=== PATIENT | female | born 1955 | race Caucasian/White ===

== ENCOUNTER 2018-09-24 10:43 | Emergency (ER) | payer BC, SELFPAY ==
--- NOTE | 2018-09-24 10:48 | NUR.NOTE ---
Nursing Note: pt has been having lower abdominal cramps for the past 7 days that have progressively gotten worse. pt states that they feel like uterine cramps however is confidant they are not based on her age pt states that pain comes in waves 10 and is currently 10/10 however PT displays no obvious signs of physical discomfort at this moment
[2018-09-24 10:50] VITALS: BP 161/91; PULSE 70; RESP 18; TEMP 36.8; O2SAT 95
--- NOTE | 2018-09-24 11:12 | DI.CT_ITS ---
SYMPTOMS/DIAGNOSIS: ABDOMINAL PAIN CT OF THE ABDOMEN AND PELVIS: There are no prior comparison exams. Images were performed from the lung bases through the ischial tuberosities after IV and oral contrast. The exam is somewhat limited by lack of intraabdominal fat. There is the question of some focal thickening of the gastric antrum versus contraction. There is also a question of wall thickening versus contraction of a portion of the descending colon. The sigmoid colon and rectum are not opacified with oral contrast. There are a few scattered diverticula but no evidence of diverticulitis. There is no abnormal bowel distention. The appendix appears normal. The lung bases are clear. The liver shows a few tiny cysts. The gallbladder, spleen, pancreas and adrenals are unremarkable. There are a few small bilateral renal cysts. There is no hydronephrosis. The uterus and bladder are unremarkable. There is no free air or free fluid. There is an area of sclerosis in the S1 vertebral body consistent with a bone island. There is mild calcification of the aorta, but no evidence of an aneurysm. There are no significant degenerative changes of the spine. IMPRESSION: Area of questionable wall thickening of the descending colon, which could represent colitis versus non-distention. No diverticula are seen in this area. There is also a question of thickening versus contraction of the antrum of the stomach.
[2018-09-24] MEDS: Breeza Beverage 473 ML BTL PO ×2 (11:28→11:29)
[2018-09-24] MEDS: Omnipaque 350 MG/ML 50 ML BTL PO (11:29)
--- NOTE | 2018-09-24 11:33 | ED.GENADUL_ITS ---
Discharge Plan Disposition Patient Disposition: HOME Condition: Stable Discharge Details Chief Complaint: Abd Prob Clinical Impression: Colitis, acute Primary Care Provider: None,None ED Provider: Jaciel Pyle Home Meds and New Rx's Prescriptions: No Action No Known Home Meds RF: 0 Discharge Instructions Instructions: Colitis (ED) Additional Instructions: Return to the emergency department for any new or significant worsening of symptoms or change in your symptoms. Otherwise we will assist in establishing a primary care provider with you and a follow-up appointment preferably in the next 1 to 2 weeks. You may take 600 mg of ibuprofen along with 650-100mg of Tylenol every 6 hours as needed for discomfort and stay well-hydrated. Referrals: Victor Manuel Espino MD [ [facility] STAFF PHYSICIAN] - (Call the office in the next couple days for arrangement of follow-up appointment) Discharge Data Discharge Date/Time-TO BE ENTERED AT DEPARTURE: 09/24/18 16:11 Medical Decision Making Patient presenting the emergency department chief complaint of lower abdominal pain. X1 week. Patient states crampy abdominal pain that feels somewhat similar to previous menstrual cycles but otherwise is unremarkable. Physical exam shows right lower quadrant tenderness but no suprapubic tenderness. No risk factors for STI as patient is not sexually active. Plan to do labs and CT imaging for lower quadrant tenderness. Pending results patient given Toradol and IV fluids Review of labs show a nonspecific leukocytosis, slightly decreased sodium chloride along with increased anion gap, and some mild urine ketones. I feel that these abnormalities may represent some dehydration so additional liter of IV fluids was given. Review of CT imaging shows a nonspecific colitis otherwise no other acute findings noted by radiologist. Discussed bowel pattern with patient and she states that she is having normal bowel movements but has had more frequency over the past couple days but denies any fever chills, diarrhea. Given nonspecific finding and otherwise non-worrisome lab work-up I feel the patient is able to be safely discharged but close return precautions were discussed with patient. After discussion of diagnosis and plan of care patient has no further needs, questions, or concerns and states clear understanding to return to the emergency department for any worsening symptoms. HPI General Mode of arrival: ambulatory . Date/Time Provider Initiated Documentation: 09/24/18 10:49 . Limitations to Documentation: no limitations . Information obtained by: patient and RN notes reviewed . History of Present Illness 63 year old F presents to the emergency department with the chief complaint of Abdominal pain, described as severe, with intensity rated at 10. Quality is described as sharp (Cramp), and is localized to the abdomen (Lower abdomen). Patient started experiencing this day(s) (7) and it has been constant and colicky. No relieving factors improve symptom(s), No exacerbating factors reported . Patient notes no other symptoms.. Patient did receive the following treatments prior to arrival, NSAID Related Data Home Medications Medication Instructions Recorded Confirmed Unknown [No Known Home Meds] 09/24/18 09/24/18 Allergies Allergy/AdvReac Type Severity Reaction Status Date / Time No Known Allergies Allergy Unverified 09/24/18 10:52 General Stated Complaint: Abd Prob KAREN: 4 Review of Systems Constitutional Denies chills, Denies fever(s) and Denies poor appetite Cardiovascular Denies chest pain and Denies dyspnea Respiratory Denies cough and Denies dyspnea Gastrointestinal Reports as per HPI, Reports abdominal pain, Denies melena, Denies change in bowel habits, Denies constipation, Denies diarrhea, Denies nausea and Denies vomiting Genitourinary Denies abnormal vaginal bleeding, Denies hematuria, Denies dysuria, Denies flank pain, Denies urinary incontinence, Reports vaginal discharge (Single episode 2 weeks ago that resolved after 1 day) and Denies vaginal odor Integumentary/Breasts Denies rash [facility] Social History Smoking/Tobacco Use Status: Former Tobacco Use Tobacco: How many years used: 30 Alcohol Intake: current Alcohol Intake frequency: 0-2 drinks per day Alcohol type: wine Drug use: Rarely Substance use type: does not use Do you feel safe at home: Yes Do you feel safe in your relationship?: Yes Exam Const General: cooperative Orientation: alert, awake and oriented x3 Resp Effort & Inspection: normal respiratory effort and able to speak in complete sentences Auscultation: clear to auscultation bilaterally Cardio Rate: regular rate Rhythm: regular rhythm Heart Sounds: S1 normal and S2 normal GI Palpation: soft, no hepatosplenomegaly, not firm, guarding in the RLQ, no masses, no pulsatile masses, not rigid, no splenomegaly and tender in the RLQ and at McBurney's point; Johnson's sign negative and psoas sign negative Auscultation: normal bowel sounds Back/Spine/Pelvis Back: no CVA tenderness Neuro General: alert, awake, oriented x3, gait normal and moves all extremities Course Vital Signs Temperature 36.8 C 09/24/18 10:50 Pulse 70 09/24/18 10:50 Respiratory Rate 18 09/24/18 10:50 Blood Pressure 161/91 H 09/24/18 10:50 Pulse Oximetry 95 09/24/18 10:50 Temperature 36.8 C 09/24/18 10:50 Temperature Source Skin 09/24/18 10:50 Pulse 70 09/24/18 10:50 Respiratory Rate 18 09/24/18 10:50 Respiratory Effort 09/24/18 10:52 Blood Pressure 161/91 H 09/24/18 10:50 Blood Pressure Position Sitting 09/24/18 10:50 Pulse Oximetry 95 09/24/18 10:50 Oxygen Delivery Method Room Air 09/24/18 10:50 Oxygen Flow Rate 0 09/24/18 10:50 Pain Level 10 09/24/18 10:50
[2018-09-24] MEDS: Ketorolac 15 MG/ML VIAL IVP (11:37)
[2018-09-24 11:43] LABS: Abs Immature Grans 0.02 k/cumm (0.0-0.09); Absolute Basophil Count 0.01 k/cumm (0.0-0.2); Absolute Eosinophil Count 0.02 k/cumm (0.0-0.7); Absolute Lymphocyte Count 0.76 k/cumm (1.2-3.4); Absolute Monocyte Count 0.88 k/cumm (0.11-0.7); Absolute Neutrophil Count 9.61 k/cumm (1.2-6.7); Basophils % 0.1; Eosinophils % 0.2; HCT 44.7 % (36.0-46.0); HGB 15.4 g/dL (12.0-15.5); Immature Grans % 0.2; Lymphocytes % 6.7; Mean Corp. HGB Concentration 34.5 g/dL (32.0-36.0); Mean Corpuscular Hemoglobin 32.1 pg (27.0-33.0); Mean Corpuscular Volume 93.1 fL (80-95); Mean Platelet Volume 9.5 fL (8.0-11.0); Monocytes % 7.8; Platelet Count 213 x1000/uL (130-400); RBC Distribution Width 12.6 % (11.7-14.6)
[2018-09-24 12:09] LABS: ALT 17 U/L (12-78); AST 19 U/L (15-37); Albumin 4.1 g/dL (3.4-5.0); Alkaline Phosphatase 66 U/L (46-116); Anion Gap 12.4 mmol/L (3-11); BUN 7 mg/dL (7-18); Bilirubin, Total 0.7 mg/dL (0.2-1.0); CO2 24.6 mmol/L (21.0-32.0); CREATININE 0.68 mg/dL (0.55-1.02); Chloride 93 mmol/L (98-107); Glucose 82 mg/dL (70-100); Lipase 82 U/L (73-393); Potassium 4.1 mmol/L (3.5-5.1); Sodium 130 mmol/L (136-145); Total Protein 7.5 g/dL (6.4-8.2)
[2018-09-24] MEDS: Normal Saline 1,000 ML 1000 ML IV ×2 (12:24→14:23)
[2018-09-24 13:03] LABS: Bilirubin Negative (Negative); Blood Negative (Negative); Clarity Clear (Clear); Glucose Negative (Negative); Ketones 15 mg/dL (Negative); Leukocyte Esterase Negative (Negative); Nitrite Negative (Negative); Specific Gravity 1.015 (1.005-1.025); Urobilinogen 0.2 EU/dL (Up TO 0.2); pH 6.5 (5-8)
[2018-09-24 16:08] VITALS: BP 119/69; PULSE 69; RESP 18; TEMP 36.3; O2SAT 98
[2018-09-24 16:09] VITALS: BP 119/69; PULSE 69; RESP 18; TEMP 36.3; O2SAT 98
== END 2018-09-24 16:11 | disposition home or self-care (01) ==
PROVIDERS: Emergency Provider Nurse Practitioner Family
DX: K52.9 Noninfective gastroenteritis and colitis, unspecified (principal)
CPT/HCPCS: 36415; 80053; 83690; 96361; 96374; 99285; 74177; 81003; 83735; 85025; 99284; J1885; Q9967

== ENCOUNTER 2019-03-11 14:14 | Outpatient (CLI) | payer BC, SELFPAY ==
[2019-03-11 16:10] LABS: TSH (W/Ref FT4) 0.68 uIU/mL (0.36-3.74)
== END 2019-03-11 14:34 ==
PROVIDERS: Visit Provider Nurse Practitioner Family
DX: N95.0 Postmenopausal bleeding (principal)
CPT/HCPCS: 36415; 84443

== ENCOUNTER 2019-03-11 14:41 | Outpatient (REF) | payer BC, SELFPAY ==
--- NOTE | 2019-03-11 13:30 | PAPFT_PTH ---
PATIENT: Leticia Cortez LOC: [facility] U#:[id number] AGE/SX: 63/F ROOM: RE03/11/[address]: YUE Miller : 1955 BED: DIS: 03/11/2019 SPEC #: [id number] RECD: 03/11/19 17:45 STATUS: KARLEE REQ #: [id number] UVALDO: 03/11/19 13:[address]: Moriah Velasquez DEPT: [facility] Cytology RECD BY: Shae Rondon ENTERED: 03/11/19 17:45 SP TYPE: PAPFT OT DR: None Tissues: 1 - CX/ENDOCX FOR PAP SMEARS Procedures: PAP THIN PREP/UVM Screening HPV DNA PROBE Comments: [id number]
== END 2019-03-11 15:01 ==
LOC: LBN 14:41
PROVIDERS: Visit Provider Nurse Practitioner Family
DX: Z12.4 Encounter for screening for malignant neoplasm of cervix (principal); Z11.51 Encounter for screening for human papillomavirus (HPV)
CPT/HCPCS: 88142; 87624

== ENCOUNTER 2019-03-19 01:16 | Outpatient (CLI) | payer BC, SELFPAY ==
--- NOTE | 2019-03-19 12:56 | DI.US_ITS ---
EXAM: US PELVIS AND TRANSVAGINAL CLINICAL HISTORY: POST MENOPAUSAL BLEEDING N95.0 TECHNIQUE: Ultrasound performed using standard protocol. Transabdominal and transvaginal exams wer e performed. COMPARISON: CT ABDOMEN PELVIS W from 09/24/2018 FINDINGS: The uterus measures 5.2 x 2.7 x 4.1 cm. The endometrium is abnormally thickened for a postmenopausal patient at 8 millimeters. No focal endometrial abnormality is visible. No fibroids are seen. The righ t ovary is unremarkable. The left ovary was not well seen due to adjacent bowel. There is a cyst at t he upper pole of the right kidney. There is a small amount of fluid in the cul-de-sac. IMPRESSION: Abnormally thickened endometrium at 8 millimeters. No focal endometrial abnormality is seen.
--- NOTE | 2019-03-19 14:20 | DI.MAMMO_ITS ---
EXAM: MG MAMMO SCREENING CLINICAL HISTORY: SCREENING, Z12.39. TECHNIQUE: Full field digital CC and MLO mammographic images were obtained with 3D tomosynthesis and utilizing computer aided detection (CAD). COMPARISON: The patient has previous exams performed at [facility] in [place], [place] which are not available for comparison at this time. FINDINGS: Breast Density - Category D - Extremely dense Masses/Architectural Distortion: None seen. Microcalcifications: No suspicious pleomorphic-type calcifications are seen. Skin Thickening/Nipple Retraction: None. Axilla: Unremarkable. IMPRESSION: 1. BI-RADS category 1, negative. No significant interval change with no specific features of maligna ncy noted. 2. Unless there is more urgent need, screening mammography is recommended, as per [employer] guidelines. A negative radiographic report should not delay biopsy if a dominant or clinically suspicious mass is present. Up to ten percent of cancers are not identified on mammography. A negative report may reinforce clinical impression. Adenosis and dense breasts may obscure an underlying neoplasm. False positive reports average 6 to 10%. Patient will receive a letter notifying them of these results.
== END 2019-03-19 01:36 ==
PROVIDERS: Visit Provider Nurse Practitioner Family
DX: Z12.31 Encounter for screening mammogram for malignant neoplasm of breast (principal); N95.0 Postmenopausal bleeding; N28.1 Cyst of kidney, acquired; R93.89 Abnormal findings on diagnostic imaging of other specified body structures
CPT/HCPCS: 77063; 77067; 76830; 76856

== ENCOUNTER 2019-03-24 15:01 | Outpatient (REF) | payer BC, SELFPAY ==
--- NOTE | 2019-03-24 14:20 | ENDOMET_PTH ---
PATIENT: Leticia Cortez LOC: [facility] U#:[id number] AGE/SX: 63/F ROOM: RE03/24/[address]: Roopa Chairez : 1955 BED: DIS: 03/24/2019 SPEC #: [id number] RECD: 03/24/19 16:58 STATUS: KARLEE REQ #: [id number] UVALDO: 03/24/19 14:[address]: Roopa Chairez DEPT: Surgical Specimen RECD BY: Shae Rondon ENTERED: 03/24/19 16:59 SP TYPE: Endomet OTHR DR: None Tissues: 1 - ENDOMETRIUM BX/CURRETTE Procedures: GROSS AND MICRO LEVEL 4 Comments: [id number]
== END 2019-03-24 15:21 ==
LOC: LBN 15:01
PROVIDERS: Visit Provider Obstetrics & Gynecology Gynecology
DX: N84.0 Polyp of corpus uteri (principal); N83.8 Other noninflammatory disorders of ovary, fallopian tube and broad ligament; N95.0 Postmenopausal bleeding
CPT/HCPCS: 88305

== ENCOUNTER 2020-07-20 01:52 | Outpatient (CLI) | payer BC, SELFPAY ==
--- NOTE | 2020-07-20 12:27 | DI.MAMMO_ITS ---
Exam(s) MAMMO SCREENING EXAM: MAMMO SCREENING CLINICAL HISTORY: screening TECHNIQUE: Mammograms were interpreted according to the usual protocol including computer analysis w [employer] CAD system, tomosynthesis and C-view imaging. COMPARISON: FINDINGS: The breasts are very dense. No dominant mass or clumped microcalcification is identified in either b reast. The current examination is compared with previous examinations including February 2019 and the re has been no gross interval change in appearance comparison with previous studies. IMPRESSION: No specific evidence of malignancy at this time. Routine screening examinations are suggested yearly intervals in this age group according to the ACS ACR guidelines. BI-RADS Category 1 - Negative Breast Density - Category D - Extremely dense
== END 2020-07-20 02:12 ==
PROVIDERS: Visit Provider Nurse Practitioner Family
DX: Z12.31 Encounter for screening mammogram for malignant neoplasm of breast (principal)
CPT/HCPCS: 77063; 77067

== ENCOUNTER 2020-09-23 11:03 | Outpatient (CLI) | payer BC, SELFPAY ==
--- NOTE | 2020-09-23 10:45 | DI.RAD_ITS ---
Exam(s) XR HIP RT COMPLETE AP PELVIS EXAM: XR HIP RT COMPLETE AP PELVIS CLINICAL HISTORY: eval R thigh and hip yue. TECHNIQUE: 2D digital imaging was performed. COMPARISON: CT CT ABDOMEN PELVIS W from 09/24/[address] ABDOMEN PELVIS W from 09/24/2018 FINDINGS: No evidence of pelvic nor hip fracture. However, there is an aggressive appearing lytic process in t he right femoral neck. There is loss of the cortex on the lower medial aspect and lucency in the rig ht femoral neck noted. No fracture seen at this time. Hip joint space is not narrowed. The opposit e-left hip appears unremarkable and there are no other osseous lesions in the bones of the pelvis see n. IMPRESSION: Aggressive appearing lytic right hip femoral neck lesion. No fracture seen at this time. This hip appeared unremarkable on CT scan of the abdomen performed September 2018. Findings discussed with orthopedic surgeon following completion of the study 09/23/2020. DATA REPOSITORY: RADIATION DOSE DELIVERED:
== END 2020-09-23 11:04 | disposition home or self-care (01) ==
PROVIDERS: Visit Provider Student in an Organized Health Care Education/Training Program
DX: M79.651 Pain in right thigh (principal); M89.9 Disorder of bone, unspecified
CPT/HCPCS: 73502

== ENCOUNTER 2020-09-24 04:47 | Outpatient (CLI) | payer BC, SELFPAY ==
--- NOTE | 2020-09-24 08:00 | DI.CT_ITS ---
Exam(s) CT CHEST/ABD/PEL W EXAM: CT CHEST/ABD/PEL W CLINICAL HISTORY: new lytic lesion of hip, M89.8X5 TECHNIQUE: CT examination of the chest, abdomen, and pelvis was performed utilizing intravenous inf usion of 100 cc of Omnipaque 350 with biphasic hepatic imaging. Oral contrast was also administered. COMPARISON: CT CT ABDOMEN PELVIS W from 09/24/2018 FINDINGS: There is 7 cm in diameter heterogeneous enhancing mass of the right lower pulmonary lobe extending in to the middle lobe and extending into the hilum on the right. There is subcarinal adenopathy noted m easuring up to about 3 cm in diameter on coronal imaging. No other pulmonary mass or nodularity. Th ere is severe central lobular pulmonary emphysematous change. There is no evidence of pulmonary embo lic disease. Thoracic aorta and major branches appear intact. There is no evidence of axillary or supraclavicular adenopathy. The liver appears normal with no focal hepatic lesion identified. Spleen is unremarkable in appearance. Pancreas appears intact. Adrenals appear normal. Kidneys are unremarkable in appearance with no renal mass, hydronephrosis, or nephrolithiasis. Abdominal aorta and major visceral branches appear intact. No focal bowel pathology. No specific evidence of appendicitis or diverticulitis. No abdominal or pelvic adenopathy. No significant abdominal wall hernia. A right femoral bony lesion is noted as identified on MRI involving the lesser trochanter. Given the appearance CT and large pulmonary mass, findings are most consistent metastatic. No additional foca l bony metastatic lesion identified by CT criteria on scanning of the chest, abdomen, and pelvis. Ad ditional evaluation with bone scan may be obtained if desired to assess for additional bony metastati c lesions. IMPRESSION: Large right lower lobe lung mass with extension into the hilum and central mediastinal adenopathy as described above. Findings are highly suggestive of lung carcinoma. Presumed metastatic lesion lesser trochanter right femur. RADIATION DOSE DELIVERED: 833.23mGy.cm Total DLP 833.23mGy.cm Total DLP CTDIvol RADIATION OPTIMIZATION: All CT scans at this facility use at least one of these dose optimization te chniques: automated exposure control; mA and/or kV adjustment per patient size (includes targeted exa ms where dose is matched to clinical indication); or iterative reconstruction.
--- NOTE | 2020-09-24 08:00 | DI.MRI_ITS ---
Exam(s) MR LOWER EXTREMITY RT WO MR LOWER JOINT RT WO EXAM: MR LOWER JOINT RT WO MR CLINICAL HISTORY: Lytic bone lesion of the hip, M89.8X5. TECHNIQUE: Multiplanar multisequence MRI was performed. COMPARISON: MR MR LOWER EXTREMITY RT WO from 09/24/2020 FINDINGS: MR examination of the pelvis right hip and right was performed without contrast administration. No g ross intrapelvic soft tissue mass identified. Urinary bladder grossly unremarkable. Mild degenerati ve changes noted involving both hips with slight subchondral cyst formation. No significant bony sig nal abnormality involving the bony pelvis. Left proximal femur shows essentially normal signal with probable small femoral head cyst. Muscular attachments on the left appear intact. On the right there is mass which appears to arise from the lesser trochanter of the femur measuring r oughly 6 x 3 cm in diameter on coronal imaging. This shows intermediate signal on T1 weighted imagin g and increased signal on T2 weighted imaging. This has a very irregular border with destruction of the cortex of the lesser trochanter particularly on its inferior aspect. There is mild surrounding m arrow edema or invasion. The iliopsoas attachments on the lesser trochanter appear intact with no evidence of avulsion. There is mildly abnormal cysts signal in adjacent quadriceps musculature without evidence of direct invasi on of the adjacent musculature. I would note that invasion could not be entirely excluded at this si te. The remainder of the thigh shows normal femoral bony marrow signal and normal appearance of the cortex. No distal or mid thigh muscular or tendinous signal abnormality identified. IMPRESSION: Findings highly suggestive of malignant neoplasm arising in the lesser trochanter of the femur on the right as described above. This could represent primary or metastatic neoplasm. Other etiologies in cluding infectious process not excluded. Abnormal signal noted in overlying quadriceps musculature, direct invasion not entirely excluded on t he basis of this examination. No other evidence of neoplastic disease involving the bones of the pelvis. No lymphadenopathy seen. DATA REPOSITORY:
[2020-09-24 13:26] LABS: Abs Immature Grans 0.02 10^3/uL (0.0-0.06); Absolute Basophil Count 0.02 10^3/uL (0.0-0.2); Absolute Eosinophil Count 0.03 10^3/uL (0.0-0.7); Absolute Lymphocyte Count 0.61 10^3/uL (1.2-3.4); Absolute Monocyte Count 0.52 10^3/uL (0.1-0.8); Absolute Neutrophil Count 4.81 10^3/uL (1.2-6.7); Basophils % 0.3; Eosinophils % 0.5; HCT 38.2 % (36.0-46.0); HGB 13.3 g/dL (11.2-15.7); Immature Grans % 0.3; Lymphocytes % 10.1; MCH 32.4 pg (27.0-33.0); MCHC 34.8 % (32.0-36.0); MCV 92.9 fL (80-95); MPV 8.5 fL (8.0-11.0); Monocytes % 8.7; Neutrophils % 80.1; Nucleated RBC 0 %; Platelet Count 287 10^3/uL (130-400); RBC 4.11 10^6/uL (3.93-5.22); RDW 12.1 % (11.7-14.6); RDW-SD 41.3 fL; WBC 6.01 10^3/uL (4.4-10.8)
[2020-09-24 13:29] LABS: ESR 21 mm/hr (0-30)
[2020-09-24 13:38] LABS: ALT 18 U/L (14-59); AST 17 U/L (15-37); Albumin 3.9 g/dL (3.4-5.0); Alkaline Phosphatase 80 U/L (46-116); Anion Gap 8.2 mmol/L (3-11); BUN 7 mg/dL (7-18); Bilirubin, Total 0.5 mg/dL (0.2-1.0); C-Reactive Protein 0.26 mg/dL (0.0-0.3); CO2 28.8 mmol/L (21.0-32.0); CREATININE 0.6 mg/dL (0.55-1.02); Calcium 9.1 mg/dL (8.5-10.1); Chloride 93 mmol/L (98-107); Glucose 96 mg/dL (74-106); Potassium 3.8 mmol/L (3.5-5.1); Sodium 130 mmol/L (136-145); Total Protein 7.6 g/dL (6.4-8.2)
[2020-09-24] MEDS: Omnipaque 350 MG/ML 100 ML BTL IJ (14:51)
[2020-09-24] MEDS: Normal Saline Flush 10 ML SYR IVP (14:52)
[2020-09-24] MEDS: Normal Saline - Diluent 50 ML VIAL IV (14:52)
[2020-09-24] MEDS: Omnipaque 350 MG/ML 50 ML BTL PO (15:07)
[2020-09-24] MEDS: Breeza Beverage 473 ML BTL PO (15:07)
== END 2020-09-24 05:07 ==
PROVIDERS: PCP Family Medicine; Visit Provider Student in an Organized Health Care Education/Training Program
DX: M89.8X8 Other specified disorders of bone, other site (principal); M79.651 Pain in right thigh; R91.8 Other nonspecific abnormal finding of lung field; R59.0 Localized enlarged lymph nodes
CPT/HCPCS: 73721; 74177; 80053; 85652; 71260; 73718; 85025; 86140; J3490; Q9967

== ENCOUNTER 2020-10-20 06:35 | Emergency (ER) | payer BC, SELFPAY ==
[2020-10-20] VITALS (56 sets, daily range): BP systolic 122–177; BP diastolic 68–115; PULSE 71–104; RESP 13–23; TEMP 36.1–36.5; O2SAT 91–96
--- NOTE | 2020-10-20 06:55 | W.ED.GENAD ---
Discharge Plan Disposition Patient Disposition: STILL A PATIENT Condition: Stable Discharge Details Clinical Impression: Right thigh pain, Lytic bone lesion of hip, Fall Primary Care Provider: Ok Garcia ED Provider: Mitchell Arana Home Meds and New Rx's Prescriptions: No Action multivitamin [Daily Multi-Vitamin] Tablet 1 tab PO DAILY RF: 0 cholecalciferol (vitamin D3) 2,000 unit/drop drops 2,000 unit PO DAILY RF: 0 loratadine [Claritin] 10 mg tablet 10 mg PO DAILY RF: 0 cyclobenzaprine 5 mg tablet 5 mg PO TID PRN (Reason: muscle spasm) Qty: 20 RF: 0 magnesium 200 mg tablet 400 mg PO DAILY Qty: 60 RF: 1 Discharge Data Discharge Date/Time-TO BE ENTERED AT DEPARTURE: 10/20/20 17:37 Medical Decision Making <Jacob Oliveros MD - Last Filed: 10/20/20 07:01> 65 yo female with hx of recently diagnosed right hip lesion likely metastatic from a lung mass also recently found and is in the process of having this worked up per patient and is scheduled for biopsies. She has been using crutches at request of Dr. Wooten for concern her right hip was at risk of having a fracture with minimal trauma and she has had pain for a month in the right hip/thigh. Last night around 8pm she was using her crutches when she thinks she misplaced the crutches on the ground, went off balance and fell. Denies loss of consciousness. Denies headache, neck pain, chest pain, abdomen pain, back pain. She localizes the pain to lateral right hip and right proximal thigh. No pain in the knee, tibia, ankle or foot with intact sensation and pulses. Given her history concern for possible pathological fracture, will obtain labs in case she does have a fracture and obtain xrays patient signed out to oncoming provider pending xrays and reasessment, if unable to bear any weight and xrays negative may need to have ct of the hip/femur Differential Diagnosis Differential Diagnosis: pathological fracture, muscle spasm Medical Records Medical records reviewed: Yes I reviewed the patient's medical records. <Noe Simmons MD - Last Filed: 10/20/20 10:26> Patient signout from Dr. Oliveros. Please see his note regarding details of the initial presentation, exam and plan of care. Patient's laboratories reveal some hyponatremia of 126. Normal renal function negative for pulmonary. X-ray reveals right femoral neck/subcapital hip fracture. Patient's pain improved with hydromorphone. Case discussed with Dr. Romo. Patient will require transfer to [facility] for proximal femur replacement, and has been previously referred to the orthopedics department at [facility], Dr. Kelley with plans for biopsy, as well as to oncology with appointment pending. Patient reports being fully immunized against COVID-19. A screening COVID-19 test for anticipated procedure was obtained. Case discussed with Dr Guerin, [facility] [place] and pt accepted in transfer. Lab Data Lab results reviewed: Yes I reviewed the patient's lab results. Lab results narrative: Laboratory Results - last 24 hr 10/20/20 10/20/20 10/20/20 07:28 07:28 07:28 WBC 8.96 RBC 4.29 Hgb 13.7 Hct 39.5 MCV 92.1 MCH 31.9 MCHC 34.7 RDW 12.2 Plt Count 281 MPV 8.4 Immature Gran % 0.4 Neutrophils % 87.1 Lymphocytes % 3.3 Monocytes % 9.0 Eosinophils % 0.0 Basophils % 0.2 Nucleated RBC % 0 Absolute Neutrophils 7.79 H Absolute Lymphocytes 0.30 L Absolute Monocytes 0.81 H Absolute Eosinophils 0.00 Absolute Basophils 0.02 Sodium 126 L Potassium 3.6 Chloride 90 L Carbon Dioxide 27.0 Anion Gap 9.0 BUN 7 Creatinine 0.5 L Estimated GFR/1.73 m2 >= 60.00 Glucose 115 H Calcium 8.9 Magnesium 1.9 Total Bilirubin 0.9 AST 23 ALT 25 Alkaline Phosphatase 95 Troponin I < 0.05 Total Protein 8.0 Albumin 4.0 COVID-19 Source SARS-CoV-2 (PCR) Patient ABO/Rh Antibody Screen 10/20/20 10/20/20 07:28 09:07 WBC RBC Hgb Hct MCV MCH MCHC RDW Plt Count MPV Immature Gran % Neutrophils % Lymphocytes % Monocytes % Eosinophils % Basophils % Nucleated RBC % Absolute Neutrophils Absolute Lymphocytes Absolute Monocytes Absolute Eosinophils Absolute Basophils Sodium Potassium Chloride Carbon Dioxide Anion Gap BUN Creatinine Estimated GFR/1.73 m2 Glucose Calcium Magnesium Total Bilirubin AST ALT Alkaline Phosphatase Troponin I Total Protein Albumin COVID-19 Source Nasal/Nares SARS-CoV-2 (PCR) Negative Patient ABO/Rh O Positive Antibody Screen NEGATIVE Labs: Laboratory Results - last 24 hr 10/20/20 10/20/20 10/20/20 07:28 07:28 07:28 WBC 8.96 RBC 4.29 Hgb 13.7 Hct 39.5 MCV 92.1 MCH 31.9 MCHC 34.7 RDW 12.2 Plt Count 281 MPV 8.4 Immature Gran % 0.4 Neutrophils % 87.1 Lymphocytes % 3.3 Monocytes % 9.0 Eosinophils % 0.0 Basophils % 0.2 Nucleated RBC % 0 Absolute Neutrophils 7.79 H Absolute Lymphocytes 0.30 L Absolute Monocytes 0.81 H Absolute Eosinophils 0.00 Absolute Basophils 0.02 Sodium 126 L Potassium 3.6 Chloride 90 L Carbon Dioxide 27.0 Anion Gap 9.0 BUN 7 Creatinine 0.5 L Estimated GFR/1.73 m2 >= 60.00 Glucose 115 H Calcium 8.9 Magnesium 1.9 Total Bilirubin 0.9 AST 23 ALT 25 Alkaline Phosphatase 95 Troponin I < 0.05 Total Protein 8.0 Albumin 4.0 Patient ABO/Rh Antibody Screen 10/20/20 07:28 WBC RBC Hgb Hct MCV MCH MCHC RDW Plt Count MPV Immature Gran % Neutrophils % Lymphocytes % Monocytes % Eosinophils % Basophils % Nucleated RBC % Absolute Neutrophils Absolute Lymphocytes Absolute Monocytes Absolute Eosinophils Absolute Basophils Sodium Potassium Chloride Carbon Dioxide Anion Gap BUN Creatinine Estimated GFR/1.73 m2 Glucose Calcium Magnesium Total Bilirubin AST ALT Alkaline Phosphatase Troponin I Total Protein Albumin Patient ABO/Rh O Positive Antibody Screen NEGATIVE HPI <Jacob Oliveros MD - Last Filed: 10/20/20 07:01> General Mode of arrival: EMS. Date/Time Provider Initiated Documentation: 10/20/20 06:44. Limitations to Documentation: no limitations. Information obtained by: patient. History of Present Illness 65 year old F presents to the emergency department with the chief complaint of right hip/thigh pain, described as severe, with intensity rated at 9. Quality is described as aching, Patient reports no radiation. Patient started experiencing this month(s) (1) and it has been constant. Rest improves symptom(s), Movement worsens symptoms . Patient notes no other symptoms.. Patient did receive the following treatments prior to arrival, NSAID Related Data Home Medications Medication Instructions Recorded Confirmed cholecalciferol (vitamin D3) 2,000 unit PO DAILY 03/11/19 10/20/20 multivitamin 1 tab PO DAILY 03/11/19 10/20/20 cyclobenzaprine 5 mg tablet 5 mg PO TID PRN #20 tab 09/02/20 10/20/20 magnesium 200 mg tablet 400 mg PO DAILY #60 tab 09/02/20 10/20/20 loratadine 10 mg tablet 10 mg PO DAILY 10/07/20 10/20/20 Previous Rx's Medication Instructions Recorded cyclobenzaprine 5 mg tablet 5 mg PO TID PRN #20 tab 09/02/20 magnesium 200 mg tablet 400 mg PO DAILY #60 tab 09/02/20 Allergies Allergy/AdvReac Type Severity Reaction Status Date / Time No Known Allergies Allergy Verified 10/20/20 07:37 General Stated Complaint: Orthopedic KAREN: 2 Review of Systems <Jacob Oliveros MD - Last Filed: 10/20/20 07:01> All systems reviewed & are unremarkable except as noted in HPI and below Constitutional Constitutional: Denies chills, Denies fever(s) and Denies weakness Cardiovascular Cardiovascular: Denies chest pain and Denies dyspnea Respiratory Respiratory: Denies cough and Denies dyspnea Gastrointestinal Gastrointestinal: Denies abdominal pain, Denies nausea and Denies vomiting Musculoskeletal Musculoskeletal: Denies joint swelling Neurologic Neurologic: Denies weakness PFS <Jacob Oliveros MD - Last Filed: 10/20/20 07:01> Medical History (Updated 10/20/20 @ 07:01 by Jacob Oliveros MD) Lung cancer, lower lobe Family History Mother Hypertension Maternal Grandmother Stroke Social History Smoking/Tobacco Use Status: Former Tobacco Use Tobacco: How many years used: 30 Smoking risk assessment performed?: Yes Alcohol Intake: current Alcohol Intake frequency: 0-2 drinks per day Alcohol type: wine Drug use: Rarely Substance use type: does not use Adopted: No Caregiver/Support person: No Household members: children and other Details: Moved from [place] 2019 helps daughter on her farm Number of Children: 3 number of grandchildren: 9 Communication Needs: None Education Level: master's degree Do you need help understanding health information?: Rarely 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 Pets and animals: Yes (1) Pets and animals: dog(s) Sexually active: No Do you think of yourself as: straight/heterosexual Current gender identity: female What is your relationship status?: How often do you talk on the phone with friends or family?: once per week Do you belong to any clubs or organized social groups?: no Panel score (0-1 are the most socially isolated patients): 0 What type of physical activity do you participate in: regular exercise Duration: 45-60 minutes/day Frequency: 5-6 times per week Lana/Faith: Druze Special lana needs: No Seatbelt use: always Helmet use: Yes Helmet use: always Drive intox or ride w/intox helper/driver: No Do you feel safe at home: Yes Do you feel safe in your relationship?: Yes Female Reproductive History Menstrual Menopause type: natural History History 3 Para 3 Hx # Term Pregnancies Multiple births Hx # Pregnancies Ectopic pregnancies AB induced Hx Number of Living Children AB spontaneous Exam <Jacob Oliveros MD - Last Filed: 10/20/20 07:01> Const General: no acute distress Orientation: alert HENMS Head: normal to inspection Ears: external ears normal General nose exam: external nose normal Mouth: moist mucous membranes Eyes General: appearance normal, both eyes and all related structures Neck Neck: normal visual inspection Resp Effort & Inspection: normal respiratory effort and able to speak in complete sentences Cardio Rate: regular rate Skin General skin exam: no rashes or lesions noted Neuro General: patient alert and patient oriented x3 Extrem General: capillary refill normal Psych Mental Status: mental status grossly normal Course <Jacob Oliveros MD - Last Filed: 10/20/20 07:01> Vital Signs Vital signs: Vital Signs Temperature 36.5 C 10/20/20 06:37 Pulse 101 H 10/20/20 06:37 Respiratory Rate 10/20/20 06:37 Blood Pressure 172/106 H 10/20/20 06:37 Pulse Oximetry 95 10/20/20 06:37 Temperature 36.5 C 10/20/20 06:37 Temperature Source Temporal Artery Scan 10/20/20 06:37 Pulse 101 H 10/20/20 06:37 Respiratory Rate 10/20/20 06:37 Respiratory Effort Non-Labored 10/20/20 06:45 Blood Pressure 172/106 H 10/20/20 06:37 Blood Pressure Position Sitting 10/20/20 06:37 Pulse Oximetry 95 10/20/20 06:37 Oxygen Delivery Method Room Air 10/20/20 06:37 Oxygen Flow Rate 0 10/20/20 06:37 Pain Level 9 10/20/20 06:37 Sign Out <Jacob Oliveros MD - Last Filed: 10/20/20 07:01> Sign Out Data: Sign Out Comment: former smoker recently found to have lung mass and lytic lesion in right hip which is likely mets, scheduled for biopsies, fell last night using her crutches and has increased right hip/thigh pain. Pending xrays and reassessment. If unable to bear weight may need ct Last updated by Jacob Oliveros MD at 10/20/20 07:03 Sign Out Comment: [place] [facility] [place] Last updated by Noe Simmons MD at 10/20/20 16:04
--- NOTE | 2020-10-20 07:15 | RT.EKG_ITS ---
APPROVED REPORT Exam: Resting ECG Reason for Exam: chest pain Patient Location: E HR:95 bpm ECG Measurements Heart Rate 95 AXIS MN 127 P 78 QRSd 77 QRS -34 QT 347 T [id number] QTc 435 Conclusion Sinus rhythm...normal P axis, V-rate 60- 99 Anterior Q waves Q >40mS, abnormal ST-T, V2-V5, no ST elev
[2020-10-20] MEDS: Normal Saline Flush 10 ML SYR IVP ×2 (07:36→08:52)
[2020-10-20] MEDS: HYDROmorphone 2 MG/ML VIAL 0.5 MG IVP ×3 (07:36→16:47)
[2020-10-20 07:39] LABS: Abs Immature Grans 0.04 10^3/uL (0.0-0.06); Absolute Basophil Count 0.02 10^3/uL (0.0-0.2); Absolute Monocyte Count 0.81 10^3/uL (0.1-0.8); Absolute Neutrophil Count 7.79 10^3/uL (1.2-6.7); Basophils % 0.2; HCT 39.5 % (36.0-46.0); HGB 13.7 g/dL (11.2-15.7); Immature Grans % 0.4; Lymphocytes % 3.3; MCH 31.9 pg (27.0-33.0); MCHC 34.7 % (32.0-36.0); MCV 92.1 fL (80-95); MPV 8.4 fL (8.0-11.0); Neutrophils % 87.1; Nucleated RBC 0 %; Platelet Count 281 10^3/uL (130-400); RBC 4.29 10^6/uL (3.93-5.22); RDW 12.2 % (11.7-14.6); RDW-SD 40.8 fL; WBC 8.96 10^3/uL (4.4-10.8)
[2020-10-20 07:58] LABS: Magnesium 1.9 mg/dL (1.8-2.4)
[2020-10-20 08:05] LABS: ALT 25 U/L (14-59); AST 23 U/L (15-37); Alkaline Phosphatase 95 U/L (46-116); BUN 7 mg/dL (7-18); Bilirubin, Total 0.9 mg/dL (0.2-1.0); CREATININE 0.5 mg/dL (0.55-1.02); Calcium 8.9 mg/dL (8.5-10.1); Chloride 90 mmol/L (98-107); Glucose 115 mg/dL (74-106); Potassium 3.6 mmol/L (3.5-5.1); Sodium 126 mmol/L (136-145)
--- NOTE | 2020-10-20 08:08 | DI.RAD_ITS ---
Exam(s) XR PELVIS AP XR FEMUR RT EXAM: XR PELVIS AP and XR femur RT CLINICAL HISTORY: pain s/p fall. TECHNIQUE: 2D digital imaging was performed. COMPARISON: CR XR HIP RT COMPLETE AP PELVIS from 09/23/2020 FINDINGS: BONES: There is an acute pathologic fracture through the right femoral neck. There is mild comminuti on. The distal fracture is displaced proximally. The femoral head is seated within the acetabulum. No other fracture is seen. JOINTS: No dislocation present. No joint space narrowing is present. SOFT TISSUE: Normal. IMPRESSION: Acute mildly comminuted and displaced pathologic fracture through the right femoral neck. DATA REPOSITORY: RADIATION DOSE DELIVERED:
--- NOTE | 2020-10-20 08:08 | DI.RAD_ITS ---
Exam(s) XR CHEST 1V IN DI DEPT EXAM: XR CHEST 1V IN DI DEPT CLINICAL HISTORY: fall TECHNIQUE: 2D digital imaging was performed. COMPARISON: No exams were available for comparison FINDINGS: MEDIASTINUM: Normal. HEART: Normal. PULMONARY VASCULATURE: Normal. LUNGS: There is a 6 x 6 cm mass in the right lung base suspicious for carcinoma. No focal consolidat ing infiltrates. PLEURAL SPACE: No pleural effusion or pneumothorax. BONE:Within normal limits for the patient's age. OTHER FINDINGS:Normal. IMPRESSION: 6 x 6 cm mass in the right lung suspicious for carcinoma. CT scan of the chest may be obtained for f urther evaluation. DATA REPOSITORY: RADIATION DOSE DELIVERED:
[2020-10-20 08:09] LABS: Troponin I < 0.05 ng/mL (<0.06)
[2020-10-20] MEDS: Normal Saline 1,000 ML 125 ML IV ×2 (08:52→16:48)
[2020-10-20 09:13] LABS: Source Nasal/Nares
[2020-10-20 10:16] LABS: COVID-19 PCR Negative (Negative)
== END 2020-10-20 17:37 | disposition still patient (30) ==
PROVIDERS: Emergency Medicine; Emergency Provider Student in an Organized Health Care Education/Training Program; PCP Family Medicine
DX: S72.001A Fracture of unspecified part of neck of right femur, initial encounter for closed fracture (principal); M89.8X5 Other specified disorders of bone, thigh; E87.1 Hypo-osmolality and hyponatremia; R91.8 Other nonspecific abnormal finding of lung field; Z20.822 Contact with and (suspected) exposure to COVID-19; Z03.818 Encounter for observation for suspected exposure to other biological agents ruled out
CPT/HCPCS: 36415; 51702; 73552; 80053; 86850; 86900; 86901; 87635; 93005; 96361; 96374; 96376; 99285; 71045; 72170; 83735; 84484; 85025; 93010

== ENCOUNTER 2020-11-15 02:48 | Outpatient (RCR) | payer BC, SELFPAY ==
[2020-11-15 09:00] LABS: ALT 18 U/L (14-59); AST 14 U/L (15-37); Albumin 3.6 g/dL (3.4-5.0); Alkaline Phosphatase 84 U/L (46-116); Anion Gap 9.2 mmol/L (3-11); BUN 8 mg/dL (7-18); Bilirubin, Total 0.4 mg/dL (0.2-1.0); CO2 26.8 mmol/L (21.0-32.0); CREATININE 0.7 mg/dL (0.55-1.02); Calcium 9.1 mg/dL (8.5-10.1); Chloride 95 mmol/L (98-107); Glucose 103 mg/dL (74-106); Sodium 131 mmol/L (136-145); Total Protein 7.3 g/dL (6.4-8.2)
[2020-11-15] MEDS: Normal Saline Flush 10 ML SYR IVP (09:00)
== END 2020-11-18 23:59 | disposition home or self-care (01) ==
LOC: INF 02:48
PROVIDERS: PCP Family Medicine; Visit Provider Internal Medicine Medical Oncology
DX: C34.31 Malignant neoplasm of lower lobe, right bronchus or lung (principal)
CPT/HCPCS: 36415; 80053

== ENCOUNTER 2020-11-29 09:33 | Outpatient (CLI) | payer BC, SELFPAY ==
[2020-11-29 09:31] LABS: Abs Immature Grans 0.01 10^3/uL (0.0-0.06); Absolute Basophil Count 0.01 10^3/uL (0.0-0.2); Absolute Eosinophil Count 0.01 10^3/uL (0.0-0.7); Absolute Lymphocyte Count 0.33 10^3/uL (1.2-3.4); Absolute Monocyte Count 0.41 10^3/uL (0.1-0.8); Absolute Neutrophil Count 1.29 10^3/uL (1.2-6.7); Basophils % 0.5; Eosinophils % 0.5; HCT 34.9 % (36.0-46.0); HGB 11.1 g/dL (11.2-15.7); Immature Grans % 0.5; MCHC 31.8 % (32.0-36.0); MCV 97.5 fL (80-95); MPV 8.1 fL (8.0-11.0); Monocytes % 19.9; Neutrophils % 62.6; Nucleated RBC 0 %; Platelet Count 180 10^3/uL (130-400); RBC 3.58 10^6/uL (3.93-5.22); RDW 13.5 % (11.7-14.6); RDW-SD 48.3 fL; WBC 2.06 10^3/uL (4.4-10.8)
[2020-11-29 10:03] LABS: ALT 32 U/L (14-59); AST 26 U/L (15-37); Albumin 3.5 g/dL (3.4-5.0); Alkaline Phosphatase 77 U/L (46-116); Anion Gap 6.3 mmol/L (3-11); BUN 7 mg/dL (7-18); Bilirubin, Total 0.3 mg/dL (0.2-1.0); CO2 28.7 mmol/L (21.0-32.0); CREATININE 0.6 mg/dL (0.55-1.02); Calcium 8.1 mg/dL (8.5-10.1); Chloride 97 mmol/L (98-107); FREE T4 1.06 ng/dL (0.76-1.46); Glucose 99 mg/dL (74-106); Magnesium 2.2 mg/dL (1.8-2.4); Potassium 3.9 mmol/L (3.5-5.1); Sodium 132 mmol/L (136-145); TSH 0.53 uIU/mL (0.36-3.74); Total Protein 6.9 g/dL (6.4-8.2)
== END 2020-11-29 09:34 | disposition home or self-care (01) ==
LOC: LBO 09:40
PROVIDERS: PCP Family Medicine; Visit Provider Internal Medicine Medical Oncology
DX: C34.31 Malignant neoplasm of lower lobe, right bronchus or lung (principal); Z79.899 Other long term (current) drug therapy
CPT/HCPCS: 36415; 80053; 83735; 84439; 84443; 85025

== ENCOUNTER 2020-12-06 02:28 | Outpatient (RCR) | payer BC, SELFPAY ==
[2020-12-06] MEDS: Normal Saline Flush 10 ML SYR IVP (08:26)
[2020-12-06 08:36] LABS: Abs Immature Grans 0.02 10^3/uL (0.0-0.06); Absolute Basophil Count 0.03 10^3/uL (0.0-0.2); Absolute Eosinophil Count 0.06 10^3/uL (0.0-0.7); Absolute Lymphocyte Count 0.91 10^3/uL (1.2-3.4); Absolute Monocyte Count 0.92 10^3/uL (0.1-0.8); Absolute Neutrophil Count 2.75 10^3/uL (1.2-6.7); Basophils % 0.6; Eosinophils % 1.3; HCT 34.7 % (36.0-46.0); Immature Grans % 0.4; Lymphocytes % 19.4; MCH 30.2 pg (27.0-33.0); MCHC 31.7 % (32.0-36.0); MCV 95.3 fL (80-95); MPV 8.4 fL (8.0-11.0); Monocytes % 19.6; Neutrophils % 58.7; Nucleated RBC 0 %; Platelet Count 363 10^3/uL (130-400); RBC 3.64 10^6/uL (3.93-5.22); RDW 13.6 % (11.7-14.6); RDW-SD 47.8 fL; WBC 4.69 10^3/uL (4.4-10.8)
[2020-12-06 09:27] LABS: ALT 25 U/L (14-59); AST 25 U/L (15-37); Albumin 3.3 g/dL (3.4-5.0); Alkaline Phosphatase 81 U/L (46-116); Anion Gap 8.2 mmol/L (3-11); BUN 4 mg/dL (7-18); Bilirubin, Total 0.2 mg/dL (0.2-1.0); CO2 26.8 mmol/L (21.0-32.0); CREATININE 0.6 mg/dL (0.55-1.02); Calcium 8.3 mg/dL (8.5-10.1); Chloride 99 mmol/L (98-107); FREE T4 1.26 ng/dL (0.76-1.46); Glucose 104 mg/dL (74-106); Magnesium 2.2 mg/dL (1.8-2.4); Potassium 3.7 mmol/L (3.5-5.1); Sodium 134 mmol/L (136-145); TSH 0.58 uIU/mL (0.36-3.74); Total Protein 6.9 g/dL (6.4-8.2)
== END 2020-12-19 23:59 | disposition home or self-care (01) ==
LOC: INF 02:28
PROVIDERS: PCP Family Medicine; Visit Provider Internal Medicine Medical Oncology
DX: C34.31 Malignant neoplasm of lower lobe, right bronchus or lung (principal); Z79.899 Other long term (current) drug therapy
CPT/HCPCS: 36415; 80053; 83735; 84439; 84443; 85025

== ENCOUNTER 2021-01-18 02:14 | Outpatient (RCR) | payer BC, SELFPAY ==
[2020-12-27 08:58] LABS: Abs Immature Grans 0.01 10^3/uL (0.0-0.06); Absolute Basophil Count 0.02 10^3/uL (0.0-0.2); Absolute Eosinophil Count 0.08 10^3/uL (0.0-0.7); Absolute Lymphocyte Count 0.69 10^3/uL (1.2-3.4); Absolute Monocyte Count 0.74 10^3/uL (0.1-0.8); Absolute Neutrophil Count 3.19 10^3/uL (1.2-6.7); Basophils % 0.4; Eosinophils % 1.7; Immature Grans % 0.2; Lymphocytes % 14.6; MCH 30.5 pg (27.0-33.0); MCHC 32.4 % (32.0-36.0); MCV 94.1 fL (80-95); MPV 8.7 fL (8.0-11.0); Monocytes % 15.6; Neutrophils % 67.5; Nucleated RBC 0 %; Platelet Count 301 10^3/uL (130-400); RBC 3.93 10^6/uL (3.93-5.22); RDW 15.2 % (11.7-14.6); RDW-SD 53.8 fL; WBC 4.73 10^3/uL (4.4-10.8)
[2020-12-27 09:28] LABS: ALT 21 U/L (14-59); AST 17 U/L (15-37); Albumin 3.4 g/dL (3.4-5.0); Alkaline Phosphatase 79 U/L (46-116); Anion Gap 9.3 mmol/L (3-11); BUN 6 mg/dL (7-18); Bilirubin, Total 0.4 mg/dL (0.2-1.0); CO2 26.7 mmol/L (21.0-32.0); CREATININE 0.6 mg/dL (0.55-1.02); Calcium 8.6 mg/dL (8.5-10.1); Chloride 92 mmol/L (98-107); FREE T4 1.03 ng/dL (0.76-1.46); Glucose 98 mg/dL (74-106); Potassium 3.7 mmol/L (3.5-5.1); Sodium 128 mmol/L (136-145); TSH 0.45 uIU/mL (0.36-3.74); Total Protein 7.3 g/dL (6.4-8.2)
[2021-01-17 08:40] LABS: Absolute Basophil Count 0.03 10^3/uL (0.0-0.2); Absolute Eosinophil Count 0.16 10^3/uL (0.0-0.7); Absolute Lymphocyte Count 0.81 10^3/uL (1.2-3.4); Basophils % 0.9; Eosinophils % 4.8; HGB 12.5 g/dL (11.2-15.7); Lymphocytes % 24.5; MCH 31.6 pg (27.0-33.0); MCHC 32.9 % (32.0-36.0); Monocytes % 21.2; Neutrophils % 48.6; Nucleated RBC 0 %; Platelet Count 235 10^3/uL (130-400); RBC 3.96 10^6/uL (3.93-5.22); RDW 16.9 % (11.7-14.6); RDW-SD 60.1 fL
[2021-01-17 09:05] LABS: ALT 92 U/L (14-59); AST 72 U/L (15-37); Albumin 3.7 g/dL (3.4-5.0); Alkaline Phosphatase 165 U/L (46-116); Anion Gap 6.7 mmol/L (3-11); BUN 8 mg/dL (7-18); Bilirubin, Total 0.3 mg/dL (0.2-1.0); CO2 29.3 mmol/L (21.0-32.0); CREATININE 0.7 mg/dL (0.55-1.02); Calcium 8.9 mg/dL (8.5-10.1); Chloride 96 mmol/L (98-107); FREE T4 1.04 ng/dL (0.76-1.46); Glucose 115 mg/dL (74-106); Magnesium 1.7 mg/dL (1.8-2.4); Potassium 3.7 mmol/L (3.5-5.1); Sodium 132 mmol/L (136-145); Total Protein 7.5 g/dL (6.4-8.2)
== END 2021-01-18 23:59 | disposition home or self-care (01) ==
LOC: INF 02:14
PROVIDERS: PCP Family Medicine; Visit Provider Internal Medicine Medical Oncology
DX: C34.31 Malignant neoplasm of lower lobe, right bronchus or lung (principal); Z79.899 Other long term (current) drug therapy
CPT/HCPCS: 36415; 80053; 83735; 84439; 84443; 85025

== ENCOUNTER 2021-02-07 01:21 | Outpatient (RCR) | payer BC, SELFPAY ==
[2021-01-26 11:14] LABS: Hepatitis B Surface Ag Negative (Negative)
[2021-01-26 11:23] LABS: HBs Antibody, Quant <3.1 mIU/mL (See Note); Hepatitis B Surface Ab Negative (See Note)
[2021-01-26 11:43] LABS: Hepatitis C Ab w Rflx HCV PCR Negative (Negative)
[2021-02-07 09:01] LABS: Abs Immature Grans 0.02 10^3/uL (0.0-0.06); Absolute Basophil Count 0.02 10^3/uL (0.0-0.2); Absolute Lymphocyte Count 0.72 10^3/uL (1.2-3.4); Absolute Monocyte Count 0.63 10^3/uL (0.1-0.8); Absolute Neutrophil Count 1.64 10^3/uL (1.2-6.7); Basophils % 0.6; Eosinophils % 3.2; HCT 36.8 % (36.0-46.0); HGB 12.2 g/dL (11.2-15.7); Immature Grans % 0.6; MCH 32.1 pg (27.0-33.0); MCHC 33.2 % (32.0-36.0); MCV 96.8 fL (80-95); MPV 8.7 fL (8.0-11.0); Monocytes % 20.1; Neutrophils % 52.5; Nucleated RBC 0 %; Platelet Count 276 10^3/uL (130-400); RDW 18.4 % (11.7-14.6); RDW-SD 65.1 fL; WBC 3.13 10^3/uL (4.4-10.8)
[2021-02-07 09:31] LABS: ALT 21 U/L (14-59); AST 26 U/L (15-37); Albumin 3.7 g/dL (3.4-5.0); Alkaline Phosphatase 71 U/L (46-116); Anion Gap 6.1 mmol/L (3-11); BUN 6 mg/dL (7-18); Bilirubin, Total 0.4 mg/dL (0.2-1.0); CO2 28.9 mmol/L (21.0-32.0); CREATININE 0.6 mg/dL (0.55-1.02); Calcium 8.7 mg/dL (8.5-10.1); Chloride 96 mmol/L (98-107); FREE T4 0.96 ng/dL (0.76-1.46); Glucose 97 mg/dL (74-106); Magnesium 1.9 mg/dL (1.8-2.4); Potassium 3.5 mmol/L (3.5-5.1); Sodium 131 mmol/L (136-145); TSH 0.84 uIU/mL (0.36-3.74); Total Protein 7.6 g/dL (6.4-8.2)
== END 2021-02-18 23:59 | disposition home or self-care (01) ==
LOC: INF 01:21
PROVIDERS: PCP Family Medicine; Visit Provider Internal Medicine Medical Oncology
DX: C34.31 Malignant neoplasm of lower lobe, right bronchus or lung (principal); Z79.899 Other long term (current) drug therapy; C79.51 Secondary malignant neoplasm of bone
CPT/HCPCS: 36415; 80053; 86706; 86803; 87340; 83735; 84439; 84443; 85025

== ENCOUNTER 2021-03-21 01:15 | Outpatient (RCR) | payer BC, SELFPAY ==
[2021-02-28 13:03] LABS: Abs Immature Grans 0.01 10^3/uL (0.0-0.06); Absolute Basophil Count 0.03 10^3/uL (0.0-0.2); Absolute Eosinophil Count 0.13 10^3/uL (0.0-0.7); Absolute Lymphocyte Count 0.73 10^3/uL (1.2-3.4); Absolute Monocyte Count 0.87 10^3/uL (0.1-0.8); Basophils % 0.6; Eosinophils % 2.7; HCT 36.9 % (36.0-46.0); Immature Grans % 0.2; Lymphocytes % 15.3; MCH 33.8 pg (27.0-33.0); MCHC 32.5 % (32.0-36.0); MCV 103.9 fL (80-95); MPV 8.9 fL (8.0-11.0); Monocytes % 18.2; Nucleated RBC 0 %; Platelet Count 331 10^3/uL (130-400); RBC 3.55 10^6/uL (3.93-5.22); RDW 17.1 % (11.7-14.6); RDW-SD 66.4 fL; WBC 4.77 10^3/uL (4.4-10.8)
[2021-02-28 13:25] LABS: ALT 19 U/L (14-59); AST 24 U/L (15-37); Albumin 3.6 g/dL (3.4-5.0); Alkaline Phosphatase 53 U/L (46-116); Anion Gap 6.7 mmol/L (3-11); BUN 9 mg/dL (7-18); Bilirubin, Total 0.5 mg/dL (0.2-1.0); CO2 30.3 mmol/L (21.0-32.0); CREATININE 0.7 mg/dL (0.55-1.02); Calcium 8.8 mg/dL (8.5-10.1); Chloride 96 mmol/L (98-107); Glucose 96 mg/dL (74-106); Potassium 3.8 mmol/L (3.5-5.1); Sodium 133 mmol/L (136-145); TSH 0.56 uIU/mL (0.36-3.74); Total Protein 7.2 g/dL (6.4-8.2)
[2021-02-28 13:41] LABS: FREE T4 1.03 ng/dL (0.76-1.46)
[2021-03-21 08:40] LABS: Abs Immature Grans 0.02 10^3/uL (0.0-0.06); Absolute Basophil Count 0.02 10^3/uL (0.0-0.2); Absolute Eosinophil Count 0.16 10^3/uL (0.0-0.7); Absolute Lymphocyte Count 0.83 10^3/uL (1.2-3.4); Absolute Monocyte Count 0.61 10^3/uL (0.1-0.8); Absolute Neutrophil Count 2.72 10^3/uL (1.2-6.7); Basophils % 0.5; Eosinophils % 3.7; HCT 38.3 % (36.0-46.0); HGB 12.3 g/dL (11.2-15.7); Immature Grans % 0.5; MCH 34.5 pg (27.0-33.0); MCHC 32.1 % (32.0-36.0); MCV 107.3 fL (80-95); MPV 9.2 fL (8.0-11.0); Neutrophils % 62.3; Nucleated RBC 0 %; Platelet Count 438 10^3/uL (130-400); RBC 3.57 10^6/uL (3.93-5.22); RDW 14.4 % (11.7-14.6); RDW-SD 57.1 fL; WBC 4.36 10^3/uL (4.4-10.8)
[2021-03-21 09:23] LABS: Macrocytosis 1+; Polychromasia Present
[2021-03-21 09:24] LABS: Poikilocytes 1+
[2021-03-21 09:27] LABS: ALT 19 U/L (14-59); AST 24 U/L (15-37); Albumin 3.4 g/dL (3.4-5.0); Alkaline Phosphatase 57 U/L (46-116); Anion Gap 8.1 mmol/L (3-11); BUN 6 mg/dL (7-18); Bilirubin, Total 0.4 mg/dL (0.2-1.0); CO2 28.9 mmol/L (21.0-32.0); CREATININE 0.8 mg/dL (0.55-1.02); Calcium 8.9 mg/dL (8.5-10.1); Chloride 99 mmol/L (98-107); FREE T4 1.03 ng/dL (0.76-1.46); Glucose 107 mg/dL (74-106); Magnesium 2.1 mg/dL (1.8-2.4); Potassium 3.7 mmol/L (3.5-5.1); Sodium 136 mmol/L (136-145); TSH 2.12 uIU/mL (0.36-3.74); Total Protein 7.5 g/dL (6.4-8.2)
== END 2021-03-21 23:59 | disposition home or self-care (01) ==
LOC: INF 01:15
PROVIDERS: PCP Family Medicine; Visit Provider Internal Medicine Medical Oncology
DX: C34.31 Malignant neoplasm of lower lobe, right bronchus or lung (principal); Z79.899 Other long term (current) drug therapy
CPT/HCPCS: 36415; 80053; 83735; 84439; 84443; 85025

== ENCOUNTER 2021-03-31 02:16 | Outpatient (CLI) | payer BC, SELFPAY ==
[2021-03-31] MEDS: Omnipaque 350 MG/ML 50 ML BTL IJ (12:49)
[2021-03-31] MEDS: Breeza Beverage 473 ML BTL 946 ML PO (12:50)
--- NOTE | 2021-03-31 14:15 | DI.CT_ITS ---
Exam(s) CT CHEST/ABD/PEL W EXAM: CT CHEST/ABD/PEL W CLINICAL HISTORY: LUNG CANCER C34.31 BONE CANCER C79.51 RESTAGING. TECHNIQUE: Imaging Protocol: Axial computed tomography images with coronal and sagittal reformatted images were created and reviewed CONTRAST MATERIAL: Intravenous: Omnipaque 350 Contrast volume:100 ml Oral: None COMPARISON: CR XR CHEST 1V IN DI DEPT from 10/20/[address] CHEST/ABD/PEL W from 12/28/2020 FINDINGS: CHEST: LUNGS: The size of the right lower lobe infrahilar mass has very minimally decreased when compared to 12/28/2020. No associated pleural effusion. No new additional right lung findings seen at this lyn e. No new significant left lung findings nor left pleural effusion. No new findings in the trachea and mainstem bronchi. MEDIASTINUM: Right hilum appears stable. No subcarinal adenopathy. Left hilum unremarkable. No paratr acheal adenopathy nor adenopathy in the anterior mediastinal fat. CARDIAC: Heart size upper normal. No pericardial effusion. Caliber thoracic aorta within normal limit s. Scratch OSSEOUS: No lesions evident in the thoracic vertebral bodies nor in the rib cages.. ABDOMEN: There is no ascites. LIVER: There is a benign appearing subcapsular hypodensity in the anterior which is unchanged from pr ior study and measures 6 x 5 millimeters and is probably benign cyst. Another smaller hypodensity pos teriorly in the left hepatic lobe is probably another small cyst and there is a benign appearing subc apsular hypodensity in the lower aspect of the right hepatic lobe which is also unchanged and is eith er small cyst or hemangioma. These are unlikely to represent metastatic lesions. There is no dilatati on of intrahepatic ducts. GALLBLADDER/BILIARY: No obvious gallbladder pathology. CBD is not dilated. PANCREAS: No evidence of pancreatic mass nor dilatation of the pancreatic duct. SPLEEN: Spleen is not enlarged. There are no intrasplenic lesions. Splenic and portal veins are bowles nt. ADRENALS: There are no significant adrenal masses. KIDNEYS: No calculi nor hydronephrosis. No solid renal masses. No cysts evident. ABDOMINAL AORTA: Abdominal aorta is not enlarged. LYMPH NODES: There is no retroperitoneal nor paraaortic adenopathy. ABDOMINAL WALL: No evidence of significant anterior abdominal wall nor inguinal hernia. GI: There is no evidence of bowel obstruction. PELVIS: LYMPH NODES: There is no intrapelvic nor inguinal adenopathy. GI: No evidence of appendicitis.No evidence of sigmoid diverticulitis. URINARY BLADDER: Bladder is partially obscured by beam hardening artifact from right hip prosthesis. REPRODUCTIVE: No obvious abnormalities. No free fluid in the pelvis. OSSEOUS: Appearance of the sclerotic inferior half of the L3 vertebral body and Schmorl's node invagi nation of the inferior endplate or lesion basically unchanged. There is no height loss of the L3 vert ebral body. The previously described sclerotic densities in the S1 aspect of the sacrum, center and slightly righ t of center are unchanged. No additional sclerotic bone lesions evident in pelvis. IMPRESSION: 1. Relatively stable exam when compared to the prior CT scan of 12/28/2020. 2. The size of the right lower lobe lung mass has minimally decreased. No new additional lung masses, nodules, or pleural effusions. There is also no increasing intrathoracic lymphadenopathy at this lyn e. 3. Benign-appearing small cysts in the liver again noted. No obvious new metastatic lesions in the li daniel. No ascites. There is a paucity of intraperitoneal fat making evaluation somewhat difficult but t here is no evidence of obvious mesenteric masses, ascites, bowel obstruction, free air, nor abscess. 4. Stable appearance of the previously described sclerotic findings in L3 and S1. Also stable appeara nce of very small sclerotic density in the anterior aspect of T10 vertebral body. No new bone lesions evident. RADIATION DOSE DELIVERED: 546.6mGy.cm Total DLP DATA REPOSITORY: All CT scans at this facility are submitted to the National Radiology Data Registry (NRDR) Dose Index Registry (DIR) with the [employer] (ACR). RADIATION OPTIMIZATION: All CT scans at this facility use at least one of these dose optimization te chniques: automated exposure control; mA and/or kV adjustment per patient size (includes targeted exa ms where dose is matched to clinical indication); or iterative reconstruction.
[2021-03-31] MEDS: Omnipaque 350 MG/ML 100 ML BTL IJ (14:26)
== END 2021-03-31 02:36 ==
PROVIDERS: PCP Family Medicine; Visit Provider Internal Medicine Medical Oncology
DX: C34.31 Malignant neoplasm of lower lobe, right bronchus or lung (principal); C79.51 Secondary malignant neoplasm of bone; K76.89 Other specified diseases of liver
CPT/HCPCS: 74177; 71260; J3490; Q9967

== ENCOUNTER 2021-04-13 00:56 | Outpatient (RCR) | payer BC, SELFPAY ==
[2021-04-13 08:32] LABS: Abs Immature Grans 0.01 10^3/uL (0.0-0.06); Absolute Basophil Count 0.03 10^3/uL (0.0-0.2); Absolute Eosinophil Count 0.14 10^3/uL (0.0-0.7); Absolute Lymphocyte Count 0.65 10^3/uL (1.2-3.4); Absolute Neutrophil Count 2.37 10^3/uL (1.2-6.7); Basophils % 0.8; Eosinophils % 3.7; HCT 40.4 % (36.0-46.0); HGB 12.8 g/dL (11.2-15.7); Immature Grans % 0.3; Lymphocytes % 17.1; MCH 34.3 pg (27.0-33.0); MCHC 31.7 % (32.0-36.0); MCV 108.3 fL (80-95); MPV 9.3 fL (8.0-11.0); Monocytes % 15.8; Neutrophils % 62.3; Nucleated RBC 0 %; Platelet Count 307 10^3/uL (130-400); RBC 3.73 10^6/uL (3.93-5.22); RDW 13.9 % (11.7-14.6); RDW-SD 56.5 fL
[2021-04-13 09:10] LABS: ALT 23 U/L (14-59); AST 32 U/L (15-37); Albumin 3.6 g/dL (3.4-5.0); Alkaline Phosphatase 55 U/L (46-116); Anion Gap 7.3 mmol/L (3-11); BUN 9 mg/dL (7-18); Bilirubin, Total 0.6 mg/dL (0.2-1.0); CO2 30.7 mmol/L (21.0-32.0); CREATININE 0.8 mg/dL (0.55-1.02); Calcium 9.2 mg/dL (8.5-10.1); Chloride 100 mmol/L (98-107); FREE T4 1.08 ng/dL (0.76-1.46); Glucose 94 mg/dL (74-106); Magnesium 1.9 mg/dL (1.8-2.4); Potassium 3.8 mmol/L (3.5-5.1); Sodium 138 mmol/L (136-145); TSH 1.22 uIU/mL (0.36-3.74); Total Protein 7.8 g/dL (6.4-8.2)
== END 2021-04-18 23:59 | disposition home or self-care (01) ==
LOC: INF 00:56
PROVIDERS: PCP Family Medicine; Visit Provider Internal Medicine Medical Oncology
DX: Z45.2 Encounter for adjustment and management of vascular access device (principal); C34.31 Malignant neoplasm of lower lobe, right bronchus or lung; Z79.899 Other long term (current) drug therapy
CPT/HCPCS: 36415; 80053; 83735; 84439; 84443; 85025

== ENCOUNTER 2021-04-20 01:04 | Outpatient (CLI) | payer BC, SELFPAY ==
--- NOTE | 2021-04-20 13:42 | DI.RAD_ITS ---
Exam(s) XR FEMUR RT XR HIP RT COMPLETE AP PELVIS EXAM: XR HIP RT COMPLETE AP PELVIS CLINICAL HISTORY: INCREASING RT HIP PAIN S/P THR, Z96.641; CLOSED FX OF RT HIP, S72.001A TECHNIQUE: COMPARISON: CR XR FEMUR RT from 10/20/2020 CR XR PELVIS AP from 10/20/2020 CR XR FEMUR RT from 04/20/2021 FINDINGS: Two views of the hip and pelvis and four views of femur were obtained. There is a femoral head and n efren prosthesisIn position with long femoral component and cerclage wires. This was placed due to luis a arent pathological fracture of the proximal femur, patient reportedly has a history of lung carcinoma . The components appear well seated, there is generalized patchy demineralization of the distal aspect of the femur without evidence of a focal lesion. . IMPRESSION: RADIATION DOSE DELIVERED: Total DLP
== END 2021-04-20 01:24 ==
PROVIDERS: PCP Family Medicine; Visit Provider Orthopaedic Surgery
DX: S72.001A Fracture of unspecified part of neck of right femur, initial encounter for closed fracture (principal); Z96.641 Presence of right artificial hip joint
CPT/HCPCS: 73552; 73502

== ENCOUNTER 2021-05-16 02:25 | Outpatient (RCR) | payer BC, SELFPAY ==
[2021-05-16 09:37] LABS: Abs Immature Grans 0.01 10^3/uL (0.0-0.06); Absolute Basophil Count 0.05 10^3/uL (0.0-0.2); Absolute Eosinophil Count 0.09 10^3/uL (0.0-0.7); Absolute Lymphocyte Count 0.58 10^3/uL (1.2-3.4); Absolute Monocyte Count 0.91 10^3/uL (0.1-0.8); Absolute Neutrophil Count 2.82 10^3/uL (1.2-6.7); Basophils % 1.1; HCT 39.8 % (36.0-46.0); HGB 12.9 g/dL (11.2-15.7); Immature Grans % 0.2; MCH 33.4 pg (27.0-33.0); MCHC 32.4 % (32.0-36.0); MCV 103.1 fL (80-95); MPV 9.7 fL (8.0-11.0); Monocytes % 20.4; Neutrophils % 63.3; Nucleated RBC 0 %; Platelet Count 228 10^3/uL (130-400); RBC 3.86 10^6/uL (3.93-5.22); RDW 13.3 % (11.7-14.6); RDW-SD 50.8 fL; WBC 4.46 10^3/uL (4.4-10.8)
[2021-05-16 10:01] LABS: ALT 15 U/L (14-59); AST 21 U/L (15-37); Albumin 3.4 g/dL (3.4-5.0); Alkaline Phosphatase 58 U/L (46-116); Anion Gap 6.2 mmol/L (3-11); BUN 7 mg/dL (7-18); Bilirubin, Total 0.4 mg/dL (0.2-1.0); CO2 30.8 mmol/L (21.0-32.0); CREATININE 0.7 mg/dL (0.55-1.02); Calcium 9.1 mg/dL (8.5-10.1); Chloride 100 mmol/L (98-107); FREE T4 1.11 ng/dL (0.76-1.46); Glucose 111 mg/dL (74-106); Magnesium 1.7 mg/dL (1.8-2.4); Potassium 3.9 mmol/L (3.5-5.1); Sodium 137 mmol/L (136-145); TSH 0.82 uIU/mL (0.36-3.74); Total Protein 7.6 g/dL (6.4-8.2)
== END 2021-05-19 23:59 | disposition home or self-care (01) ==
LOC: INF 02:25
PROVIDERS: PCP Family Medicine; Visit Provider Internal Medicine Medical Oncology
DX: C34.31 Malignant neoplasm of lower lobe, right bronchus or lung (principal); Z79.899 Other long term (current) drug therapy
CPT/HCPCS: 36415; 80053; 83735; 84439; 84443; 85025

== ENCOUNTER 2021-06-06 02:25 | Outpatient (RCR) | payer BC, SELFPAY ==
[2021-06-06 14:05] LABS: Abs Immature Grans 0.01 10^3/uL (0.0-0.06); Absolute Basophil Count 0.03 10^3/uL (0.0-0.2); Absolute Eosinophil Count 0.03 10^3/uL (0.0-0.7); Absolute Lymphocyte Count 0.67 10^3/uL (1.2-3.4); Absolute Monocyte Count 0.82 10^3/uL (0.1-0.8); Absolute Neutrophil Count 4.65 10^3/uL (1.2-6.7); Basophils % 0.5; Eosinophils % 0.5; HCT 39.5 % (36.0-46.0); HGB 12.7 g/dL (11.2-15.7); Immature Grans % 0.2; Lymphocytes % 10.8; MCH 33.2 pg (27.0-33.0); MCHC 32.2 % (32.0-36.0); MCV 103.4 fL (80-95); MPV 9.1 fL (8.0-11.0); Monocytes % 13.2; Neutrophils % 74.8; RBC 3.82 10^6/uL (3.93-5.22); RDW 13.7 % (11.7-14.6); RDW-SD 52.6 fL; WBC 6.21 10^3/uL (4.4-10.8)
[2021-06-06 14:07] LABS: Platelet Count 440 10^3/uL (130-400)
[2021-06-06 14:30] LABS: ALT 26 U/L (14-59); AST 27 U/L (15-37); Albumin 3.6 g/dL (3.4-5.0); Alkaline Phosphatase 54 U/L (46-116); Anion Gap 5.9 mmol/L (3-11); BUN 14 mg/dL (7-18); Bilirubin, Total 0.4 mg/dL (0.2-1.0); CO2 30.1 mmol/L (21.0-32.0); CREATININE 0.9 mg/dL (0.55-1.02); Calcium 9.4 mg/dL (8.5-10.1); Chloride 98 mmol/L (98-107); FREE T4 1.13 ng/dL (0.76-1.46); Glucose 101 mg/dL (74-106); Magnesium 1.8 mg/dL (1.8-2.4); Sodium 134 mmol/L (136-145); TSH 1.26 uIU/mL (0.36-3.74); Total Protein 7.7 g/dL (6.4-8.2)
== END 2021-06-18 23:59 | disposition home or self-care (01) ==
LOC: INF 02:25
PROVIDERS: PCP Family Medicine; Visit Provider Internal Medicine Medical Oncology
DX: C34.31 Malignant neoplasm of lower lobe, right bronchus or lung (principal); Z79.899 Other long term (current) drug therapy
CPT/HCPCS: 36415; 80053; 83735; 84439; 84443; 85025

== ENCOUNTER 2021-06-27 00:59 | Outpatient (RCR) | payer MEDICARE, SELFPAY ==
[2021-06-27 09:10] LABS: Abs Immature Grans 0.02 10^3/uL (0.0-0.06); Absolute Basophil Count 0.05 10^3/uL (0.0-0.2); Absolute Eosinophil Count 0.14 10^3/uL (0.0-0.7); Absolute Lymphocyte Count 0.78 10^3/uL (1.2-3.4); Absolute Monocyte Count 0.73 10^3/uL (0.1-0.8); Absolute Neutrophil Count 3.96 10^3/uL (1.2-6.7); Basophils % 0.9; Eosinophils % 2.5; HCT 39.5 % (36.0-46.0); HGB 12.4 g/dL (11.2-15.7); Immature Grans % 0.4; Lymphocytes % 13.7; MCH 33.4 pg (27.0-33.0); MCHC 31.4 % (32.0-36.0); MCV 107 fL (80-95); Monocytes % 12.9; Neutrophils % 69.6; Platelet Count 344 10^3/uL (130-400); RBC 3.71 10^6/uL (3.93-5.22); RDW 14.5 % (11.7-14.6); RDW-SD 56.5 fL; WBC 5.68 10^3/uL (4.4-10.8)
[2021-06-27 09:34] LABS: ALT 32 U/L (14-59); AST 29 U/L (15-37); Albumin 3.3 g/dL (3.4-5.0); Alkaline Phosphatase 58 U/L (46-116); Anion Gap 4.4 mmol/L (3-11); BUN 16 mg/dL (7-18); Bilirubin, Total 0.4 mg/dL (0.2-1.0); CO2 32.6 mmol/L (21.0-32.0); CREATININE 0.9 mg/dL (0.55-1.02); Calcium 9.3 mg/dL (8.5-10.1); Chloride 103 mmol/L (98-107); Glucose 106 mg/dL (74-106); Magnesium 1.7 mg/dL (1.8-2.4); Potassium 4.2 mmol/L (3.5-5.1); Sodium 140 mmol/L (136-145); TSH 1.14 uIU/mL (0.36-3.74); Total Protein 7.4 g/dL (6.4-8.2)
== END 2021-07-19 23:59 | disposition home or self-care (01) ==
LOC: INF 00:59
PROVIDERS: PCP Family Medicine; Visit Provider Internal Medicine Medical Oncology
DX: C34.31 Malignant neoplasm of lower lobe, right bronchus or lung (principal); Z79.899 Other long term (current) drug therapy
CPT/HCPCS: 36415; 80053; 83735; 84439; 84443; 85025

== ENCOUNTER 2021-08-01 13:14 | Outpatient (CLI) | payer MEDICARE, SELFPAY ==
[2021-08-01 10:41] LABS: Abs Immature Grans 0.01 10^3/uL (0.0-0.06); Absolute Basophil Count 0.04 10^3/uL (0.0-0.2); Absolute Eosinophil Count 0.09 10^3/uL (0.0-0.7); Absolute Lymphocyte Count 0.75 10^3/uL (1.2-3.4); Absolute Monocyte Count 0.68 10^3/uL (0.1-0.8); Absolute Neutrophil Count 3.77 10^3/uL (1.2-6.7); Basophils % 0.7; Eosinophils % 1.7; HCT 41.2 % (36.0-46.0); HGB 13.3 g/dL (11.2-15.7); Immature Grans % 0.2; MCH 33.6 pg (27.0-33.0); MCHC 32.3 % (32.0-36.0); MCV 104 fL (80-95); MPV 9.5 fL (8.0-11.0); Monocytes % 12.7; Neutrophils % 70.7; Platelet Count 192 10^3/uL (130-400); RBC 3.96 10^6/uL (3.93-5.22); RDW 13.8 % (11.7-14.6); RDW-SD 52.9 fL; WBC 5.34 10^3/uL (4.4-10.8)
[2021-08-01 11:15] LABS: ALT 20 U/L (14-59); AST 23 U/L (15-37); Albumin 3.6 g/dL (3.4-5.0); Alkaline Phosphatase 53 U/L (46-116); Anion Gap 7.9 mmol/L (3-11); BUN 13 mg/dL (7-18); Bilirubin, Total 0.5 mg/dL (0.2-1.0); CO2 29.1 mmol/L (21.0-32.0); CREATININE 0.9 mg/dL (0.55-1.02); Calcium 8.8 mg/dL (8.5-10.1); Chloride 101 mmol/L (98-107); FREE T4 1.05 ng/dL (0.76-1.46); Glucose 101 mg/dL (74-106); Magnesium 1.9 mg/dL (1.8-2.4); Potassium 3.7 mmol/L (3.5-5.1); Sodium 138 mmol/L (136-145); TSH 1.01 uIU/mL (0.36-3.74); Total Protein 7.7 g/dL (6.4-8.2)
== END 2021-08-01 13:15 | disposition home or self-care (01) ==
LOC: LBO 13:15
PROVIDERS: PCP Family Medicine; Visit Provider Internal Medicine Medical Oncology
DX: C34.31 Malignant neoplasm of lower lobe, right bronchus or lung (principal); Z79.899 Other long term (current) drug therapy
CPT/HCPCS: 36415; 80053; 83735; 84439; 84443; 85025

== ENCOUNTER 2021-08-10 01:30 | Outpatient (CLI) | payer MEDICARE, BC, SELFPAY ==
[2021-08-10] MEDS: Normal Saline Flush 10 ML SYR IVP (13:08)
--- NOTE | 2021-08-10 14:31 | DI.MRI_ITS ---
Exam(s) MR BRAIN WO/W EXAM: MR BRAIN WO/W CLINICAL HISTORY: Memory problems, lung Ca,? mets,r41.3 TECHNIQUE: Multiplanar multisequence MRI of the brain was performed. CONTRAST MATERIAL: IV Contrast: 9 mL of Dotarem contrast administered. COMPARISON: No exams were available for comparison FINDINGS: VENTRICLES AND EXTRA AXIAL SPACES: Normal in size and morphology for the patient's age. HEMORRHAGE: None. CEREBRAL PARENCHYMA: No focus of restricted diffusion to suggest acute infarct. There is a 1.6 AP by 1.6 transverse by 2.0 craniocaudad heterogeneously enhancing mass in the left frontal lobe. The mass has both cystic and solid components. There is a large amount of surrounding edema effacing the adj acent sulci and the left lateral ventricle. There is 5.6 mm of rightward shift of the midline which results. No other enhancing lesions are identified. There are few scattered areas of hyperintense s ignal in the white matter on the T2 and FLAIR images likely reflecting small vessel ischemic disease. MIDLINE SHIFT: None. BRAINSTEM/CEREBELLUM: Normal. CALVARIUM: Normal. ENHANCEMENT: No suspicious enhancement identified. VISUALIZED PARANASAL SINUSES/MASTOIDS: Clear. MAKAH OF PRABHAKAR: Normal flow void. PITUITARY GLAND: Unremarkable. OTHER FINDINGS: IMPRESSION: 1.6 x 1.6 x 2 cm heterogeneously enhancing mass in the left frontal lobe consistent with metastatic d isease. Primary intracranial neoplasm cannot be excluded. There is a large amount of surrounding ed salty which causes effacement of the adjacent sulci and the left lateral ventricle. There is 5.6 mm of rightward shift of the midline which results. DATA REPOSITORY:
== END 2021-08-10 01:50 ==
PROVIDERS: PCP Family Medicine; Visit Provider Family Medicine
DX: G93.6 Cerebral edema (principal); G93.89 Other specified disorders of brain
CPT/HCPCS: 70553; 71250

== ENCOUNTER → 2021-08-10 01:30 | Outpatient (CLI) | payer MEDICARE, SELFPAY ==
--- NOTE | 2021-08-10 13:52 | DI.CT_ITS ---
Exam(s) CT CHEST WO EXAM: CT CHEST WO CLINICAL HISTORY: LUNG CA, C34.31,SECONDARY BONE NEOPLASM,C79.51,RESTAGING,ON IMMUNOTHERAPY. TECHNIQUE: Imaging protocol: Axial computed tomography images were obtained and coronal and sagittal reformatted images were created and reviewed. COMPARISON: CT CT CHEST/ABD/PEL W from 09/24/[address] CHEST/ABD/PEL W from 03/31/2021 FINDINGS: The examination is limited due to patient motion artifact. Tracheobronchial tree: Patent where visualized. Pulmonary parenchyma: There has been no significant change in size of the mass in the right lower lob e. Using similar measuring techniques, the mass measures 1.4 x 2.8 x 3.3 cm. No new infiltrates are seen. Marked emphysematous changes are present in the lungs. Mediastinum and Yeni: There has been no change in the appearance of the mediastinum. The esophagus i s unremarkable. Thyroid gland: Unremarkable. Pleura: No effusion or pneumothorax. Heart: The heart is not dilated. No coronary artery calcifications are seen. No pericardial effusion. Aorta: Thoracic aorta non-dilated. Atherosclerosis. Upper abdomen: Unremarkable. Lymph nodes: Within normal limits. Soft tissues: Unremarkable. Bones:Within normal limits for the patient's age. There has been no change in the sclerotic focus in the L3 vertebral body. IMPRESSION: No significant change in size of the right lower lobe pulmonary mass since 03/31/2021. RADIATION DOSE DELIVERED: 321.24mGy.cm Total DLP 321.24mGy.cm Total DLP DATA REPOSITORY: All CT scans at this facility are submitted to the National Radiology Data Registry (NRDR) Dose Index Registry (DIR) with the [employer] (ACR). RADIATION OPTIMIZATION: All CT scans at this facility use at least one of these dose optimization te chniques: automated exposure control; mA and/or kV adjustment per patient size (includes targeted exa ms where dose is matched to clinical indication); or iterative reconstruction.
== END ==
PROVIDERS: PCP Family Medicine; Visit Provider Internal Medicine Medical Oncology
DX: R91.8 Other nonspecific abnormal finding of lung field (principal); C34.91 Malignant neoplasm of unspecified part of right bronchus or lung; C79.51 Secondary malignant neoplasm of bone
CPT/HCPCS: 71250

== ENCOUNTER 2021-09-11 16:02 | Emergency (ER) | payer MEDICARE, BC, SELFPAY ==
--- NOTE | 2021-09-11 16:00 | RT.EKG_ITS ---
APPROVED REPORT Exam: Resting ECG Reason for Exam: chest pain Patient Location: E HR:97 bpm ECG Measurements Heart Rate 97 AXIS AL 106 P 79 QRSd 77 QRS -5 QT 318 T 39 QTc 404 Conclusion Sinus rhythm...normal P axis, V-rate 60- 99 Low voltage, extremity leads...all extremity leads <0.5mV Anteroseptal infarct, old...Q >40mS, V1-V2 sinus rhythm, normal intervals, flattened T waves III aVF
[2021-09-11 16:10] VITALS: BP 167/95; PULSE 103; RESP 20; TEMP 36.9; O2SAT 94
[2021-09-11 16:30] VITALS: RESP 20
--- NOTE | 2021-09-11 16:45 | ED.GENADUL_ITS ---
Discharge Plan Disposition Patient Disposition: HOME Condition: Improving Discharge Details Chief Complaint: GenMedical Clinical Impression: Palpitations Primary Care Provider: Ok Garcia ED Provider: Kris Donaldson Home Meds and New Rx's Prescriptions: No Action multivitamin [Daily Multi-Vitamin] Tablet 1 tab PO DAILY omeprazole 20 mg capsule,delayed release(DR/EC) 20 mg PO DAILY ondansetron 4 mg tablet,disintegrating 4 mg PO Q8H PRN (Reason: nausea and vomiting) Qty: 30 3RF folic acid 1 mg tablet 1 mg PO DAILY cholecalciferol (vitamin D3) 50 mcg/drop (2, 000 unit/drop) drops 50 mcg PO DAILY prochlorperazine maleate 10 mg tablet 10 mg PO Q6H PRN polyethylene glycol 3350 [Miralax] 17 gram/dose powder 17 g PO DAILY cetirizine [All Day Allergy (cetirizine)] 10 mg tablet 10 mg PO DAILY PRN sertraline [Zoloft] 25 mg tablet 25 mg PO DAILY Qty: 30 3RF oxycodone 5 mg tablet 5 - 10 mg PO QID MDD 40 mg PRN (Reason: pain) Qty: 60 0RF Rx Instructions: For cancer related pain lorazepam 0.5 mg tablet 0.5 - 1 mg PO TID PRN (Reason: anxiety) Qty: 20 0RF gabapentin 100 mg capsule 200 - 300 mg PO TID Qty: 300 3RF Rx Instructions: for cancer related pain dexamethasone 2 mg tablet 2 mg PO BID Qty: 60 0RF Rx Instructions: Per oncology calcium carbonate [Calcium 600] 600 mg calcium (1,500 mg) tablet 600 mg PO DAILY naloxone [Narcan] 4 mg/actuation spray,non-aerosol 1 spray intranasal Q2-3M PRN Rx Instructions: spray 1 dose into ONE nostril; alternate nostrils w each dose until help arrives dexamethasone 4 mg tablet See Rx Instructions PO .COMPLEX Rx Instructions: 2 tabs 2 times daily for 5 days, then 2 tabs daily for 5 days, then 1 tab daily for 10 days orally; celecoxib [Celebrex] 200 mg Capsule 200 mg PO BID Discharge Instructions Instructions: Heart Palpitations (ED) Additional Instructions: Please follow-up with your primary care physician. Please return to the emergency department he develop worsening symptoms such as chest pain shortness of breath nausea fevers weakness numbness or any other abnormal symptoms. Medical Decision Making 66-year-old female history of metastatic lung cancer to the brain, recent craniotomy with tumor removal presents with irregular heartbeat noted by home health nurse, patient is asymptomatic denies chest pain denies sensation of irregular heartbeat no shortness of breath cough fevers chills nausea vomiting or headache, patient is alert and oriented neurologically intact. Well-healing craniotomy scar. Hemodynamically stable sinus rhythm on monitor and EKG. Consider asymptomatic PACs or PVCs. Low suspicion for A. fib or a flutter given EKG. Low suspicion for ACS or PE. Peripheral edema likely related to recent hospitalization and postop state. Low suspicion for DVT. Given complex medical history and recent hospitalization will obtain basic labs to assess electrolytes blood levels kidney function liver function. Will obtain a troponin despite not having any chest pain. Likely discharge home with close follow-up pending normal results. 17: 12 patient asking to go home. She feels completely asymptomatic and does not want to be in the hospital. She has no chest pain shortness of breath fevers chills neurologic symptoms or abnormal vital signs. Patient will follow up with her primary care physician and return to the emergency department if she has any symptomatology that develops in the interim. HPI General Date/Time Provider Initiated Documentation: 09/11/21 16:33 . HPI Narrative: 66-year-old female history of metastatic lung cancer to the brain, recent craniotomy with tumor removal on Sunday presents referred in by home health aide who noted that she had an irregular heartbeat on examination today. Patient denies chest pain shortness of breath nausea vomiting headache fevers chills or other abnormal symptoms. Feels asymptomatic at this time. Related Data Home Medications Medication Instructions Recorded Confirmed multivitamin (Daily Multi-Vitamin 1 tab PO DAILY 03/11/19 09/11/21 tablet) calcium carbonate 600 mg calcium 600 mg PO DAILY 11/15/20 09/11/21 (1,500 mg) tablet (Calcium) cholecalciferol (vitamin D3) 50 50 mcg PO DAILY 01/20/21 09/11/21 mcg/drop (2,000 unit/drop) oral drops folic acid 1 mg tablet 1 mg PO DAILY 01/20/21 09/11/21 omeprazole 20 mg capsule,delayed 20 mg PO DAILY 01/20/21 09/11/21 release ondansetron 4 mg disintegrating 4 mg PO Q8H PRN nausea and 01/20/21 09/11/21 tablet vomiting #30 tabs prochlorperazine maleate 10 mg 10 mg PO Q6H PRN 01/20/21 09/11/21 tablet cetirizine 10 mg tablet (All Day 10 mg PO DAILY PRN 03/11/21 09/11/21 Allergy (cetirizine)) polyethylene glycol 3350 17 17 g PO DAILY 03/11/21 09/11/21 gram/dose oral powder (Miralax) naloxone 4 mg/actuation nasal 1 spray intranasal Q2-3M PRN 06/08/21 09/11/21 spray (Narcan) dexamethasone 4 mg tablet See Rx Instructions PO .COMPLEX 08/17/21 09/11/21 dexamethasone 2 mg tablet 2 mg PO BID #60 tabs 08/26/21 09/11/21 gabapentin 100 mg capsule 200 - 300 mg PO TID #300 caps 08/26/21 09/11/21 lorazepam 0.5 mg tablet 0.5 - 1 mg PO TID PRN anxiety #20 08/26/21 09/11/21 tabs oxycodone 5 mg tablet 5 - 10 mg PO QID PRN pain #60 tabs 08/26/21 09/11/21 sertraline 25 mg tablet (Zoloft) 25 mg PO DAILY #30 tabs 08/26/21 09/11/21 celecoxib 200 mg capsule (Celebrex) 200 mg PO BID 09/11/21 09/11/21 Previous Rx's Medication Instructions Recorded ondansetron 4 mg disintegrating 4 mg PO Q8H PRN nausea and 01/20/21 tablet vomiting #30 tabs dexamethasone 2 mg tablet 2 mg PO BID #60 tabs 08/26/21 gabapentin 100 mg capsule 200 - 300 mg PO TID #300 caps 08/26/21 lorazepam 0.5 mg tablet 0.5 - 1 mg PO TID PRN anxiety #20 08/26/21 tabs oxycodone 5 mg tablet 5 - 10 mg PO QID PRN pain #60 tabs 08/26/21 sertraline 25 mg tablet (Zoloft) 25 mg PO DAILY #30 tabs 08/26/21 Allergies Allergy/AdvReac Type Severity Reaction Status Date / Time No Known Allergies Allergy Verified 09/11/21 16:16 General Stated Complaint: GenMedical KAREN: 3 Review of Systems Narrative: Review of Systems Constitutional: negative Eyes: negative ENT: negative Cardiovascular: Irregular heart beat Respiratory: negative Gastrointestinal: negative : negative Musculoskeletal: negative Skin: negative Neurologic: negative Psych: negative PFSH All Active Problems (Updated 09/11/21 @ 17:14 by Kris Donaldson MD) Palpitations (Acute) Brain metastases (Acute 08/17/21) Bilateral lower extremity edema (Acute) Palliative care patient (Acute) Hyponatremia (Acute) Memory loss due to medical condition (Acute) Secondary malignant neoplasm of bone (Acute) Fall (Acute 10/20/20) Lung cancer, lower lobe (Acute) non-small cell,Stage IV Lytic bone lesion of hip (Acute) Right thigh pain (Acute) Surgical History S/[place]miarthroplasty (10/21/20[place] [facility] [place] Family History Mother Hypertension Heart disease Maternal Grandmother Stroke Father Myeloma Paternal Grandmother Cancer ovarian Social History Smoking/Tobacco Use Status: Current every day Tobacco Type: cigarettes and e- cigarettes Tobacco: How many years used: 30 Smoking risk assessment performed?: Yes Alcohol Intake: current Alcohol Intake frequency: 0-2 drinks per day Alcohol type: wine Drug use: Rarely Substance use type: does not use Adopted: No Caregiver/Support person: No Household members: children and other Details: Moved from [place] 2019 helps daughter on her farm Number of Children: 3 number of grandchildren: 9 Communication Needs: None Education Level: master's degree Do you need help understanding health information?: Rarely 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 Pets and animals: Yes (1) Pets and animals: dog(s) Sexually active: No Do you think of yourself as: straight/heterosexual Current gender identity: female What is your relationship status?: How often do you talk on the phone with friends or family?: once per week Do you belong to any clubs or organized social groups?: no Panel score (0-1 are the most socially isolated patients): 0 What type of physical activity do you participate in: regular exercise Duration: 45-60 minutes/day Frequency: 5-6 times per week Lana/Yarsani: Orthodox Special lana needs: No Seatbelt use: always Helmet use: Yes Helmet use: always Drive intox or ride w/intox driver education instructor: No Do you feel safe at home: Yes Do you feel safe in your relationship?: Yes Female Reproductive History Menstrual Menopause type: natural History History 3 Para 3 Hx # Term Pregnancies Multiple births Hx # Pregnancies Ectopic pregnancies AB induced Hx Number of Living Children AB spontaneous Exam Narrative Exam Narrative: Physical Examination General: alert, awake, cooperative, resting comfortably, no acute distress HEENT: normocephalic, well-healing left craniotomy scarclean dry intact no evidence of dehiscence no evidence of infection; PERRL, EOM intact, conjunctiva normal; no nasal discharge; moist mucous membranes, oral and pharyngeal mucosa normal, tolerating secretions Neck: supple, trachea midline; full ROM Chest: normal to inspection Respiratory: normal respiratory effort, speaking in full sentences, clear to auscultation, no wheezing, rales or rhonchi Cardiac: regular rate, regular rhythm, S1S2 intact, no murmurs rubs or gallops GI: abdomen soft, non-tender, non-distended; no palpable mass or hepatosplenomegaly Skin: no lesions, rashes or trauma appreciated Neuro: AAOx3, normal speech, moving all extremities cranial nerves intact;, occasionally forgetful however no aphasia or dysarthria Extremities: Bilateral edema to level of ankles Psych: Appropriate mood and affect Course Vital Signs Vital signs: Vital Signs Temperature 36.9 C 09/11/21 16:10 Pulse 103 H 09/11/21 16:10 Respiratory Rate 20 09/11/21 16:10 Blood Pressure 167/95 H 09/11/21 16:10 Pulse Oximetry 94 09/11/21 16:10 Temperature 36.9 C 09/11/21 16:10 Temperature Source Temporal Artery Scan 09/11/21 16:10 Pulse 103 H 09/11/21 16:10 Respiratory Rate 20 09/11/21 16:30 Respiratory Effort Non-Labored 09/11/21 16:30 Respiratory Depth Normal 09/11/21 16:30 Respiratory Pattern Normal 09/11/21 16:30 Blood Pressure 167/95 H 09/11/21 16:10 Blood Pressure Position Sitting 09/11/21 16:10 Pulse Oximetry 94 09/11/21 16:10 Oxygen Delivery Method Room Air 09/11/21 16:10 Oxygen Flow Rate 0 09/11/21 16:10 Pain Level 0 09/11/21 16:10
== END 2021-09-11 17:15 | disposition home or self-care (01) ==
PROVIDERS: Emergency Provider Emergency Medicine; PCP Family Medicine
DX: R00.2 Palpitations (principal); R60.0 Localized edema; F17.210 Nicotine dependence, cigarettes, uncomplicated; F17.290 Nicotine dependence, other tobacco product, uncomplicated; Z98.890 Other specified postprocedural states
CPT/HCPCS: 80053; 93005; 99283; 84484; 85025; 93010; 99282

== ENCOUNTER 2021-11-04 00:50 | Outpatient (CLI) | payer MEDICARE, SELFPAY ==
[2021-11-04] MEDS: Omnipaque 350 MG/ML 100 ML BTL IJ (14:29)
--- NOTE | 2021-11-04 14:30 | DI.CT_ITS ---
Exam(s) CT CHEST W EXAM: CT CHEST W CLINICAL HISTORY: NON-SMALL CELL LUNG CA, STAGE IV, METASTATIC, ASSESS TX. TECHNIQUE: Multi planar reconstructions were performed. CONTRAST MATERIAL: Omnipaque 350; 75 cc COMPARISON: CT CT CHEST/ABD/PEL W from 03/31/[address] CHEST WO from 08/10/2021 FINDINGS: CHEST: LUNGS: There is continued relative stability in the size of the right lower lobe mass-infiltrate. In the immediate right infrahilar region the finding is sigmoid lightly larger, exhibiting slightly inc reased convex outer border. (Series 2/image is 43-44).. No new additional right lung findings nor p leural effusion. Stable small infiltrate noted in lingular segment of the left lung and benign mild increased markings in the lateral basal segment of the left lower lobe. No pleural effusions on eith er side. No significant focal findings in the trachea and mainstem bronchi. MEDIASTINUM: There is no new prominent hilar nor mediastinal adenopathy. Visualized thyroid unremarka ble. CARDIAC: Heart size is normal. There is no pericardial effusion.Caliber of the thoracic aorta is wit hin normal limits. VISUALIZED UPPER ABDOMEN:There are no significant adrenal masses. Benign unchanged cyst in the parti ally visualized right kidney again noted OSSEOUS: Previously described L3 vertebral body finding unchanged. Tiny sclerotic density anterior a spect T10 again noted, unchanged. No new additional osseous findings. IMPRESSION: 1. Compared to prior CT scan of 03/31/2021 and 08/10/2021 there is very subtle mild increased size of the right lower lobe mass. No additional masses. No pleural effusions. 2. L3 findings remain unchanged as as small sclerotic density in the anterior aspect of T10. RADIATION DOSE DELIVERED: 328.09mGy.cm Total DLP DATA REPOSITORY: All CT scans at this facility are submitted to the National Radiology Data Registry (NRDR) Dose Index Registry (DIR) with the [employer] (A[employer]). RADIATION OPTIMIZATION: All CT scans at this facility use at least one of these dose optimization te chniques: automated exposure control; mA and/or kV adjustment per patient size (includes targeted exa ms where dose is matched to clinical indication); or iterative reconstruction.
== END 2021-11-04 01:10 ==
LOC: DI 00:50
PROVIDERS: PCP Family Medicine; Visit Provider Internal Medicine Medical Oncology
DX: C34.31 Malignant neoplasm of lower lobe, right bronchus or lung (principal)
CPT/HCPCS: 36415; 80053; 71260; 83735; 84439; 84443; 85025; J3490

== ENCOUNTER 2021-11-04 12:36 | Outpatient (CLI) | payer MEDICARE, SELFPAY ==
[2021-11-04 13:18] LABS: Abs Immature Grans 0.02 10^3/uL (0.0-0.06); Absolute Basophil Count 0.03 10^3/uL (0.0-0.2); Absolute Eosinophil Count 0.08 10^3/uL (0.0-0.7); Absolute Lymphocyte Count 0.95 10^3/uL (1.2-3.4); Absolute Monocyte Count 0.83 10^3/uL (0.1-0.8); Absolute Neutrophil Count 3.92 10^3/uL (1.2-6.7); Basophils % 0.5; Eosinophils % 1.4; HCT 41.3 % (36.0-46.0); HGB 13.5 g/dL (11.2-15.7); Immature Grans % 0.3; Lymphocytes % 16.3; MCH 32.1 pg (27.0-33.0); MCHC 32.7 % (32.0-36.0); MCV 98 fL (80-95); MPV 9.3 fL (8.0-11.0); Monocytes % 14.2; Neutrophils % 67.3; Platelet Count 256 10^3/uL (130-400); RDW 14.5 % (11.7-14.6); RDW-SD 52.2 fL; WBC 5.83 10^3/uL (4.4-10.8)
[2021-11-04 13:44] LABS: ALT 13 U/L (14-59); AST 18 U/L (15-37); Albumin 3.3 g/dL (3.4-5.0); Alkaline Phosphatase 79 U/L (46-116); Anion Gap 7.2 mmol/L (3-11); BUN 5 mg/dL (7-18); Bilirubin, Total 0.6 mg/dL (0.2-1.0); CO2 30.8 mmol/L (21.0-32.0); CREATININE 0.7 mg/dL (0.55-1.02); Calcium 9.1 mg/dL (8.5-10.1); Chloride 97 mmol/L (98-107); Estimated GFR 95.92 (mL/min/1.73m2); FREE T4 1.04 ng/dL (0.76-1.46); Glucose 97 mg/dL (74-106); Magnesium 1.8 mg/dL (1.8-2.4); Sodium 135 mmol/L (136-145); Total Protein 7.4 g/dL (6.4-8.2)
== END 2021-11-04 12:37 | disposition home or self-care (01) ==
LOC: LBO 12:39
PROVIDERS: PCP Family Medicine; Visit Provider Internal Medicine Medical Oncology
DX: Z79.899 Other long term (current) drug therapy (principal); C34.31 Malignant neoplasm of lower lobe, right bronchus or lung
CPT/HCPCS: 36415; 80053; 83735; 84439; 84443; 85025

== ENCOUNTER 2021-12-05 02:32 | Outpatient (RCR) | payer MEDICARE, SELFPAY ==
[2021-12-05 12:44] LABS: Abs Immature Grans 0.03 10^3/uL (0.0-0.06); Absolute Basophil Count 0.05 10^3/uL (0.0-0.2); Absolute Eosinophil Count 0.15 10^3/uL (0.0-0.7); Absolute Lymphocyte Count 1.29 10^3/uL (1.2-3.4); Absolute Monocyte Count 1.09 10^3/uL (0.1-0.8); Absolute Neutrophil Count 4.68 10^3/uL (1.2-6.7); Basophils % 0.7; Eosinophils % 2.1; HCT 43.3 % (36.0-46.0); HGB 13.9 g/dL (11.2-15.7); Immature Grans % 0.4; Lymphocytes % 17.7; MCH 32.2 pg (27.0-33.0); MCHC 32.1 % (32.0-36.0); MCV 100 fL (80-95); MPV 9.2 fL (8.0-11.0); Neutrophils % 64.1; Platelet Count 299 10^3/uL (130-400); RBC 4.32 10^6/uL (3.93-5.22); RDW 15.6 % (11.7-14.6); RDW-SD 58.4 fL; WBC 7.29 10^3/uL (4.4-10.8)
[2021-12-05 13:14] LABS: ALT 13 U/L (14-59); AST 24 U/L (15-37); Albumin 3.4 g/dL (3.4-5.0); Alkaline Phosphatase 70 U/L (46-116); Anion Gap 5.4 mmol/L (3-11); BUN 12 mg/dL (7-18); Bilirubin, Total 0.4 mg/dL (0.2-1.0); CO2 32.6 mmol/L (21.0-32.0); Calcium 9.2 mg/dL (8.5-10.1); Chloride 98 mmol/L (98-107); Estimated GFR 62.52 (mL/min/1.73m2); FREE T4 0.94 ng/dL (0.76-1.46); Glucose 97 mg/dL (74-106); Potassium 3.6 mmol/L (3.5-5.1); Sodium 136 mmol/L (136-145); TSH 0.89 uIU/mL (0.36-3.74); Total Protein 7.3 g/dL (6.4-8.2)
== END 2021-12-19 23:59 | disposition home or self-care (01) ==
LOC: INF 02:32
PROVIDERS: PCP Family Medicine; Visit Provider Internal Medicine Medical Oncology
DX: C34.91 Malignant neoplasm of unspecified part of right bronchus or lung (principal); Z79.899 Other long term (current) drug therapy
CPT/HCPCS: 36415; 80053; 83735; 84439; 84443; 85025

== ENCOUNTER 2021-12-26 02:34 | Outpatient (CLI) | payer MEDICARE, SELFPAY ==
[2021-12-26 12:50] LABS: Abs Immature Grans 0.03 10^3/uL (0.0-0.06); Absolute Basophil Count 0.04 10^3/uL (0.0-0.2); Absolute Eosinophil Count 0.13 10^3/uL (0.0-0.7); Absolute Lymphocyte Count 0.78 10^3/uL (1.2-3.4); Absolute Monocyte Count 1.07 10^3/uL (0.1-0.8); Absolute Neutrophil Count 7.17 10^3/uL (1.2-6.7); Basophils % 0.4; Eosinophils % 1.4; HCT 43.9 % (36.0-46.0); HGB 14.1 g/dL (11.2-15.7); Immature Grans % 0.3; Lymphocytes % 8.5; MCH 32.2 pg (27.0-33.0); MCHC 32.1 % (32.0-36.0); MCV 100 fL (80-95); MPV 8.8 fL (8.0-11.0); Monocytes % 11.6; Neutrophils % 77.8; Platelet Count 329 10^3/uL (130-400); RBC 4.38 10^6/uL (3.93-5.22); RDW 14.3 % (11.7-14.6); RDW-SD 52.8 fL; WBC 9.22 10^3/uL (4.4-10.8)
[2021-12-26 13:13] LABS: ALT 8 U/L (14-59); AST 17 U/L (15-37); Albumin 3.2 g/dL (3.4-5.0); Alkaline Phosphatase 72 U/L (46-116); Anion Gap 5.2 mmol/L (3-11); BUN 9 mg/dL (7-18); Bilirubin, Total 0.4 mg/dL (0.2-1.0); CO2 32.8 mmol/L (21.0-32.0); CREATININE 0.9 mg/dL (0.55-1.02); Chloride 99 mmol/L (98-107); Estimated GFR 70.95 (mL/min/1.73m2); Glucose 107 mg/dL (74-106); Magnesium 1.7 mg/dL (1.8-2.4); Potassium 4.4 mmol/L (3.5-5.1); Sodium 137 mmol/L (136-145); TSH 0.62 uIU/mL (0.36-3.74); Total Protein 7.2 g/dL (6.4-8.2)
== END 2021-12-26 02:35 | disposition home or self-care (01) ==
LOC: LBO 02:34
PROVIDERS: PCP Family Medicine; Visit Provider Internal Medicine Medical Oncology
DX: C34.31 Malignant neoplasm of lower lobe, right bronchus or lung (principal); Z79.899 Other long term (current) drug therapy
CPT/HCPCS: 36415; 80053; 83735; 84439; 84443; 85025

== ENCOUNTER 2022-01-16 02:57 | Outpatient (CLI) | payer MEDICARE, SELFPAY ==
[2022-01-16 12:30] LABS: Abs Immature Grans 0.03 10^3/uL (0.0-0.06); Absolute Basophil Count 0.03 10^3/uL (0.0-0.2); Absolute Eosinophil Count 0.03 10^3/uL (0.0-0.7); Absolute Lymphocyte Count 0.57 10^3/uL (1.2-3.4); Absolute Monocyte Count 0.81 10^3/uL (0.1-0.8); Absolute Neutrophil Count 7.71 10^3/uL (1.2-6.7); Basophils % 0.3; Eosinophils % 0.3; HCT 43.2 % (36.0-46.0); HGB 13.9 g/dL (11.2-15.7); Immature Grans % 0.3; Lymphocytes % 6.2; MCH 32.3 pg (27.0-33.0); MCHC 32.2 % (32.0-36.0); MCV 100 fL (80-95); MPV 8.7 fL (8.0-11.0); Monocytes % 8.8; Neutrophils % 84.1; Platelet Count 480 10^3/uL (130-400); RBC 4.31 10^6/uL (3.93-5.22); RDW 13.4 % (11.7-14.6); RDW-SD 49.8 fL; WBC 9.18 10^3/uL (4.4-10.8)
[2022-01-16 12:54] LABS: ALT 13 U/L (14-59); AST 24 U/L (15-37); Alkaline Phosphatase 79 U/L (46-116); Anion Gap 6.8 mmol/L (3-11); BUN 8 mg/dL (7-18); Bilirubin, Total 0.3 mg/dL (0.2-1.0); CO2 30.2 mmol/L (21.0-32.0); Calcium 9.1 mg/dL (8.5-10.1); Chloride 96 mmol/L (98-107); Estimated GFR 62.52 (mL/min/1.73m2); Glucose 106 mg/dL (74-106); Magnesium 2.1 mg/dL (1.8-2.4); Sodium 133 mmol/L (136-145); TSH 1.01 uIU/mL (0.36-3.74); Total Protein 8.2 g/dL (6.4-8.2)
== END 2022-01-16 02:58 | disposition home or self-care (01) ==
LOC: LBO 02:57
PROVIDERS: PCP Family Medicine; Visit Provider Internal Medicine Medical Oncology
DX: C34.31 Malignant neoplasm of lower lobe, right bronchus or lung (principal); Z79.899 Other long term (current) drug therapy
CPT/HCPCS: 36415; 80053; 83735; 84439; 84443; 85025

== ENCOUNTER 2022-07-03 02:52 | Outpatient (CLI) | payer MEDICARE, SELFPAY ==
[2022-07-03 12:23] LABS: Abs Immature Grans 0.01 10^3/uL (0.0-0.06); Absolute Basophil Count 0.03 10^3/uL (0.0-0.2); Absolute Eosinophil Count 0.06 10^3/uL (0.0-0.7); Absolute Lymphocyte Count 0.49 10^3/uL (1.2-3.4); Absolute Monocyte Count 0.47 10^3/uL (0.1-0.8); Absolute Neutrophil Count 7.56 10^3/uL (1.2-6.7); Basophils % 0.3; Eosinophils % 0.7; HCT 39.2 % (36.0-46.0); HGB 12.4 g/dL (11.2-15.7); Immature Grans % 0.1; Lymphocytes % 5.7; MCH 31.9 pg (27.0-33.0); MCHC 31.6 % (32.0-36.0); MCV 101 fL (80-95); MPV 9.8 fL (8.0-11.0); Monocytes % 5.5; Neutrophils % 87.7; Platelet Count 241 10^3/uL (130-400); RBC 3.89 10^6/uL (3.93-5.22); RDW 14.7 % (11.7-14.6); RDW-SD 54.4 fL; WBC 8.62 10^3/uL (4.4-10.8)
[2022-07-03 12:59] LABS: ALT 15 U/L (14-59); AST 9 U/L (15-37); Alkaline Phosphatase 54 U/L (46-116); BUN 10 mg/dL (7-18); Bilirubin, Total 0.2 mg/dL (0.2-1.0); CREATININE 0.8 mg/dL (0.55-1.02); Calcium 8.8 mg/dL (8.5-10.1); Chloride 105 mmol/L (98-107); Estimated GFR 81.21 (mL/min/1.73m2); FREE T4 0.84 ng/dL (0.76-1.46); Glucose 154 mg/dL (74-106); Magnesium 2.1 mg/dL (1.8-2.4); Potassium 3.8 mmol/L (3.5-5.1); Sodium 140 mmol/L (136-145); TSH 0.33 uIU/mL (0.36-3.74); Total Protein 6.8 g/dL (6.4-8.2)
== END 2022-07-03 02:53 | disposition home or self-care (01) ==
LOC: LBO 02:52
PROVIDERS: PCP Family Medicine; Visit Provider Internal Medicine Medical Oncology
DX: C34.31 Malignant neoplasm of lower lobe, right bronchus or lung (principal); Z79.899 Other long term (current) drug therapy
CPT/HCPCS: 36415; 80053; 83735; 84439; 84443; 85025

== ENCOUNTER 2022-07-19 02:37 | Outpatient (CLI) | payer MEDICARE, SELFPAY ==
--- NOTE | 2022-07-19 11:00 | DI.CT_ITS ---
Exam(s) CT CHEST W EXAM: CT CHEST W CLINICAL HISTORY: Non-small cell lung CA, RLL, C34.31, ? tx response TECHNIQUE: Imaging Protocol: Axial computed tomography images with coronal and sagittal reformatted images were created and reviewed CONTRAST MATERIAL: Intravenous: Omnipaque 350 Contrast volume:70 ml. COMPARISON: CT CT CHEST W from 11/04/2021 FINDINGS: Exam somewhat limited by motion. Pulmonary parenchyma: Increased size of mass seen in the right lower lobe, adjacent to the major fiss ure and inferior right hilum.. Approximate measurements now 4 by 2.5 by 3.5 cm. There is mild dista l atelectasis along the major fissure, similar to prior. Scattered areas of linear scarring. No new masses. Underlying emphysematous changes, more severe in the upper lobes. Tracheobronchial tree: No bronchiectasis or mucous plugging. Mediastinum and Yeni: No dominant adenopathy or fluid collection. Pleura: No effusion or pneumothorax. Heart: The heart is not dilated. No coronary artery calcifications are seen. Aorta: Thoracic aorta non-dilated. Upper abdomen: Mildly limited due to motion. Unremarkable. Bones: Minimaldegenerative changes. Previously noted sclerotic areas L3 is not included on the fiel d of view of today's exam. Soft tissues: Unremarkable. IMPRESSION: Further increase in size of right lower lobe mass. RADIATION DOSE DELIVERED: 254.98mGy.cm Total DLP DATA REPOSITORY: All CT scans at this facility are submitted to the National Radiology Data Registry (NRDR) Dose Index Registry (DIR) with the [employer] ([employer]). RADIATION OPTIMIZATION: All CT scans at this facility use at least one of these dose optimization te chniques: automated exposure control; mA and/or kV adjustment per patient size (includes targeted exa ms where dose is matched to clinical indication); or iterative reconstruction.
[2022-07-19] MEDS: Normal Saline - Diluent 50 ML VIAL IJ (11:26)
[2022-07-19] MEDS: Normal Saline Flush 10 ML SYR IVP (11:26)
== END 2022-07-19 02:57 ==
LOC: DI 02:37
PROVIDERS: PCP Family Medicine; Visit Provider Nurse Practitioner Family
DX: C34.31 Malignant neoplasm of lower lobe, right bronchus or lung (principal); R91.8 Other nonspecific abnormal finding of lung field
CPT/HCPCS: 71260

== ENCOUNTER 2022-07-26 04:21 | Outpatient (CLI) | payer MEDICARE, SELFPAY ==
[2022-07-26 12:49] LABS: Absolute Basophil Count 0.03 10^3/uL (0.0-0.2); Absolute Lymphocyte Count 0.47 10^3/uL (1.2-3.4); Basophils % 0.3; Eosinophils % 0.5; HCT 44.2 % (36.0-46.0); Immature Grans % 0.9; Lymphocytes % 4.3; MCHC 31.7 % (32.0-36.0); MCV 98 fL (80-95); MPV 9.2 fL (8.0-11.0); Monocytes % 5.9; Neutrophils % 88.1; Platelet Count 228 10^3/uL (130-400); RBC 4.51 10^6/uL (3.93-5.22); RDW 13.5 % (11.7-14.6); WBC 10.93 10^3/uL (4.4-10.8)
[2022-07-26 12:50] LABS: Absolute Eosinophil Count 0.05 10^3/uL (0.0-0.7); Absolute Monocyte Count 0.64 10^3/uL (0.1-0.8); Absolute Neutrophil Count 9.63 10^3/uL (1.2-6.7)
[2022-07-26 13:26] LABS: ALT 26 U/L (14-59); AST 15 U/L (15-37); Alkaline Phosphatase 59 U/L (46-116); BUN 16 mg/dL (7-18); Bilirubin, Total 0.2 mg/dL (0.2-1.0); CREATININE 1.2 mg/dL (0.55-1.02); Calcium 9.1 mg/dL (8.5-10.1); Chloride 102 mmol/L (98-107); Estimated GFR 49.92 (mL/min/1.73m2); FREE T4 0.87 ng/dL (0.76-1.46); Glucose 110 mg/dL (74-106); Potassium 4.5 mmol/L (3.5-5.1); Sodium 136 mmol/L (136-145); Total Protein 6.8 g/dL (6.4-8.2)
== END 2022-07-26 04:22 | disposition home or self-care (01) ==
LOC: LBO 04:21
PROVIDERS: PCP Family Medicine; Visit Provider Internal Medicine Medical Oncology
DX: C34.31 Malignant neoplasm of lower lobe, right bronchus or lung (principal); Z79.899 Other long term (current) drug therapy
CPT/HCPCS: 36415; 80053; 83735; 84439; 84443; 85025

== ENCOUNTER 2022-08-16 02:44 | Outpatient (CLI) | payer MEDICARE, SELFPAY ==
[2022-08-16 13:24] LABS: Abs Immature Grans 0.09 10^3/uL (0.0-0.06); Absolute Basophil Count 0.01 10^3/uL (0.0-0.2); Absolute Eosinophil Count 0.01 10^3/uL (0.0-0.7); Absolute Lymphocyte Count 0.38 10^3/uL (1.2-3.4); Absolute Monocyte Count 0.24 10^3/uL (0.1-0.8); Absolute Neutrophil Count 6.98 10^3/uL (1.2-6.7); Basophils % 0.1; Eosinophils % 0.1; HCT 46.9 % (36.0-46.0); HGB 15.4 g/dL (11.2-15.7); Immature Grans % 1.2; Lymphocytes % 4.9; MCH 31.2 pg (27.0-33.0); MCHC 32.8 % (32.0-36.0); MCV 95 fL (80-95); MPV 9.1 fL (8.0-11.0); Monocytes % 3.1; Neutrophils % 90.6; Platelet Count 210 10^3/uL (130-400); RBC 4.93 10^6/uL (3.93-5.22); RDW 13.3 % (11.7-14.6); RDW-SD 47.1 fL; WBC 7.71 10^3/uL (4.4-10.8)
[2022-08-16 13:46] LABS: ALT 27 U/L (14-59); AST 10 U/L (15-37); Albumin 3.2 g/dL (3.4-5.0); Alkaline Phosphatase 60 U/L (46-116); Anion Gap 10.3 mmol/L (3-11); BUN 23 mg/dL (7-18); Bilirubin, Total 0.3 mg/dL (0.2-1.0); CO2 26.7 mmol/L (21.0-32.0); CREATININE 0.9 mg/dL (0.55-1.02); Calcium 8.7 mg/dL (8.5-10.1); Chloride 99 mmol/L (98-107); Estimated GFR 70.51 (mL/min/1.73m2); FREE T4 0.99 ng/dL (0.76-1.46); Glucose 178 mg/dL (74-106); Magnesium 1.9 mg/dL (1.8-2.4); Potassium 4.1 mmol/L (3.5-5.1); Sodium 136 mmol/L (136-145); TSH 0.25 uIU/mL (0.36-3.74); Total Protein 7.2 g/dL (6.4-8.2)
== END 2022-08-16 02:45 | disposition home or self-care (01) ==
LOC: LBO 02:44
PROVIDERS: PCP Family Medicine; Visit Provider Internal Medicine Medical Oncology
DX: C34.31 Malignant neoplasm of lower lobe, right bronchus or lung (principal); Z79.899 Other long term (current) drug therapy
CPT/HCPCS: 36415; 80053; 83735; 84439; 84443; 85025

== ENCOUNTER 2022-09-04 12:04 | Observation (INO) | payer MEDICARE, SELFPAY ==
[2022-09-04] VITALS (85 sets, daily range): BP systolic 93–133; BP diastolic 60–85; PULSE 67–101; RESP 15–32; TEMP 36; O2SAT 93–96
--- NOTE | 2022-09-04 12:00 | DI.RAD_ITS ---
Exam(s) XR CHEST 2V PA LATERAL EXAM: XR CHEST 2V PA LATERAL CLINICAL HISTORY: confusion, fever TECHNIQUE: 2D digital imaging was performed. COMPARISON: CT CT CHEST W from 07/19/2022 FINDINGS: HEART: Normal size. Aorta: Not dilated. PULMONARY VASCULATURE: Normal. LUNGS: Rounded mass below the right hilum as seen on prior CT. No infiltrate PLEURAL SPACE: No pleural effusion or pneumothorax. BONE:Unremarkable for age. IMPRESSION: Right inferior hilar mass. No evidence of pneumonia. DATA REPOSITORY: RADIATION DOSE DELIVERED:
--- NOTE | 2022-09-04 12:15 | DI.CT_ITS ---
Exam(s) CT HEAD WO EXAM: CT HEAD WO CLINICAL HISTORY: increased confusion. TECHNIQUE: Imaging Protocol: Axial computed tomography images with coronal and sagittal reformatted images were created and reviewed COMPARISON: MR MR BRAIN WO/W from 08/10/2021 FINDINGS: Ventricles and Extra axial spaces: Normal in size and morphology for the patient's age. Hemorrhage: None. Cerebral parenchyma: Area of decreased attenuation in the left frontal lobe without mass effect or h emorrhage. Patient has a history of previous metastatic lesion in this location. The appearance is much improved from the prior exam. There is underlying atrophy. Midline shift: None. Brainstem/Cerebellum: Normal. Calvarium: Left frontal craniotomy defect. Visualized Paranasal sinuses/Mastoids: Clear. Soft Tissues: Unremarkable. IMPRESSION: Prior post treatment changes in the left frontal lobe. No acute abnormality. RADIATION DOSE DELIVERED: 664.55mGy.cm Total DLP DATA REPOSITORY: All CT scans at this facility are submitted to the National Radiology Data Registry (NRDR) Dose Index Registry (DIR) with the [employer] (ACR). RADIATION OPTIMIZATION: All CT scans at this facility use at least one of these dose optimization te chniques: automated exposure control; mA and/or kV adjustment per patient size (includes targeted exa ms where dose is matched to clinical indication); or iterative reconstruction.
--- NOTE | 2022-09-04 12:15 | RT.EKG_ITS ---
APPROVED REPORT Exam: Resting ECG Reason for Exam: confusion Patient Location: E HR:90 bpm ECG Measurements Heart Rate 90 AXIS FL 112 P 62 QRSd 78 QRS 7 QT 332 T 19 QTc 406 Conclusion Sinus rhythm...normal P axis, V-rate 60- 99 Atrial premature complex...SV complex w/ short R-R interval Low voltage, extremity leads...all extremity leads <0.5mV Physician: no stemi
[2022-09-04 12:36] LABS: BE (Venous) 4 mmol/L (-2-3); HCO3 (Venous) 28 mmol/L (23-28); O2 Sat (Venous) 55 %; TCO2 (Venous) 25 mmol/L (24-29); pCO2 (Venous) 43 mmHg (41-51); pH (Venous) 7.42 (7.31-7.41); pO2 (Venous) 29 mmHg
[2022-09-04] MEDS: VANCOMYCIN 1,000 MG in Normal Saline 250 ML 166.6666 MG IVPB (12:36)
[2022-09-04] MEDS: Normal Saline 1,000 ML 500 ML IV (12:37)
[2022-09-04 12:38] LABS: HCT 40.1 % (36.0-46.0); HGB 13.6 g/dL (11.2-15.7); MCH 30.9 pg (27.0-33.0); MCHC 33.9 % (32.0-36.0); MCV 91 fL (80-95); MPV 9.2 fL (8.0-11.0); Platelet Count 241 10^3/uL (130-400); RDW 14.7 % (11.7-14.6); RDW-SD 49.3 fL; WBC 15.41 10^3/uL (4.4-10.8)
[2022-09-04 12:40] LABS: ESR 94 mm/hr (0-30); Lactate 1.3 mmol/L (0.6-1.4)
[2022-09-04 12:50] LABS: PTT Activated 28.3 sec (21.5-31.9); Prothrombin Time 10.3 sec (9.3-11.0)
[2022-09-04 13:05] LABS: ALT 73 U/L (14-59); AST 35 U/L (15-37); Albumin 1.8 g/dL (3.4-5.0); Alkaline Phosphatase 103 U/L (46-116); Anion Gap 7.7 mmol/L (3-11); BUN 15 mg/dL (7-18); Bilirubin, Total 0.6 mg/dL (0.2-1.0); CO2 28.3 mmol/L (21.0-32.0); CREATININE 0.8 mg/dL (0.55-1.02); Calcium 8.6 mg/dL (8.5-10.1); Chloride 99 mmol/L (98-107); Estimated GFR 81.21 (mL/min/1.73m2); Glucose 93 mg/dL (74-106); Magnesium 1.7 mg/dL (1.8-2.4); Potassium 3.8 mmol/L (3.5-5.1); Sodium 135 mmol/L (136-145); Troponin I < 50 ng/L (<or=60)
[2022-09-04 13:12] LABS: Absolute Lymphocyte Count 0.15 10^3/uL (1.2-3.4); Absolute Monocyte Count 0.62 10^3/uL (0.1-0.8); Absolute Neutrophil Count 14.64 10^3/uL (1.2-6.7); Bands % 16; Diff Comment Manual Differential; RBC Morphology Normal
--- NOTE | 2022-09-04 13:21 | ED.GENADUL_ITS ---
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 Patient is accompanied by her daughter Jud who is primary student career development specialist. Patient is confused, daguther sta sandra seh has baseline dementia but that today is slightly worse. She states that her mother tried to walk to the bathroom this morning but started to urinate on the way and slipped in re urine causing her to fall onto her bottom. Did not strike her head. Denies LOC or HOROWITZ. No pain associated with fall. Reviewed note from [facility]. Patient is being treated with immunotherapy currently and is not receiving chemo or radiation. She has had surgical resection to the left frontal metastasis 1 year ago. They report that her cancer is currently stable. Patient has been followed by palliative care and is on gabapentin for chronic pain. Is chronically on dexamethasone and recently had prednisone added to her regimen as she was started does note a rash on her arms and abdomen COVID which they were concerned was associated with the immunotherapy. Her last dosing was 3 weeks ago. On exam, patient appears acute on chronically ill. She has rash to the circumferential thighs extending toward the buttock but excluding the gluteal folds. Spares the lower extremities. This rash is erythematous with some petechial component particular on the left. Quite tender to touch as well as hot. Well demarcated line inferiorly with the remaining lower extremity appearing nor mottled. Similar rash in the upper extremities as well with 2 areas on the right upper extremity and 1 area in the left upper extremity that are open wounds with some of the skin sloughed off. Daughter shows pictures that show a blister, these of all since popped. She also has a small dried circular lesion on the upper lip as well as in the right naris. Patient also has a lesion on the right side of her scalp. Lungs are clear, normal cardiac exam. Differential quite broad. Patient also evaluated by physician, we discussed case and will begin on Vanco. Concern for drug reaction, SSS, SJS, TEN, cellulitis vs other. Labs reviewed. Patient has a white count of 15.4. This may be associated with steroids. Patient is getting antibiotics, started on vancomycin. ESR is elevated at 94. CRP is over 25. CMP significant abnormality. Urine is pending, will obtain a straight cath. ALT is slightly elevated at 73. Once urine is back, will call her oncology team at [facility] [place]. FINDINGS: Ventricles and Extra axial spaces: Normal in size and morphology for the patient's age. Hemorrhage: None. Cerebral parenchyma: Area of decreased attenuation in the left frontal lobe without? mass effect or hemorrhage.? Patient has a history of previous metastatic lesion in this location.? The appearance is much improved from the prior exam.? There is underlying atrophy. Midline shift: None. Brainstem/Cerebellum: Normal. Calvarium: Left frontal craniotomy defect. Visualized Paranasal sinuses/Mastoids: Clear. Soft Tissues: Unremarkable. IMPRESSION: Prior post treatment changes in the left frontal lobe.? No acute abnormality. FINDINGS: HEART: Normal size.? Aorta: Not dilated. PULMONARY VASCULATURE: Normal. LUNGS: Rounded mass below the right hilum as seen on prior CT.? No infiltrate? PLEURAL SPACE: No pleural effusion or pneumothorax. BONE:Unremarkable for age.? IMPRESSION: Right inferior hilar mass.? No evidence of pneumonia. UA shows trace protein, trace blood. Will reach out oncology at [facility] [place]. Consulted with Dr. Estrada as she did with oncology. He advised consulting with dermatology and sending dermatology images of the areas. Advised that if they do not feel that this could be SJS or TE N, increasing her steroids to 2 mg/kg IV Images obtained with patient's consent to be sent to dermatology once we are able to get the contact information. At the end of my shift, care transition to Jaciel Pyle NP with consultation pending. Patient has received the IV Vanco, is resting comfortably. Has been receiving IV fluids and was eating and drinking. Wound on the dorsal aspect of the right hand did have some purulent discharge which was swabbed and sent for culture [id number]-signout received from Shania AMARO. Pending consult with [facility] [place] dermatology Spoke with assembler ping pong table that stated unless images were uploaded to the [facility] charting system they would not be able to review images. Just based on description and discussion they thought that this was potentially drug-related to the immunotherapy that she had started. They thought potential Ajept, paraneoplastic syndrome, Sweet syndrome... Along with other multiple differential diagnoses that needed a biopsy. They stated they can do this on an outpatient basis. I informed them that given patient's weakness increasing confusion and falls that I felt that she needed to be admitted. They recommended continuing steroids and otherwise having her follow-up on an outpatient basis once discharged or to consult for any worsening of condition. I did order 125 Solu-Medrol to see if this would help along with some mainte nance IV fluids given that patient does appear dry. Will contact hospitalist for discussion of admission and further monitoring of patient's weakness confusion and rash. Discussed case with hospitalist who agreed to admit patient for further monitoring of rash, consult with Derm again as needed, and to continue ongoing treatment of steroids and fluids. 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 Patient is accompanied by her daughter Jud who is primary student career development specialist. Patient is confused, daguther states seh has baseline dementia but that today is slightly worse. She states that her mother tried to walk to the bathroom this morning but started to urinate on the way and slipped in re urine causing her to fall onto her bottom. Did not strike her head. Denies LOC or HOROWITZ. No pain associated with fall. Reviewed note from [facility]. Patient is being treated with immunotherapy currently and is not receiving chemo or radiation. She has had surgical resection to the left frontal metastasis 1 year ago. They report that her cancer is currently stable. Patient has been followed by palliative care and is on gabapentin for chronic pain. Is chronically on dexamethasone and recently had prednisone added to her regimen as she was started does note a rash on her arms and abdomen COVID which they were concerned was associated with the immunotherapy. Her last dosing was 3 weeks ago. On exam, patient appears acute on chronically ill. She has rash to the circumferential thighs extending toward the buttock but excluding the gluteal folds. Spares the lower extremities. This rash is erythematous with some petechial component particular on the left. Quite tender to touch as well as hot. Well demarcated line inferiorly with the remaining lower extremity appearing nor mottled. Similar rash in the upper extremities as well with 2 are as on the right upper extremity and 1 area in the left upper extremity that are open wounds with some of the skin sloughed off. Daughter shows pictures that show a blister, these of all since popped. She also has a small dried circular lesion on the upper lip as well as in the right naris. Patient also has a lesion on the right side of her scalp. Lungs are clear, normal cardiac exam. Labs reviewed. Patient has a white count of 15.4. This may be associated with steroids. Patient is getting antibiotics, started on vancomycin. ESR is elevated at 94. CRP is over 25. CMP significant abnormality. Urine is pending, will obtain a straight cath. ALT is slightly elevated at 73. Once urine is back, will call her oncology team at [facility] [place]. FINDINGS: Ventricles and Extra axial spaces: Normal in size and morphology for the patient's age. Hemorrhage: None. Cerebral parenchyma: Area of decreased attenuation in the left frontal lobe without? mass effect or hemorrhage.? Patient has a history of previous metastatic lesion in this location.? The appearance is much improved from the prior exam.? There is underlying atrophy. Midline shift: None. Brainstem/Cerebellum: Normal. Calvarium: Left frontal craniotomy defect. Visualized Paranasal sinuses/Mastoids: Clear. Soft Tissues: Unremarkable. IMPRESSION: Prior post treatment changes in the left frontal lobe.? No acute abnormality. FINDINGS: HEART: Normal size.? Aorta: Not dilated. PULMONARY VASCULATURE: Normal. LUNGS: Rounded mass below the right hilum as seen on prior CT.? No infiltrate? PLEURAL SPACE: No pleural effusion or pneumothorax. BONE:Unremarkable for age.? IMPRESSION: Right inferior hilar mass.? No evidence of pneumonia. UA shows trace protein, trace blood. Will reach out oncology at [facility] [place]. Consulted with Dr. Estrada as she did with oncology. He advised consulting with dermatology and sending dermatology images of the areas. Advised that if they do not feel that this could be SJS or TE N, increasing her steroids to 2 mg/kg IV Images obtained with patient's consent to be sent to dermatology once we are able to get the contact information. At the end of my shift, care transition to Jaciel Pyle NP with consultation pending. Patient has received the IV Vanco, is resting comfortably. Has been receiving IV fluids and was eating and drinking. Wound on the dorsal aspect of the right hand did have some purulent discharge which was swabbed and sent for culture [id number]-signout received from Shania AMARO. Pending consult with [facility] [place] dermatology Spoke with assembler ping pong table that stated unless images were uploaded to the [facility] charting system they would not be able to review images. Just based on description and discussion they thought that this was potentially drug-related to the immunotherapy that she had started. They thought potential Ajept, paraneoplastic syndrome, Sweet syndrome... Along with other multiple differential diagnoses that needed a biopsy. They stated they can do this on an outpatient basis. I informed them that given patient's weakness increasing confusion and falls that I felt that she needed to be admitted. They recommended continuing steroids and otherwise having her follow-up on an outpatient basis once discharged or to consult for any worsening of condition. I did order 125 Solu-Medrol to see if this would help along with some maintenance IV fluids given that patient does appear dry. Will contact hospitalist for discussion of admission and further monitoring of patient's weakness confusion and rash. Discussed case with hospitalist who agreed to admit patient for further monitoring of rash, consult with Derm again as needed, and to continue ongoing treatment of steroids and fluids. HPI <PREM Soriano - Last Filed: 09/18/22 05:09> General Date/Time Provider Initiated Documentation: 09/04/22 12:44 . Limitations to Documentation: altered mental status (Alzheimers per daughter, patient slightly advanced from baseline) . Information obtained by: patient, family, EMS and RN notes reviewed . History of Present Illness 67 year old F presents to the emergency department with the chief complaint of Rash, weakness, worsening AMS, described as moderate, with intensity rated at 1 (patient denies pain currently but does have pain with movement). Quality is described as burning and aching, and is localized to the buttocks, left, right, upper extremity and lower extremity. Patient started experiencing this day(s) and it has been constant. Immobilization improves symptom(s), Movement worsens symptoms . Patient notes confusion, loss of appetite (sounds to be chronic), malaise, rash and weakness; denies chest pain, cough, diaphoresis, fever/chills, headaches, nausea/vomiting and shortness of breath. Patient did receive the following treatments prior to arrival, other (prednisone) Related Data Home Medications Medication Instructions Recorded Confirmed multivitamin (Daily Multi-Vitamin 1 tab PO DAILY 03/11/19 09/12/22 tablet) folic acid 1 mg tablet 1 mg PO DAILY 01/20/21 09/12/22 omeprazole 20 mg capsule,delayed 20 mg PO DAILY 01/20/21 09/12/22 release ondansetron 4 mg disintegrating 4 mg PO Q8H PRN nausea and 01/20/21 09/12/22 tablet vomiting #30 tabs prochlorperazine maleate 10 mg 10 mg PO Q6H PRN 01/20/21 09/12/22 tablet naloxone 4 mg/actuation nasal 1 spray intranasal Q2-3M PRN 06/08/21 09/12/22 spray (Narcan) gabapentin 100 mg capsule 200 - 300 mg PO TID #300 caps 08/26/21 09/12/22 sertraline 50 mg tablet 50 mg PO DAILY #30 tabs 10/28/21 09/12/22 benzonatate 100 mg capsule 100 - 200 mg PO TID PRN cough #30 09/01/22 09/12/22 caps triamcinolone acetonide 0.1 % 1 applic topical BID 09/04/22 09/12/22 topical cream cetirizine 10 mg tablet (All Day 10 mg PO DAILY #0 tabs 09/06/22 09/12/22 Allergy (cetirizine)) clotrimazole-betamethasone 1 1 applic topical BID #45 grams 09/06/22 09/12/22 %-0.05 % topical cream diphenhydramine-zinc acetate 2 1 applic topical Q4H PRN PRN 09/06/22 09/12/22 %-0.1 % topical cream (Banophen Itching #28 grams Anti-Itch) prednisone 10 mg tablet 30 mg PO DAILY #30 tabs 09/06/22 09/12/22 dronabinol 5 mg capsule (Marinol) 5 mg PO DAILY 09/12/22 09/12/22 Previous Rx's Medication Instructions Recorded ondansetron 4 mg disintegrating 4 mg PO Q8H PRN nausea and 01/20/21 tablet vomiting #30 tabs gabapentin 100 mg capsule 200 - 300 mg PO TID #300 caps 08/26/21 sertraline 50 mg tablet 50 mg PO DAILY #30 tabs 10/28/21 benzonatate 100 mg capsule 100 - 200 mg PO TID PRN cough #30 09/01/22 caps cetirizine 10 mg tablet (All Day 10 mg PO DAILY #0 tabs 09/06/22 Allergy (cetirizine)) clotrimazole-betamethasone 1 1 applic topical BID #45 grams 09/06/22 %-0.05 % topical cream diphenhydramine-zinc acetate 2 1 applic topical Q4H PRN PRN 09/06/22 %-0.1 % topical cream (Banophen Itching #28 grams Anti-Itch) prednisone 10 mg tablet 30 mg PO DAILY #30 tabs 09/06/22 Allergies Allergy/AdvReac Type Severity Reaction Status Date / Time No Known Allergies Allergy Verified 09/12/22 10:22 General Stated Complaint: [facility] KRAEN: 3 Review of Systems <PREM Soriano - Last Filed: 09/18/22 05:09> Narrative: Discussed with patient but d/t her confusion, unclear if this is accurate. She was not able to answer some questions at all. PFSH <PREM Soriano - Last Filed: 09/18/22 05:09> All Active Problems Right thigh pain (Acute) Lytic bone lesion of hip (Acute) Lung cancer, lower lobe (Acute) non-small cell,Stage IV Fall (Acute 10/20/20) Secondary malignant neoplasm of bone (Acute) Memory loss due to medical condition (Acute) Hyponatremia (Acute) Palliative care patient (Acute) Bilateral lower extremity edema (Acute) Brain metastases (Acute 08/17/21) Primary malignant neoplasm of right lower lobe of lung (Acute) Weakness (Acute) Rash and nonspecific skin eruption (Acute) Advance care planning (Acute) Cough (Chronic) Herpes labialis (Acute) History of immunotherapy (Acute) Drug-induced skin rash (Acute) Keytruda Cognitive change (Acute) Surgical History S/P hip hemiarthroplasty (10/21/20) [facility] [place] Right Family History Mother Hypertension Heart disease Maternal Grandmother Stroke Father Myeloma Paternal Grandmother Cancer ovarian Social History Smoking/Tobacco Use Status: Current every day Tobacco Type: cigarettes and e- cigarettes Tobacco: How many years used: 30 Smoking risk assessment performed?: Yes Alcohol Intake: current Alcohol Intake frequency: 0-2 drinks per day Alcohol type: wine Drug use: Rarely Substance use type: does not use Adopted: No Caregiver/Support person: No Household members: children and other Details: Moved from [place] 2019 helps daughter on her farm Housing: house Number of Children: 3 number of grandchildren: 9 Communication Needs: None Education Level: master's degree Do you need help understanding health information?: Rarely 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 Pets and animals: Yes (1) Pets and animals: dog(s) Sexually active: No Do you think of yourself as: straight/heterosexual Current gender identity: female What is your relationship status?: How often do you talk on the phone with friends or family?: once per week Do you belong to any clubs or organized social groups?: no Panel score (0-1 are the most socially isolated patients): 0 What type of physical activity do you participate in: regular exercise Duration: 45-60 minutes/day Frequency: 5-6 times per week Lana/Druze: Christianity Special lana needs: No Seatbelt use: always Helmet use: Yes Helmet use: always Drive intox or ride w/intox 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: No Do you feel safe at home: Yes Do you feel safe in your relationship?: Yes Female Reproductive History Menstrual Menopause type: natural History History 3 Para 3 Hx # Term Pregnancies Multiple births Hx # Pregnancies Ectopic pregnancies AB induced Hx Number of Living Children AB spontaneous Exam <PREM Soriano - Last Filed: 09/18/22 05:09> Const General: cooperative, comfortable, no acute distress, well developed, well groomed, frail appearing and ill appearing acutely and chronically Nutritional Appearance: average body habitus and well nourished Orientation: alert and awake [facility] Head: no palpable skull fracture, normocephalic and atraumatic Head images: 1. Dry area with excoriation and plaque Ears: external ears normal Mouth: oral mucosae normal, lip normal and tongue normal Throat: posterior oropharynx normal Eyes General: appearance normal, both eyes and all related structures Conjunctivae: conjunctivae normal Chest Chest: normal inspection of the chest and normal palpation of entire chest wall Resp Effort & Inspection: normal respiratory effort, able to speak in complete sentences and no respiratory distress Auscultation: no rales, no rhonchi and no wheezes Cardio Rate: regular rate Rhythm: regular rhythm Heart Sounds: S1 normal and S2 normal GI Inspection: normal to inspection and no abdominal wall ecchymosis Palpation: soft, not firm, no guarding, not rigid and nontender Back/Spine/Pelvis Back: other (linear areas of erythema along right flank with some tenderness, no fluctua) Cervical Spine: cervical ROM normal Thoracic/Lumbar Spine: thoracic and lumbar spine normal to inspection and thoraco-lumbar ROM normal Skin General skin exam: decreased turgor, atrophy, dry skin, no ecchymosis, erythema (near circumferential bilateral thighs with pain, warmth, no joint involved), no fluctuance, no induration and turgor decreased Lesions: lesion noted (open areas bilteral hands and elbows) and other (area of erythema on thighs spares the genitals but extends to buttock) Neuro General: patient alert, patient awake, tone normal and moves all extremities Cranial Nerves: CN's II-XI intact bilaterally Speech: speech normal Gait: normal gait Motor: muscle tone normal throughout and strength 5/5 throughout Sensory Exam: no sensory deficits noted (no saddle paresthesias) Course <PREM Soriano - Last Filed: 09/18/22 05:09> Vital Signs Vital signs: Vital Signs Respiratory Rate 25 H 09/04/22 12:02 Blood Pressure 116/66 09/04/22 12:02 Pulse Oximetry 96 09/04/22 12:02 Respiratory Rate 25 H 09/04/22 12:02 Respiratory Effort Normal 09/04/22 12:09 Blood Pressure 116/66 09/04/22 12:02 Pulse Oximetry 96 09/04/22 12:02 Lab/Test Results Lab/Test Results: 09/04/22 12:55 Blood Blood Culture - Pending 09/04/22 12:25 Blood Blood Culture - Pending Laboratory Tests Range/Units 09/04/22 09/04/22 09/04/22 12:25 12:25 12:25 WBC (4.4-10.8) 10^3/uL 15.41 H RBC (3.93-5.22) 10^6/uL 4.40 Hgb (11.2-15.7) g/dL 13.6 Hct (36.0-46.0) % 40.1 MCV (80-95) fL 91 MCH (27.0-33.0) pg 30.9 MCHC (32.0-36.0) % 33.9 RDW (11.7-14.6) % 14.7 H Plt Count (130-400) 10^3/uL 241 MPV (8.0-11.0) fL 9.2 Immature Gran % See Differential Neutrophils % 79.0 Band Neutrophils % 16 Lymphocytes % 1.0 Monocytes % 4.0 Eosinophils % 0.0 Basophils % 0.0 Nucleated RBC % (0.0-0.3) % 0.0 Absolute Neutrophils (1.2-6.7) 10^3/uL 14.64 H Absolute Lymphocytes (1.2-3.4) 10^3/uL 0.15 L Absolute Monocytes (0.1-0.8) 10^3/uL 0.62 Absolute Eosinophils (0.0-0.7) 10^3/uL 0.00 Absolute Basophils (0.0-0.2) 10^3/uL 0.00 RBC Morphology Normal ESR (0-30) mm/hr PT (9.3-11.0) sec INR (0.9-1.1) APTT (21.5-31.9) sec VBG pH (7.31-7.41) VBG pCO2 (41-51) mmHg VBG pO2 mmHg VBG HCO3 (23-28) mmol/L VBG Total CO2 (24-29) mmol/L VBG O2 Saturation % VBG Base Excess (-2-3) mmol/L VBG Lactate (0.6-1.4) mmol/L 1.3 Sodium (136-145) mmol/L 135 L Potassium (3.5-5.1) mmol/L 3.8 Chloride (98-107) mmol/L 99 Carbon Dioxide (21.0-32.0) mmol/L 28.3 Anion Gap (3-11) mmol/L 7.7 BUN (7-18) mg/dL 15 Creatinine (0.55-1.02) mg/dL 0.8 Est GFR (CKD-EPI 2020) (mL/min/1.73m2) 81.21 Glucose (74-106) mg/dL 93 Calcium (8.5-10.1) mg/dL 8.6 Magnesium (1.8-2.4) mg/dL 1.7 L Total Bilirubin (0.2-1.0) mg/dL 0.6 AST (15-37) U/L 35 ALT (14-59) U/L 73 H Alkaline Phosphatase (46-116) U/L 103 Troponin I (<or=60) ng/L < 50 Total Protein (6.4-8.2) g/dL 7.0 Albumin (3.4-5.0) g/dL 1.8 L Range/Units 09/04/22 09/04/22 09/04/22 12:25 12:25 12:25 WBC (4.4-10.8) 10^3/uL RBC (3.93-5.22) 10^6/uL Hgb (11.2-15.7) g/dL Hct (36.0-46.0) % MCV (80-95) fL MCH (27.0-33.0) pg MCHC (32.0-36.0) % RDW (11.7-14.6) % Plt Count (130-400) 10^3/uL MPV (8.0-11.0) fL Immature Gran % Neutrophils % Band Neutrophils % Lymphocytes % Monocytes % Eosinophils % Basophils % Nucleated RBC % (0.0-0.3) % Absolute Neutrophils (1.2-6.7) 10^3/uL Absolute Lymphocytes (1.2-3.4) 10^3/uL Absolute Monocytes (0.1-0.8) 10^3/uL Absolute Eosinophils (0.0-0.7) 10^3/uL Absolute Basophils (0.0-0.2) 10^3/uL RBC Morphology ESR (0-30) mm/hr 94 H PT (9.3-11.0) sec 10.3 INR (0.9-1.1) 1.0 APTT (21.5-31.9) sec 28.3 VBG pH (7.31-7.41) 7.42 H VBG pCO2 (41-51) mmHg 43 VBG pO2 mmHg 29 VBG HCO3 (23-28) mmol/L 28 VBG Total CO2 (24-29) mmol/L 25 VBG O2 Saturation % 55 VBG Base Excess (-2-3) mmol/L 4 H VBG Lactate (0.6-1.4) mmol/L Sodium (136-145) mmol/L Potassium (3.5-5.1) mmol/L Chloride (98-107) mmol/L Carbon Dioxide (21.0-32.0) mmol/L Anion Gap (3-11) mmol/L BUN (7-18) mg/dL Creatinine (0.55-1.02) mg/dL Est GFR (CKD-EPI 2020) (mL/min/1.73m2) Glucose (74-106) mg/dL Calcium (8.5-10.1) mg/dL Magnesium (1.8-2.4) mg/dL Total Bilirubin (0.2-1.0) mg/dL AST (15-37) U/L ALT (14-59) U/L Alkaline Phosphatase (46-116) U/L Troponin I (<or=60) ng/L Total Protein (6.4-8.2) g/dL Albumin (3.4-5.0) g/dL Sign Out <PREM Soriano - Last Filed: 09/18/22 05:09> Sign Out Data: Sign Out Comment: Care transition to Jaciel Pyle NP with consultation with dermatology pending. Patient here with erythematous rash to bilateral legs, arms with open blisters on both upper extremities. Consulted with oncology who continues to follow patient for her lung cancer, managed on immunomodulatory therapy, who recommended dermatology evaluation for possible SJS versus TEN. Last updated by Shania Grande PA at 09/04/22 16:25
[2022-09-04 13:28] LABS: Procalcitonin 0.2 ng/mL
--- NOTE | 2022-09-04 13:33 | NUR.NOTE ---
Daughter in room at this time. Daughter states the rash is from the cancer treatment. Cancer is all in body except lung, no treatment at this time.
[2022-09-04 13:34] LABS: C-Reactive Protein > 25.00 mg/dL (0.0-0.3)
[2022-09-04 14:35] LABS: Bilirubin Negative (Negative); Blood Trace-intact (Negative); Clarity Clear (Clear); Glucose Negative (Negative); Ketones Negative (Negative); Leukocyte Esterase Negative (Negative); Nitrite Negative (Negative); Specific Gravity 1.015 (1.005-1.025); Urobilinogen 0.2 mg/dL (Up to 0.2); pH 6.5 (5-8)
[2022-09-04 14:45] LABS: Bacteria Negative HPF (Negative); C & S Indicated? No; Casts Negative LPF (Negative); Crystals Negative HPF (Negative); Epithelial Cells Rare HPF (Negative); Mucus Negative (Negative); RBC 0-2 HPF (0-2); WBC 0-2 HPF (0-5)
[2022-09-04 15:49] LABS: Troponin I < 50 ng/L (<or=60)
[2022-09-04] MEDS: Normal Saline 1,000 ML 150 ML IV (18:16)
[2022-09-04] MEDS: Magnesium Oxide 400 MG TAB PO (18:16)
[2022-09-04] MEDS: methylPREDNISolone SUCC 125 MG VIAL IVP (18:16)
--- NOTE | 2022-09-04 23:51 | HPE_ITS ---
Date of service: 09/04/22 Time of Service: 23:51 Assessment and Plan Assessment and plan (1) Rash and nonspecific skin eruption: Status: Acute Assessment and plan: Rash appears to be vasculitic but it may be related to her chemotherapy drugs (pembrolizumab) or may be skin manifestation of her NSCC of her lung. Pembrolizumab has 24 to 30% incidence of rash. For now I will continue her current prednisone dose, use topical antipuritics and ask general surgery to consider skin biopsy. the day hospitalist may wish to discuss her care w/ her oncologist and send pictures to see if he/she has seen similar rashes w/ this drug. (2) Weakness: Status: Acute Assessment and plan: consult P.T. to evaluate/initiate exercises (3) Primary malignant neoplasm of right lower lobe of lung: Status: Acute (4) Brain metastases: Status: Acute History of Present Illness History of Present Illness Chief Complaint: rash, confusion Narrative: 67-year-old female with metastatic adenocarcinoma of the lung with osseous metastasis to the right hip status post right hip arthroplasty 10/21/2020 for severe pain and impending fracture was received first-line palliative systemic therapy with carboplatin/pemetrexed/pembrolizumab. She is status post surgical resection to her left frontal metastasis in August 2021. In December 2021 she was found to have 3 new subcentimeter lesions and was set up to do [place] [facility] [place] patient wintered over in [place] where they performed whole body radiation paul atment completed February 2021. Last note in her chart is from an oncology consultation July 03, 2022 indicated they were going to continue Pembro alone and restage her after that cycle. At which point they will decide whether to resume pemetrexed. Patient was brought in the emergency department by her daughter who stated that the patient went to the bathroom this morning and started urinate on the floor and slipped in the urine landing on her bottom not striking her head not associate with a loss of consciousness. She developed her current rash about 2 weeks ago and was being treated w/ increased dose of corticosterids and topicals. Family was concerned that the rash is getting worse and w/ the patient becoming more confused they were concerned that her cancer was worsening or she was having reaction to her immunologics. Work up in the ED included: Routine labs including CBC that demonstrated white count of 15,400 normal H&H 13.6 hematocrit 40.1 normal platelet count returned 41,000. Is a leftward shift in her white cell count. Blood lactate was normal at 1.3. VBG was normal. Chemistry panel was essentially normal except for low magnesium 1.7 minimally elevated ALT of 73 troponin I was negative x2 sets. However CRP was elevated at greater than 25 her albumin is low at 1.8 procalcitonin 0.2. ESR is elevated at 94. ED provider attempted to have a discussion with dermatology from [facility] but because pictures of her rash could not be uploaded to [facility]'s EMR the computer tape librarian could not or would not look at the pictures even though the ED provider offered to take a photo and send it via his phone. Because of her increased confusion CT scan of her head was performed to make sure she had no evidence of increased intracranial pressure from her cancer. This showed prior radiation treatment to her left frontal lobe but no acute abnormalities. Chest x-ray was done and showed right inferior hilar mass but no evidence for pneumonia or effusions. When the skin lesions had a blister that broke open and a wound culture was obtained showed rare white blood cells and few gram-positive cocci. Blood cultures were obtained. Although a dose of vancomycin was given in the emergency department it was decided not to admit her on antibiotics but wait to see what her blood cultures grow and see if she spikes any fever. Her leukocytosis could be explained by the recent increased dose of her prednisone of 30 mg daily. It suspected that she either has a vasculitic process or possibly a reaction to her chemotherapy drugs. Review of Systems Unobtainable due to mental condition (Patient is unable to give any details due to her dementia) PFSH All Active Problems Weakness (Acute) Rash and nonspecific skin eruption (Acute) Primary malignant neoplasm of right lower lobe of lung (Acute) Brain metastases (Acute 08/17/21) Bilateral lower extremity edema (Acute) Palliative care patient (Acute) Hyponatremia (Acute) Memory loss due to medical condition (Acute) Secondary malignant neoplasm of bone (Acute) Fall (Acute 10/20/20) Lung cancer, lower lobe (Acute) non-small cell,Stage IV Lytic bone lesion of hip (Acute) Right thigh pain (Acute) Surgical History S/P hip hemiarthroplasty (10/21/20[place] [facility] [place] Family History Mother Hypertension Heart disease Maternal Grandmother Stroke Father Myeloma Paternal Grandmother Cancer ovarian Social History Smoking/Tobacco Use Status: Current every day Tobacco Type: cigarettes and e- cigarettes Tobacco: How many years used: 30 Smoking risk assessment performed?: Yes Alcohol Intake: current Alcohol Intake frequency: 0-2 drinks per day Alcohol type: wine Drug use: Rarely Substance use type: does not use Adopted: No Caregiver/Support person: No Household members: children and other Details: Moved from [place] 2019 helps daughter on her farm Housing: house Number of Children: 3 number of grandchildren: 9 Communication Needs: None Education Level: master's degree Do you need help understanding health information?: Rarely 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 Pets and animals: Yes (1) Pets and animals: dog(s) Sexually active: No Do you think of yourself as: straight/heterosexual Current gender identity: female What is your relationship status?: How often do you talk on the phone with friends or family?: once per week Do you belong to any clubs or organized social groups?: no Panel score (0-1 are the most socially isolated patients): 0 What type of physical activity do you participate in: regular exercise Duration: 45-60 minutes/day Frequency: 5-6 times per week Lana/Roman Catholic: [employer] Special lana needs: No Seatbelt use: always Helmet use: Yes Helmet use: always Drive intox or ride w/intox straight truck driver: No Do you feel safe at home: Yes Do you feel safe in your relationship?: Yes Female Reproductive History Menstrual Menopause type: natural History History 3 Para 3 Hx # Term Pregnancies Multiple births Hx # Pregnancies Ectopic pregnancies AB induced Hx Number of Living Children AB spontaneous Meds Allergies and Home Medications Allergies Allergy/AdvReac Type Severity Reaction Status Date / Time No Known Allergies Allergy Verified 09/01/22 11:36 Home Medications Medication Instructions Recorded Confirmed Type multivitamin (Daily Multi-Vitamin 1 tab PO DAILY 03/11/19 09/04/22 History tablet) folic acid 1 mg tablet 1 mg PO DAILY 01/20/21 09/04/22 History omeprazole 20 mg capsule,delayed 20 mg PO DAILY 01/20/21 09/04/22 History release ondansetron 4 mg disintegrating 4 mg PO Q8H PRN nausea and 01/20/21 09/04/22 Rx tablet vomiting #30 tabs prochlorperazine maleate 10 mg 10 mg PO Q6H PRN 01/20/21 09/04/22 History tablet cetirizine 10 mg tablet (All Day 10 mg PO DAILY PRN 03/11/21 09/04/22 History Allergy (cetirizine)) naloxone 4 mg/actuation nasal 1 spray intranasal Q2-3M PRN 06/08/21 09/04/22 Hi story spray (Narcan) dexamethasone 4 mg tablet See Rx Instructions PO .COMPLEX 08/17/21 09/04/22 History gabapentin 100 mg capsule 200 - 300 mg PO TID #300 caps 08/26/21 09/04/22 Rx sertraline 50 mg tablet 50 mg PO DAILY #30 tabs 10/28/21 09/04/22 Rx benzonatate 100 mg capsule 100 - 200 mg PO TID PRN cough #30 09/01/22 09/04/22 Rx caps dronabinol 5 mg capsule (Marinol) 5 mg PO BID 09/01/22 09/04/22 History prednisone 10 mg tablet 30 mg PO DAILY 09/04/22 09/04/22 History triamcinolone acetonide 0.1 % 2 applic topical 4-8XD 09/04/22 09/04/22 History topical cream Exam Narrative Exam Narrative: Thin elderly white female who is alert she is oriented only to her name she devendra ws she is in the hospital but cannot tell me the name of the hospital nor the city nor could she can be in the month or year. When I start examining her I mention about the right hip replacement she is seem to have no recollection of that. HEENT is remarkable for reddened scaly patchy area of skin over the right forehead that looks to be consistent with a basal cell carcinoma. She also has a papular lesion on her lip on the left lower lip. Oropharynx no exudate but mouth does appear to be dry Neck is supple no adenopathy no palpable thyromegaly normal carotid pulses no bruits no JVD Lungs are clear to auscultation Heart is regular with occasional extrasystolic beat no murmur rub Abdomen is scaphoid soft and nontender no palpable masses no bruits normal bowel sounds Extremities no peripheral cyanosis or edema she has normal range of motion and strength. Skin patient has a petechial looking rash over her inner thigh extends from the knee up to the groin and a more confluent area of redness along the lateral aspect of both thighs. Over the left lateral thigh there has been a blister that apparently had opened up and from which the ED had obtained a superficial culture and Gram stain. I could not appreciate adenopathy in her groin nor did she have any adenopathy in her supraclavicular or axillary areas. Did not see a rash over the abdomen or her back. Rash seems to be primarily over the lower extremities bilaterally and appears to be consistent with a vasculitic process in the has a petechial pattern but there are some areas where the redness has a confluence. Results Labs 09/04/22 12:25 09/04/22 12:25 Labs: Laboratory Results - last 24 hr 09/04/22 09/04/22 09/04/22 12:25 12:25 12:25 WBC 15.41 H RBC 4.40 Hgb 13.6 Hct 40.1 MCV 91 MCH 30.9 MCHC 33.9 RDW 14.7 H Plt Count 241 MPV 9.2 Immature Gran % See Differential Neutrophils % 79.0 Band Neutrophils % 16 Lymphocytes % 1.0 Monocytes % 4.0 Eosinophils % 0.0 Basophils % 0.0 Nucleated RBC % 0.0 Absolute Neutrophils 14.64 H Absolute Lymphocytes 0.15 L Absolute Monocytes 0.62 Absolute Eosinophils 0.00 Absolute Basophils 0.00 RBC Morphology Normal ESR PT INR APTT VBG pH VBG pCO2 VBG pO2 VBG HCO3 VBG Total CO2 VBG O2 Saturation VBG Base Excess VBG Lactate 1.3 Sodium 135 L Potassium 3.8 Chloride 99 Carbon Dioxide 28.3 Anion Gap 7.7 BUN 15 Creatinine 0.8 Est GFR (CKD-EPI 2020) 81.21 Glucose 93 Calcium 8.6 Magnesium 1.7 L Total Bilirubin 0.6 AST 35 ALT 73 H Alkaline Phosphatase 103 Troponin I < 50 C-Reactive Protein Total Protein 7.0 Albumin 1.8 L Procalcitonin Urine Color Urine Clarity Urine pH Ur Specific [place] Urine Protein Urine Ketones Urine Blood Urine Nitrite Urine Bilirubin Urine Urobilinogen Ur Leukocyte Esterase Urine RBC Urine WBC Ur Epithelial Cells Urine Crystals Urine Bacteria Urine Casts Urine Mucus Ur Culture Indicated? Urine Glucose 09/04/22 09/04/22 09/04/22 12:25 12:25 12:25 WBC RBC Hgb Hct MCV MCH MCHC RDW Plt Count MPV Immature Gran % Neutrophils % Band Neutrophils % Lymphocytes % Monocytes % Eosinophils % Basophils % Nucleated RBC % Absolute Neutrophils Absolute Lymphocytes Absolute Monocytes Absolute Eosinophils Absolute Basophils RBC Morphology ESR PT 10.3 INR 1.0 APTT 28.3 VBG pH 7.42 H VBG pCO2 43 VBG pO2 29 VBG HCO3 28 VBG Total CO2 25 VBG O2 Saturation 55 VBG Base Excess 4 H VBG Lactate Sodium Potassium Chloride Carbon Dioxide Anion Gap BUN Creatinine Est GFR (CKD-EPI 2020) Glucose Calcium Magnesium Total Bilirubin AST ALT Alkaline Phosphatase Troponin I C-Reactive Protein > 25.00 H Total Protein Albumin Procalcitonin Urine Color Urine Clarity Urine pH Ur Specific [place] Urine Protein Urine Ketones Urine Blood Urine Nitrite Urine Bilirubin Urine Urobilinogen Ur Leukocyte Esterase Urine RBC Urine WBC Ur Epithelial Cells Urine Crystals Urine Bacteria Urine Casts Urine Mucus Ur Culture Indicated? Urine Glucose 09/04/22 09/04/22 09/04/22 12:25 12:25 14:30 WBC RBC Hgb Hct MCV MCH MCHC RDW Plt Count MPV Immature Gran % Neutrophils % Band Neutrophils % Lymphocytes % Monocytes % Eosinophils % Basophils % Nucleated RBC % Absolute Neutrophils Absolute Lymphocytes Absolute Monocytes Absolute Eosinophils Absolute Basophils RBC Morphology ESR 94 H PT INR APTT VBG pH VBG pCO2 VBG pO2 VBG HCO3 VBG Total CO2 VBG O2 Saturation VBG Base Excess VBG Lactate Sodium Potassium Chloride Carbon Dioxide Anion Gap BUN Creatinine Est GFR (CKD-EPI 2020) Glucose Calcium Magnesium Total Bilirubin AST ALT Alkaline Phosphatase Troponin I C-Reactive Protein Total Protein Albumin Procalcitonin 0.2 Urine Color Yellow Urine Clarity Clear Urine pH 6.5 Ur Specific [place] 1.015 Urine Protein Trace H Urine Ketones Negative Urine Blood Trace-intact H Urine Nitrite Negative Urine Bilirubin Negative Urine Urobilinogen 0.2 Ur Leukocyte Esterase Negative Urine RBC 0-2 Urine WBC 0-2 Ur Epithelial Cells Rare Urine Crystals Negative Urine Bacteria Negative Urine Casts Negative Urine Mucus Negative Ur Culture Indicated? No Urine Glucose Negative 09/04/22 15:20 WBC RBC Hgb Hct MCV MCH MCHC RDW Plt Count MPV Immature Gran % Neutrophils % Band Neutrophils % Lymphocytes % Monocytes % Eosinophils % Basophils % Nucleated RBC % Absolute Neutrophils Absolute Lymphocytes Absolute Monocytes Absolute Eosinophils Absolute Basophils RBC Morphology ESR PT INR APTT VBG pH VBG pCO2 VBG pO2 VBG HCO3 VBG Total CO2 VBG O2 Saturation VBG Base Excess VBG Lactate Sodium Potassium Chloride Carbon Dioxide Anion Gap BUN Creatinine Est GFR (CKD-EPI 2020) Glucose Calcium Magnesium Total Bilirubin AST ALT Alkaline Phosphatase Troponin I < 50 C-Reactive Protein Total Protein Albumin Procalcitonin Urine Color Urine Clarity Urine pH Ur Specific [place] Urine Protein Urine Ketones Urine Blood Urine Nitrite Urine Bilirubin Urine Urobilinogen Ur Leukocyte Esterase Urine RBC Urine WBC Ur Epithelial Cells Urine Crystals Urine Bacteria Urine Casts Urine Mucus Ur Culture Indicated? Urine Glucose Last Vital Signs Temp 36 C L 09/04/22 21:22 Pulse 81 09/04/22 21:22 Resp 20 09/04/22 21:22 BP 93/60 L 09/04/22 21:22 Pulse Ox 93 09/04/22 21:22 Time Spent Time spent with Patient: 55-74 minutes Time was spent: preparing to see the patient(eg.review tests), ordering medications,tests, procedures, referring, communicating with other health insurance healthcare consultant (ED provider), indepentently interpreting results, counseling the patient and care coordination
[2022-09-05 05:23] VITALS: BP 106/68; PULSE 89; RESP 18; TEMP 36; O2SAT 94
[2022-09-05 06:23] LABS: Abs Immature Grans 0.74 10^3/uL (0.0-0.06); Absolute Basophil Count 0.06 10^3/uL (0.0-0.2); Absolute Neutrophil Count 18.54 10^3/uL (1.2-6.7); Basophils % 0.3; HCT 38.4 % (36.0-46.0); HGB 12.9 g/dL (11.2-15.7); Immature Grans % 3.7; MCH 30.4 pg (27.0-33.0); MCHC 33.6 % (32.0-36.0); MCV 91 fL (80-95); MPV 9.5 fL (8.0-11.0); Monocytes % 0.8; Neutrophils % 93.2; Platelet Count 242 10^3/uL (130-400); RBC 4.24 10^6/uL (3.93-5.22); RDW 14.9 % (11.7-14.6); RDW-SD 49.3 fL; WBC 19.89 10^3/uL (4.4-10.8)
[2022-09-05 06:28] LABS: Absolute Monocyte Count 0.16 10^3/uL (0.1-0.8)
[2022-09-05 06:42] LABS: Anion Gap 8.4 mmol/L (3-11); BUN 11 mg/dL (7-18); CO2 23.6 mmol/L (21.0-32.0); CREATININE 0.8 mg/dL (0.55-1.02); Calcium 7.5 mg/dL (8.5-10.1); Chloride 105 mmol/L (98-107); Estimated GFR 81.21 (mL/min/1.73m2); Glucose 133 mg/dL (74-106); Magnesium 1.8 mg/dL (1.8-2.4); Potassium 3.6 mmol/L (3.5-5.1); Sodium 137 mmol/L (136-145)
[2022-09-05] MEDS: Omeprazole 20 MG CAPCR PO (07:46)
[2022-09-05] MEDS: predniSONE 10 MG TAB 30 MG PO (07:47)
[2022-09-05] MEDS: Gabapentin 100 MG CAP 200 MG PO ×3 (07:49→20:32)
[2022-09-05] MEDS: Folic Acid 1 MG TAB PO (07:49)
[2022-09-05] MEDS: Sertraline 50 MG TAB PO (07:50)
[2022-09-05] MEDS: Multivitamin TAB 1 TAB PO (07:50)
[2022-09-05] MEDS: Enoxaparin 30 MG/0.3 ML SYR SC (07:51)
[2022-09-05 07:56] VITALS: BP 112/73; PULSE 73; RESP 16; TEMP 36.6; O2SAT 94
--- NOTE | 2022-09-05 08:58 | PT.INIE ---
PT Notes Visit Reasons: delirium,falls,wkness,metastatic lung ca,drug rash Inpatient Physical Therapy Evaluation Date: 09/05/22 Referring Doctor: Dr. Canales PT Orders: PT CONSULT: Fall risk assessment Precautions: fall, standard Patient Profile/Admitting Diagnosis: Patient admitted 09/04/22 after presenting to ED following a fall at home. She is chronically ill due to metastatic lung CA, currently undergoing immunotherapy. Currently being treated for drug rash that developed approx 2 weeks ago. Has dementia at baseline. Social History/Home Situation: Lives with daughter, who is her primary caregiver. States that she normally ambulates independently, and does not manage stairs. Equipment Owned/DME: Unable to identify Subjective: Leticia is agreeable to getting up and walking. States that she has not fallen before yesterday, that she is aware of. Admits that her memory is poor, so she's not sure. Normally walks unassisted, but states that her living space is small, and she always has something to hang onto. Objective: General Observation: No lines. Appears frail. Mental Status: Alert. Pleasant and cooperative. Unable to provide clear history, and struggles with word finding. Pain: denies ROM: Right Upper Extremity: Grossly WFL Left Upper Extremity: Grossly WFL Right Lower Extremity: AROM allows hip flexion to 110*, knee motion 0-120*. Ankle motion WFL. Left Lower Extremity: AROM allows hip flexion to 110*, knee motion 0-120*. Ankle motion WFL. Strength: Right Upper Extremity: Grossly WFL Left Upper Extremity: Grossly WFL Right Lower Extremity: Hip flexion 4-/5. Quads 4/5. HS 4-/5. Ankle DF 4/5. Left Lower Extremity: Hip flexion 4-/5. Quads 4/5. HS 4-/5. Ankle DF 4-/5. Bed Mobility/Transfers: supine-sit: independent sit-stand: supervision stand-sit: supervision Gait: Ambulates 20'x2 with FWW, CGA. Able to ambulate 6' without AD, although with (+) antalgia and reaching for furniture; requires min A at the trunk during unassisted ambulation. Balance: 4-Position Balance Test: 02/22 Small KRISSY: 10 seconds *requires assistance to attain position, then able to maintain with SBA Partial Tandem: 3 seconds Full Tandem: 0 seconds Single Leg Stance: 0 seconds Static Sitting: good Dynamic Sitting: good Static Standing: good Dynamic Standing: fair Special Tests: Mobility Limitations Standardized Measure [facility] AM-PAC 6 clicks Basic Mobility Inpatient Short Form: Raw Score: 21 CMS Score: 29% impairment Informed Consent/Education: Patient instructed in purpose of PT consult and plan of care. Assessment: Patient is a 67 year old female referred to physical therapy services for fall risk assessment. Patient presents with gait and balance impairments related to chronic illness, as demonstrated by the following impairment level findings: 1. decreased LE strength 2. gait impairments 3. balance impairments 4. recent history of fall Impairments are contributing to the following functional limitations: 1. gait impairments requiring AD for short distance ambulation 2. high risk for future falls Patient is assessed as Moderate [id number] complexity based on the following: History: Patient is a chronically ill 67 year old female, presenting with mobility impairments after fall at home. She is being treated for lung cancer with brain and bony mets, and has associated gait and balance impairments. She will require utilization of FWW upon discharge. Will also benefit from initiation of PT to maximize safety and mobility in the home, as well as assess for any equipment needs or home modifications due to patient's chronic illness. Will initiate PT in acute care setting to maximize safety and mobility, however she is safe for discharge home with FWW and assistance from family once medically stable. Examination: functional limitations as noted above Presentation: evolving Decision Making: moderate complexity Goals: Goals X1 week 1. Supine-Sit : independent 2. Sit-Supine : independent 3. Sit-Stand : independent 4. Stand-Sit : independent 5. Bed-Chair : supervision with FWW 6. Chair-Bed : supervision with FWW 7. Gait : supervision with FWW x 50' Plan of Care/Treatment Plan: 1-2x/day, 7 days/week x 1 week. Plan of care has been reviewed with the FAMILY AND CONSUMER SCIENCES PROFESSOR providing the service under Physical Therapy direction. Initiate Physical Therapy intervention for strengthening, bed mobility, transfers, gait, stairs, balance training, use of assistive device. *Focus on balance retraining DISCHARGE RECOMMENDATIONS: Home with services ([facility]) TREATMENT CODE/TIME: 2720-6301 ([id number]) Ela Whiting, PT, DPT [facility] All Active Problems Weakness (Acute) Rash and nonspecific skin eruption (Acute) Primary malignant neoplasm of right lower lobe of lung (Acute) Brain metastases (Acute 08/17/21) Bilateral lower extremity edema (Acute) Palliative care patient (Acute) Hyponatremia (Acute) Memory loss due to medical condition (Acute) Secondary malignant neoplasm of bone (Acute) Fall (Acute 10/20/20) Lung cancer, lower lobe (Acute) non-small cell,Stage IV Lytic bone lesion of hip (Acute) Right thigh pain (Acute) Surgical [place] [facility] [place]
--- NOTE | 2022-09-05 09:13 | PDOC.CMIN ---
Date of service: 09/05/22 Time of Service: 09:13 Care Management Initial Assmt Initial Assessment REASON FOR HOSPITALIZATION:: Rash and nonspecific skin eruption, Weakness PREVIOUS FUNCTIONAL STATUS/SOCIAL/FAMILY SUPPORTS:: Evon lives in [place] on a farm with her Daughter Jud, she spends winter months in [place] with her son Kenny. 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 She is followed by Oncology for Metastatic brain cancer and requires assistance with her ADL's and KEL's. She has not driven in 2 years as a result of her health decline. Jud provides her transportation and is her primary caregiver. Evon is also followed by Palliative Care. CURRENT FUNCTIONAL STATUS:: Evon was lying in bed sleeping when CM attempted to meet with her. CM spoke with her daughter/caregiver Jud via phone. ADVANCE DIRECTIVES:: [facility] on file, Jud Meadows (Daughter), alt agent is Kenny Cortez (Son) Has patient been provided with info about the portal/API?: Yes Did the patient sign up for the portal?: Yes (Prior to admission) CODE STATUS:: Full Code INSURANCE COVERAGE / FINANCIAL ISSUES:: BC/BS out of State Medicare CURRENT HOME/COMMUNITY SERVICES/EQUIPMENT:: Palliative Care Patient FWW PRIMARY CARE PHYSICIAN:: Dr. Garcia POTENTIAL DISCHARGE NEEDS:: Discharge plan of care Evaluations for further needs New [facility] services PATIENT/FAMILY EDUCATION NEEDS:: Review discharge instructions, limitations and plan to follow up with community providers. Discuss ask me three. ANTICIPATED BARRIERS TO DISCHARGE:: None identified TRANSPORTATION:: Via private vehicle with daughter Jud PLAN:: Anticipate, Evon will discharge home with New [facility] PT (RN/OT, if indicated) and resumption of caregiver support. She will follow up with community providers (PCP, Oncology, Palliative, etc) and her discharge plan of care as instructed. She will transport via private vehicle with daughter. PFSH All Active Problems (Updated 09/05/22 @ 15:43 by Roopa Hauser NP) Cough (Acute) Advance care planning (Acute) Weakness (Acute) Rash and nonspecific skin eruption (Acute) Primary malignant neoplasm of right lower lobe of lung (Acute) Brain metastases (Acute 08/17/21) Bilateral lower extremity edema (Acute) Palliative care patient (Acute) Hyponatremia (Acute) Memory loss due to medical condition (Acute) Secondary malignant neoplasm of bone (Acute) Fall (Acute 10/20/20) Lung cancer, lower lobe (Acute) non-small cell,Stage IV Lytic bone lesion of hip (Acute) Right thigh pain (Acute) Surgical History S/P hip hemiarthroplasty (10/21/20) [facility] [place] Right Family History Mother Hypertension Heart disease Maternal Grandmother Stroke Father Myeloma Paternal Grandmother Cancer ovarian Social History Smoking/Tobacco Use Status: Current every day Tobacco Type: cigarettes and e-cigarettes Tobacco: How many years used: 30 Smoking risk assessment performed?: Yes Alcohol Intake: current Alcohol Intake frequency: 0-2 drinks per day Alcohol type: wine Drug use: Rarely Substance use type: does not use Adopted: No Caregiver/Support person: No Household members: children and other Details: Moved from [place] 2018 helps daughter on her farm Housing: house Number of Children: 3 number of grandchildren: 9 Communication Needs: None Education Level: master's degree Do you need help understanding health information?: Rarely 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 Pets and animals: Yes (1) Pets and animals: dog(s) Sexually active: No Do you think of yourself as: straight/heterosexual Current gender identity: female What is your relationship status?: How often do you talk on the phone with friends or family?: once per week Do you belong to any clubs or organized social groups?: no Panel score (0-1 are the most socially isolated patients): 0 What type of physical activity do you participate in: regular exercise Duration: 45-60 minutes/day Frequency: 5-6 times per week Lana/Episcopalian: Sabianism Special lana needs: No Seatbelt use: always Helmet use: Yes Helmet use: always Drive intox or ride w/intox local tanker truck driver: No Do you feel safe at home: Yes Do you feel safe in your relationship?: Yes Female Reproductive History Menstrual Menopause type: natural History History 3 Para 3 Hx # Term Pregnancies Multiple births Hx # Pregnancies Ectopic pregnancies AB induced Hx Number of Living Children AB spontaneous
[2022-09-05] MEDS: Triamcinolone 0.1% CR 15 GM TUBE TP ×2 (09:20→20:35)
[2022-09-05] MEDS: Dronabinol 2.5 MG CAP 5 MG PO ×2 (11:42→16:13)
--- NOTE | 2022-09-05 13:43 | PT.INTREAT ---
PT Notes Visit Reasons: delirium,falls,wkness,metastatic lung ca,drug rash Inpatient Physical Therapy Treatment Note [facility] Date: 09/05/2022 PRECAUTIONS:Activty as tolerated. Standard precautions. SUBJECTIVE: Denies pain. Needed to use bathroom to void urine before the walk. Daughter Nohemy present in room and wondering what the plan is regarding her mom's care. YARD SWITCH OPERATOR Dodie Hauser came in to talk with daughter while PT held session with patient. Denies headache, chest pain, and lightheadedness throughout session. Daughter states that she is the charger tester ceregiver for her mother. DAughter says that patient has a 4WW, FWW, and wheelchair at home. OBJECTIVE: Resting in bed. Nurse Alison and ROTARY PEEL OVEN TENDER present along with patient's daughter. Patient with pre-existing dementia and limited short-term memory. PAIN: Denies BED MOBILITY/TRANSFERS Supine-sit: stand by assist with HOB at 30 degrees, moderate verbal cueing needed due to short-term memory loss Sit-supine: stand by assist Sit-stand: supervision with FWW Stand-sit: supervision with FWW Bed-Chair: supervision with FWW Chair-bed: supervision with FWW GAIT Assistive Device: FWW with wheelchair follow of Nurse Alison Weight bearing: FWB Assist: stand by assist Distance: 100 feet + 100 feet Deviation: Decreased coral, Trunk lean to L. Increased swing time on L. Mild SOB needinf 1 seated rest. THEREX: Chest expansion exercises with DBE x 5 AKTC x 10 Chest expansion exercises with DBE x 5 Bridging x 3 ASSESSMENT: Needs cueing to keep walker close to her at all times a she tends to leave it to either sit down on chair or to use toilet. It also prevents undue fatigue. Continue mobility progression as tolerated. PLAN: 1-2x/day 7x/week for functional obility progression, graduated strengtening, and balance training. TREATMENT CODE/TIME: 10906 x 20 minutes, 85556 x 10 minutes beginning at 13:12 PM.
[2022-09-05] MEDS: Benzonatate 100 MG CAP 200 MG PO (14:10)
--- NOTE | 2022-09-05 15:18 | PCNE_ITS ---
Date of service: 09/05/22 Time of Service: 13:00 History of Present Illness Narrative: Ms. Barnard is a 67 y/o F currently inpt at [facility] 2/2 rash w/undetermined cause and fall 2/2 weakness; PMHx sig for primary lung cancer w/brain, bone and soft tissue metastasis and dementia; present today daughter and healthcare agent [facility] course: presented to [facility] ED on 09/04 after a fall in home, rash and increased confusion; labs w/increased WBC, potentially a/w steroid, ESR/CRP elevated, CT w/no acute findings; started on IV vanc; [facility] [place] consider rash potential cause as drug related, recommend biopsy given ddx, f/u outpatient; admitted inpatient for ongoing observation and work up given increased weakness and confusion w/co-occuring worsening rash; PT consult recommends d/c home w/HH PT; cultures pending; surgical consulted for biopsy potentially today. per inpt staff: Evon has remained disoriented and mildly today, decreased appetite, ADLs with cueing and redirection, independent toileting incontinent of urine and bowels, able to walk with assistance with walker. Rash over groin, bilateral arms and legs, elbows, hands and back, she does not seem to be bothere d by rash with pain or itchiness symptoms. Evon started having rash-like symptoms around a week ago, topical steroid creams were working initially on some of rash spots, including head and back, however new spots Erupting, with worsening blisters, now on arms and legs, elbow, new spot on face appeared last night in ED. denies pain or itching, denies history of this occurring before . Preference to have work-up ongoing to determine etiology and potential correct treatment Evon continues with immunotherapy (pembrolizumab), is [place] [facility], is currently on any break from chemotherapy to see if she can regain strength, energy and stamina. She has gained at least 13 pounds during this time. She did have pain control improvement with decreased tumor sizes, per daughter all tumors have shrunk, continues with goals for palliative treatments for life prolonging, keeping disease progression down and maintaining quality of life. Despite her memory loss after whole brain radiation she has maintained a joyful and happy outlook on life, no longer experiences anxiety and fear, from suzie tipton's perspective her quality of life is better than it was before. Initially her memory was worse after radiation completed on February 2022, however since then she has been stable, continues with no short-term memory, waiting for neurology consult from [facility], willing to stay local and see neurology at [facility] Has had a cough since cold 4 weeks ago with postnasal drip, was started on benzonatate last week with good effect, would like this restarted again Lives at home with Jud, daughter and caregiver, relocating to [place] for winter months with son and second caregiver healthcare agent Ishan. She continues to receive treatments while she was down there. She continues to get up and walk daily, lives a largely sedentary lifestyle, but always has, they have a wheelchair for her as needed, continues to make the trips at home Previously completed advanced directive, aware that it is not on file, unsure of where it is, she may have a copy will bring it in. Reviewed with Evon prior to cancer treatments starting due to anticipated memory changes. Jud reports pt did want CPR performed, aware of risks, would want them to try anything to keep her alive, however if she were to be intubated and not aware of surroundings, or unaware of surroundings at baseline they should consider pulling the plug , Evon would want her sister to do this so children did not have to make this decision. She would want trial intubation, she would want a feeding tube, would want this reassessed with goals of care, we does want antibiotics and IV fluids. Healthcare agent on file Jud and Ishan listed Evon is participating in physical therapy throughout most of visit, she is able t o participate and confirm ROS reviewed above they are going to Home in September which they are very much looking forward to; she has 9 grandchildren Assessment and Plan Assessment and plan (1) Rash and nonspecific skin eruption: Status: Acute Assessment and plan: Vasculitic? Drug-induced? Manifestation from cancer? Biopsy today pending surgical consult, cultures pending [place]patient [facility] [place] follow-up as needed pending work-up (2) Primary malignant neoplasm of right lower lobe of lung: Status: Acute Assessment and plan: Continues with immunotherapy, followed by [facility] [place]ology team Most recent scans demonstrate stable disease with no new metastasis and improved aeration in right lung, acceptable for ongoing treatment Plan to continue immunotherapy as long as stable disease and how she is feeling, if progression consider alternative therapies (3) Weakness: Status: Acute Assessment and plan: Continue working with PT, PT recommendations for home health PT (4) Brain metastases: Status: Acute Assessment and plan: With memory changes status post metastasis and radiation therapy, stable (5) Palliative care patient: Status: Acute Assessment and plan: Followed outpatient by palliative care, continue to follow, 3-month follow-up or sooner as needed (6) Memory loss due to medical condition: Status: Acute Assessment and plan: Was referred to [facility] neurolog[place], no follow-up at this time,Nohemy requesting follow- up locally with [facility] Referral placed (7) Secondary malignant neoplasm of bone: Status: Acute Assessment and plan: Stable, pain controlled, no opioids needed at this time (8) Fall: Status: Acute Assessment and plan: Secondary to weakness (9) Cough: Status: Acute Assessment and plan: Recommend scheduled benzonatate (10) Advance care planning: Status: Acute Assessment and plan: Jud reports a previously completed advance directive, identifying her and son Ishan as healthcare agents. All forms completed prior to treatment Reviewed advanced directive today Full code, would want CPR, would want intubation, however if was not aware and intubated with no chance of survival of extubation - would consider comfort measures, if unable to maintain weight with oral intake would consider feeding tube, would reassess with quality of life goals, would want antibiotics and IV fluids; at this time all life-sustaining interventions are desired Quality of life goals include being happy, getting up and walking, being able to communicate and be aware Requested Jud bring in or mail copy of completed advanced directive for uploading in chart, CM was unable to find it in state directory, will ask PCP Review of Systems Narrative: as per HPI PFSH All Active Problems (Updated 09/05/22 @ 15:43 by Roopa Hauser NP) Cough (Acute) Advance care planning (Acute) Weakness (Acute) Rash and nonspecific skin eruption (Acute) Primary malignant neoplasm of right lower lobe of lung (Acute) Brain metastases (Acute 08/17/21) Bilateral lower extremity edema (Acute) Palliative care patient (Acute) Hyponatremia (Acute) Memory loss due to medical condition (Acute) Secondary malignant neoplasm of bone (Acute) Fall (Acute 10/20/20) Lung cancer, lower lobe (Acute) non-small cell,Stage IV Lytic bone lesion of hip (Acute) Right thigh pain (Acute) Surgical History S/P hip hemiarthroplasty (10/21/20) [facility] [place] Family History Mother Hypertension Heart disease Maternal Grandmother Stroke Father Myeloma Paternal Grandmother Cancer ovarian Social History Smoking/Tobacco Use Status: Current every day Tobacco Type: cigarettes and e- cigarettes Tobacco: How many years used: 30 Smoking risk assessment performed?: Yes Alcohol Intake: current Alcohol Intake frequency: 0-2 drinks per day Alcohol type: wine Drug use: Rarely Substance use type: does not use Adopted: No Caregiver/Support person: No Household members: children and other Details: Moved from [place] 2018 helps daughter on her farm Housing: house Number of Children: 3 number of grandchildren: 9 Communication Needs: None Education Level: master's degree Do you need help understanding health information?: Rarely 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 Pets and animals: Yes (1) Pets and animals: dog(s) Sexually active: No Do you think of yourself as: straight/heterosexual Current gender identity: female What is your relationship status?: How often do you talk on the phone with friends or family?: once per week Do you belong to any clubs or organized social groups?: no Panel score (0-1 are the most socially isolated patients): 0 What type of physical activity do you participate in: regular exercise Duration: 45-60 minutes/day Frequency: 5-6 times per week Lana/Scientology: Evangelical Special lana needs: No Seatbelt use: always Helmet use: Yes Helmet use: always Drive intox or ride w/intox motorcycle delivery driver: No Do you feel safe at home: Yes Do you feel safe in your relationship?: Yes Female Reproductive History Menstrual Menopause type: natural History History 3 Para 3 Hx # Term Pregnancies Multiple births Hx # Pregnancies Ectopic pregnancies AB induced Hx Number of Living Children AB spontaneous Exam Narrative Exam Narrative: General: older appearing than stated age female, thin ,chronically ill and frail appearing, NAD, comfortable, awake and alert; oriented to person HEENT: Atraumatic, normocephalic, hearing within normal limits Neck: Supple, no visible mass, no JVD Resp: respirations even and unlabored, able to speak full sentences, no cough, no audible wheeze Skin: Did not conduct full skin exam; scattered ecchymosis bilateral upper extremities, BUE bandages on elbows and forearms papular lesion on lip Psych: Calm, cooperative, makes appropriate eye contact, judgment and insight limited to poor Results Last Vital Signs Temp 97.9 F 09/05/22 07:56 Pulse 73 09/05/22 07:56 Resp 16 09/05/22 07:56 BP 112/73 09/05/22 07:56 Pulse Ox 94 09/05/22 07:56 Labs 09/05/22 06:16 09/05/22 06:16 Labs: Laboratory Results - last 24 hr 09/04/22 09/05/22 09/05/22 15:20 06:16 06:16 WBC 19.89 H RBC 4.24 Hgb 12.9 Hct 38.4 MCV 91 MCH 30.4 MCHC 33.6 RDW 14.9 H Plt Count 242 MPV 9.5 Immature Gran % 3.7 Neutrophils % 93.2 Lymphocytes % 2.0 Monocytes % 0.8 Eosinophils % 0.0 Basophils % 0.3 Nucleated RBC % 0.0 Absolute Neutrophils 18.54 H Absolute Lymphocytes 0.40 L Absolute Monocytes 0.16 Absolute Eosinophils 0.00 Absolute Basophils 0.06 Sodium 137 Potassium 3.6 Chloride 105 Carbon Dioxide 23.6 Anion Gap 8.4 BUN 11 Creatinine 0.8 Est GFR (CKD-EPI 2020) 81.21 Glucose 133 H Calcium 7.5 L Magnesium 1.8 Troponin I < 50
[2022-09-05 15:19] VITALS: BP 109/67; PULSE 87; RESP 19; TEMP 36.9; O2SAT 96
--- NOTE | 2022-09-05 17:36 | W.PM.PROGNOT ---
Date of Service Date of service: 09/05/22 Time of Service: 17:36 Assessment and Plan Assessment and plan (1) Rash and nonspecific skin eruption: Status: Acute Assessment and plan: I agree that the rash is likely related to keytruda. We will trial the combination of clotrimazole/bethamethasone on it to see if it makes a difference. This did not look like cellulitis. I do not think there is a role for antibiotics. Will discuss this with [facility] oncology. I do not think that further workup of this will be pursued in our facility. Continue prednisone 30 mg PO daily. (2) Weakness: Status: Acute Assessment and plan: PT recommends home health PT on discharge. (3) Primary malignant neoplasm of right lower lobe of lung: Status: Acute Assessment and plan: NSCLC, followed by [facility] oncology. KEytruda may be the culprit of her symptoms. As above (4) Brain metastases: Status: Acute Assessment and plan: Neurology referral as outpatient (5) Herpes labialis: Status: Acute Assessment and plan: Trial valtrex. (6) DVT prophylaxis: Status: Acute Assessment and plan: SC enoxaparin (7) Discharge planning issues: Status: Acute Assessment and plan: Full code Anticipate discharge home tomorrow. Discussed with Dr Mitchell. Subjective Subjective Interval history since last seen: Ms Cortez states that her rash is not itchy. In fact, she is not even aware she has a rash. She does say she has a h/o cold sores. Denies headache, dizziness, CP, SOB, n/v. Does admit to still having a cough. I still have an upper respiratory.... Met with palliative care. Remains full code. Would like to see neurology as outpatient. Evaluated by general surgery, who do not feel that Ms Cortez would heal well from the skin biopsy and recommended against it; however, bringing up the possibility of the leg rash being caused by keytruda that the patient is on. Exam Narrative Exam Narrative: General: Pleasant female who looks older than her stated age, A&Ox2 (knows month and year; does not know which hospital she is in, but knows she is in the hospital). HEENT: EOMI, MMM, several crusted lesions L upper lip c/w herpes labialis Heart: RRR, no m/r/g Lungs: CTAB, coughing Abdomen: soft, nontender, nondistended Extremities: no edema BLEs, does have reticular bilateral frontal and medial thigh rash without any evidence of bulla, not excoriated Objective Last Vital Signs Temp 36.9 C 09/05/22 15:19 Pulse 87 09/05/22 15:19 Resp 19 09/05/22 15:19 BP 109/67 09/05/22 15:19 Pulse Ox 96 09/05/22 15:19 Laboratory Results - last 24 hr 09/05/22 09/05/22 06:16 06:16 WBC 19.89 H RBC 4.24 Hgb 12.9 Hct 38.4 MCV 91 MCH 30.4 MCHC 33.6 RDW 14.9 H Plt Count 242 MPV 9.5 Immature Gran % 3.7 Neutrophils % 93.2 Lymphocytes % 2.0 Monocytes % 0.8 Eosinophils % 0.0 Basophils % 0.3 Nucleated RBC % 0.0 Absolute Neutrophils 18.54 H Absolute Lymphocytes 0.40 L Absolute Monocytes 0.16 Absolute Eosinophils 0.00 Absolute Basophils 0.06 Sodium 137 Potassium 3.6 Chloride 105 Carbon Dioxide 23.6 Anion Gap 8.4 BUN 11 Creatinine 0.8 Est GFR (CKD-EPI 2020) 81.21 Glucose 133 H Calcium 7.5 L Magnesium 1.8 Time Spent with Patient Time Spent with Patient: 35-49 minutes Time was spent: preparing to see the patient(eg.review tests), obtaining and/or reviewing separately otained hiistory, ordering medications,tests, procedures, referring, communicating with other health inspector health care facilities, indepentently interpreting results, counseling the patient and care coordination
[2022-09-05] MEDS: valACYclovir 1,000 MG TAB 2000 MG PO (18:14)
--- NOTE | 2022-09-05 18:26 | SCONE_ITS ---
Date of service: 09/05/22 Time of Service: 18:27 Assessment and Plan Assessment and plan (1) Drug-induced skin rash: Status: Acute Assessment and plan: - After reviewing patient's [facility] chart, I think this month rash is most likely due to Keytruda. From reviewing the notes the rash is more extensive when it originally started and appears to be well under control responding to oral and topical steroids. She is asymptomatic. She has no signs of Vázquez- Johan's or toxic epidermal macro lysis at this point. Labs were reviewed today as well. She does have a 20,000 white count. It is unclear if this is from was from an infectious source or from her steroid use. Sed rate is 84 and CRP is greater than 25. Her absolute eosinophilia, is 0. -I did review the case with Dr. Palencia. She does appear to be responding to steroids. Given her extremely poor nutritional status and the fact that she is on Active chemo on high-dose steroids, the odds of her having issues with healing and then giving her chronic wound are high. The rash seems to be resolving on steroids. I would continue steroid therapy. I would not recommend biopsy at this time. We would be happy to reevaluate at your request. This document was created with voice activated software and may contain errors. 65 mins spent with the patient today. (2) History of immunotherapy: Status: Acute (3) Lung cancer, lower lobe: Status: Acute (4) Lytic bone lesion of hip: Status: Acute (5) Memory loss due to medical condition: Status: Acute (6) Secondary malignant neoplasm of bone: Status: Acute (7) Brain metastases: Status: Acute (8) Primary malignant neoplasm of right lower lobe of lung: Status: Acute (9) Rash and nonspecific skin eruption: Status: Acute (10) Weakness: Status: Acute History of Present Illness Narrative: Patient seen and examined for rash. Rash has been present since 09/01/2021. From the notes from [facility] she had a widespread red raised rash on her back and right arm. At that time she was started on topical and oral steroids She had developed flaccid bulla on the right hand, right and left elbows at the time of admission. These are covered with Tegaderm today. She was started on a hydrocortisone cream on 09/01. She was started on oral prednisone 30 mg p.o. daily on 09/01/2022. She has extensive muscle wasting on her legs and arms. She has extensive ecchymotic bruising on her arms, this is most likely from the steroids and blood draws. The other rash areas of bulla -which were on her elbows and her left hand are covered with Tegaderm. There is no rash on her back. She does had a Tegaderm on her coccyx. This was not removed. Per nursing this is to prevent decubitus ulcers because of her low weight/albumin/poor nutritional status. She is seeing nutrition at [facility] and is supposed to be on protein shakes 2-3 times a day. She has a fine macular rash on her inner thighs today only.. It is not open or weeping. Does not appear to be yeast. This could be related to the Keytruda. Patient denies any itching or pain. From reviewing the notes and examining the patient today, I do think the rash is related to the Keytruda. It is also appears to be resolving/responding to the steroids. Review of Systems Unobtainable due to mental condition [facility] All Active Problems (Updated 09/05/22 @ 18:59 by Mary Jo Mitchell DO) Drug-induced skin rash (Acute) Keytruda History of immunotherapy (Acute) Discharge planning issues (Acute) DVT prophylaxis (Acute) Herpes labialis (Acute) Cough (Acute) Advance care planning (Acute) Weakness (Acute) Rash and nonspecific skin eruption (Acute) Primary malignant neoplasm of right lower lobe of lung (Acute) Brain metastases (Acute 08/17/21) Bilateral lower extremity edema (Acute) Palliative care patient (Acute) Hyponatremia (Acute) Memory loss due to medical condition (Acute) Secondary malignant neoplasm of bone (Acute) Fall (Acute 10/20/20) Lung cancer, lower lobe (Acute) non-small cell,Stage IV Lytic bone lesion of hip (Acute) Right thigh pain (Acute) Surgical History S/P hip hemiarthroplasty (10/21/20) [facility] Right Family History Mother Hypertension Heart disease Maternal Grandmother Stroke Father Myeloma Paternal Grandmother Cancer ovarian Social History Smoking/Tobacco Use Status: Current every day Tobacco Type: cigarettes and e- cigarettes Tobacco: How many years used: 30 Smoking risk assessment performed?: Yes Alcohol Intake: current Alcohol Intake frequency: 0-2 drinks per day Alcohol type: wine Drug use: Rarely Substance use type: does not use Adopted: No Caregiver/Support person: No Household members: children and other Details: Moved from [place] 2019 helps daughter on her farm Housing: house Number of Children: 3 number of grandchildren: 9 Communication Needs: None Education Level: master's degree Do you need help understanding health information?: Rarely 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 Pets and animals: Yes (1) Pets and animals: dog(s) Sexually active: No Do you think of yourself as: straight/heterosexual Current gender identity: female What is your relationship status?: How often do you talk on the phone with friends or family?: once per week Do you belong to any clubs or organized social groups?: no Panel score (0-1 are the most socially isolated patients): 0 What type of physical activity do you participate in: regular exercise Duration: 45-60 minutes/day Frequency: 5-6 times per week Lana/Cheondoism: Yazdanism Special lana needs: No Seatbelt use: always Helmet use: Yes Helmet use: always Drive intox or ride w/intox vacuum 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 She has a chronic nonproductive cough. This is most likely due to tumor She has extensive ecchymosis areas on her arms. She has 2 open areas on her elbows. These are currently covered with Mepilex.. She has no rash on her face back arms or torso. She has no rash on her stomach. She has a fine reticular rash confined to her inner thighs. She is a prophylactic Mepilex on her coccyx she night denies any itching, pain, burning from the rash Results Last Vital Signs Temp 36.9 C 09/05/22 15:19 Pulse 87 09/05/22 15:19 Resp 19 09/05/22 15:19 BP 109/67 09/05/22 15:19 Pulse Ox 96 09/05/22 15:19 Labs 09/05/22 06:16 09/05/22 06:16 Labs: Laboratory Results - last 24 hr 09/05/22 09/05/22 06:16 06:16 WBC 19.89 H RBC 4.24 Hgb 12.9 Hct 38.4 MCV 91 MCH 30.4 MCHC 33.6 RDW 14.9 H Plt Count 242 MPV 9.5 Immature Gran % 3.7 Neutrophils % 93.2 Lymphocytes % 2.0 Monocytes % 0.8 Eosinophils % 0.0 Basophils % 0.3 Nucleated RBC % 0.0 Absolute Neutrophils 18.54 H Absolute Lymphocytes 0.40 L Absolute Monocytes 0.16 Absolute Eosinophils 0.00 Absolute Basophils 0.06 Sodium 137 Potassium 3.6 Chloride 105 Carbon Dioxide 23.6 Anion Gap 8.4 BUN 11 Creatinine 0.8 Est GFR (CKD-EPI 2020) 81.21 Glucose 133 H Calcium 7.5 L Magnesium 1.8
[2022-09-05] MEDS: Benzonatate 200 MG CAP PO (20:32)
[2022-09-05] MEDS: diphenhydrAMINE /ZINC ACET CR 30 GM TUBE TP (20:35)
[2022-09-05] MEDS: Clotrimazole/Betamet Diprop Cream 15 GM TUBE TP (20:35)
[2022-09-05 22:49] VITALS: BP 111/71; PULSE 87; RESP 16; TEMP 36.1; O2SAT 95
[2022-09-06] MEDS: valACYclovir 1,000 MG TAB 2000 MG PO (06:40)
[2022-09-06] MEDS: Omeprazole 20 MG CAPCR PO (06:40)
[2022-09-06 06:42] LABS: Abs Immature Grans 0.59 10^3/uL (0.0-0.06); Absolute Basophil Count 0.03 10^3/uL (0.0-0.2); Absolute Eosinophil Count 0.01 10^3/uL (0.0-0.7); Absolute Monocyte Count 0.22 10^3/uL (0.1-0.8); Basophils % 0.3; Eosinophils % 0.1; HCT 32.8 % (36.0-46.0); HGB 11.1 g/dL (11.2-15.7); Immature Grans % 5.1; Lymphocytes % 4.6; MCH 30.6 pg (27.0-33.0); MCHC 33.8 % (32.0-36.0); MCV 90 fL (80-95); MPV 9.6 fL (8.0-11.0); Monocytes % 1.9; Platelet Count 243 10^3/uL (130-400); RBC 3.63 10^6/uL (3.93-5.22); RDW 14.8 % (11.7-14.6); RDW-SD 49.5 fL; WBC 11.64 10^3/uL (4.4-10.8)
[2022-09-06 06:47] LABS: Absolute Lymphocyte Count 0.54 10^3/uL (1.2-3.4); Absolute Neutrophil Count 10.24 10^3/uL (1.2-6.7)
[2022-09-06 07:16] LABS: Anion Gap 6.3 mmol/L (3-11); BUN 18 mg/dL (7-18); C-Reactive Protein 12.09 mg/dL (0.0-0.3); CO2 25.7 mmol/L (21.0-32.0); CREATININE 0.6 mg/dL (0.55-1.02); Calcium 7.5 mg/dL (8.5-10.1); Chloride 104 mmol/L (98-107); Estimated GFR 98.93 (mL/min/1.73m2); Glucose 102 mg/dL (74-106); Magnesium 1.9 mg/dL (1.8-2.4); Potassium 3.7 mmol/L (3.5-5.1); Sodium 136 mmol/L (136-145)
[2022-09-06 07:31] VITALS: BP 130/79; PULSE 69; TEMP 36.5; O2SAT 95
[2022-09-06 07:48] LABS: Diff Comment Diff Reviewed; RBC Morphology Normal
[2022-09-06] MEDS: Gabapentin 100 MG CAP 200 MG PO ×2 (07:56→13:57)
[2022-09-06] MEDS: Sertraline 50 MG TAB PO (07:56)
[2022-09-06] MEDS: predniSONE 10 MG TAB 30 MG PO (07:56)
[2022-09-06] MEDS: Enoxaparin 30 MG/0.3 ML SYR SC (07:57)
[2022-09-06] MEDS: Multivitamin TAB 1 TAB PO (07:57)
[2022-09-06] MEDS: Triamcinolone 0.1% CR 15 GM TUBE TP (07:57)
[2022-09-06] MEDS: Folic Acid 1 MG TAB PO (07:57)
[2022-09-06] MEDS: Benzonatate 200 MG CAP PO ×2 (07:57→13:57)
[2022-09-06] MEDS: Clotrimazole/Betamet Diprop Cream 15 GM TUBE TP (07:58)
--- NOTE | 2022-09-06 08:29 | W.NUTCONSULT ---
Date of service: 09/06/22 Time of Service: 08:29 Nutritional Consult ASSESSMENT: Nutrition consult for poor nutritional status. Ms. Cortez has what is being called a likely drug reaction. It is open in some areas and there are increased protein needs. She is 157 cm and 44 kg which gives her a BMI of 17.7 kg/m2 consistent with underweight. Per Dr. Mitchell's note, she has extensive muscle wasting. She is also weak. Her weight despite being low has been stable for two years now. She is eating 50% of her meals. Calorie counts and protein shakes bid have been ordered. NUTRITIONAL DIAGNOSIS: Moderate malnutrition in the setting of acute on chronic illness related to fair PO intake with increased nutritional needs as evidenced by muscle wasting, weakness and eating less than 75% of her calorie and protein needs for greater than 5 days. INTERVENTION: Will do calorie counts for three days to assess adequacy of intake and use that information to decide if any further nutrition support is warranted. Will provide high calorie, high protein shakes of some sort between meals. We will visit with her and ask her what types of shakes she prefers to improve acceptance. MONITORING AND EVALUATION: 1. Will monitor weight, PO, tolerance to supplements and diet. 2. Will evaluate nutrition care plan ongoing and adjust as needed. Thank you for the consult request. Time Spent in Nutritional Counseling and Treatment: 15 minutes
[2022-09-06] MEDS: Dronabinol 2.5 MG CAP 5 MG PO (11:29)
[2022-09-06] MEDS: Cetirizine 10 MG TAB PO (11:29)
--- NOTE | 2022-09-06 13:11 | PT.INTREAT ---
Date of service: 09/06/22 Time of Service: 11:03 PT Notes Visit Reasons: delirium,falls,wkness,metastatic lung ca,drug rash Inpatient Physical Therapy Treatment Note [facility] Date: 09/06/2022 PRECAUTIONS:Activty as tolerated.? Standard precautions. SUBJECTIVE: Agreeable to working with PT. Denies chest pain, lightheadedness, and headache throughout. Did want to have a small coke after walking about 100 feet. OBJECTIVE: Resting in bed.? Open area on R lateral distal arm uncovered, Nurse Alison and Nurse Eboni aware. Patient with pre-existing dementia and limited short-term memory. ? PAIN: Denies ? BED MOBILITY/TRANSFERS? Supine-sit: supervision ? Sit-stand: supervision with FWW? Stand-sit: supervision with FWW? Bed-Chair: supervision with FWW ? Chair-bed: supervision with FWW ? GAIT? Assistive Device: FWW with wheelchair follow provided ? Weight bearing: FWB Assist: stand by assist ? Distance:? 100 feet + 100 feet ? Deviation: Increased swing time on L.? Mild SOB needing 1 seated rest.? THEREX: Chest expansion exercises with DBE x 5 Seated marches x 10 Chest expansion exercises with DBE x 5 LAQs x 10 ? ASSESSMENT:? Patient tolerated session well without undue fatigue and report of pain. PLAN: 1-2x/day 7x/week for functional mobility progression,? graduated strengtening,? and balance training. TREATMENT CODE/TIME: 05461 x 15 minutes,? 74517 x 11 minutes beginning at 11:03 AM.
--- NOTE | 2022-09-06 15:28 | DSE_ITS ---
Date of service: 09/06/22 Time of Service: 15:28 DS: Diagnosis Discharge Diagnosis (1) Drug-induced skin rash: Status: Acute Asessment and Plan: Due to keytruda (2) Primary malignant neoplasm of right lower lobe of lung: Status: Acute (3) History of immunotherapy: Status: Acute (4) Lytic bone lesion of hip: Status: Acute (5) Secondary malignant neoplasm of bone: Status: Acute (6) Brain metastases: Status: Acute (7) Memory loss due to medical condition: Status: Acute (8) Weakness: Status: Acute (9) Herpes labialis: Status: Acute (10) Cough: Status: Chronic Discharge Plan Disposition Patient Disposition: Home W/Home Health Services Condition: Fair Discharge Details Reason For Visit: delirium,falls,wkness,metastatic lung ca,drug rash Admit Date/Time: 09/04/22 19:06 Admit Provider: Keith Canales Attending Provider: Keith Canales Primary Care Provider: Ok Garcia [facility] Course Hospital Course: Ms Cortez is a 67 year old female with PMHx of 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 The rash was initially described as nonpruritic. The patient was afebrile, but reportedly progressively more weak and confused. The daughter had shared pictures of blister-like lesions on the left upper lip, which by the time of presentation to the ER was scabbed over. There was reportedly a similar lesion on R hand, which had raptured by the time of presentation and was cultured, although the clinical utility of this is unclear. This culture grew Proteus mirabilis and strep pyogenes. The patient had been started on empiric vancomycin in the ER. Blood cultures were done and were negative. Antibiotics were not continued. ER did discuss the case with [facility] [place]ology, who recommended high dose steroids as the rash could be due to keytruda. [facility] dermatology was also consulted and recommended outpatient follow up for a skin biopsy as well as steroids. The patient's antibiotics were not continued, but she did clinically improve. She was evaluated by general surgery for a skin biopsy in house, who did not feel that the patient would heal well from the skin biopsy and felt that the etiology of the rash was keytruda. The lesions on her lip, by the time of my evaluation, did look like herpes labialis, of which she admits to having a history, and she received two doses of valtrex 2000 mg in house, which should be sufficient treatment. She did eventually start to describe the rash on her legs as itchy, and so I do think that there is a role for antihistamines. Instead of taking zyrtec on as needed basis, I think she should be on it daily until her rash resolves. I do not think that the wound culture done in the ER represented a real skin infection. Given her immune-compromised status, however, antibiotics could be considered if no improvement by the time of follow up with oncology on 09/11. (Cefpodoxime would cover both organisms). I discussed the case with [facility] oncology today, who, since the patient has been getting better on prednisone 30 mg daily, feels that this dose of steroids can be continued as outpatient. Her prescription for prednisone was renewed. The patient was evaluated by palliative care. She remains full code. She would need to follow up with palliative care as outpatient. She was evaluated by PT who recommend home health PT, which is being ordered. I also think she would benefit from having a home health nurse come to assess the status of the raptured blisters, such as the one on her R hand. She is being referred to neurology as outpatient for her gradual cognitive decline. Care for patient as well as completion of her discharge summary took 45 minutes. Home Meds and New Rx's Prescriptions: New clotrimazole-betamethasone 1-0.05 % Cream 1 applic topical BID Qty: 45 0RF Rx Instructions: apply to areas of rash on BLEs Banophen Anti-Itch 2-0.1 % Cream 1 applic topical Q4H PRN PRN (Reason: Itching) Qty: 28 0RF Continued multivitamin [Daily Multi-Vitamin] Tablet 1 tab PO DAILY dronabinol [Marinol] 5 mg capsule 5 mg PO BID Rx Instructions: administer before lunch and evening meal/dinner benzonatate 100 mg capsule 100 - 200 mg PO TID PRN (Reason: cough) Qty: 30 3RF omeprazole 20 mg capsule,delayed release(DR/EC) 20 mg PO DAILY ondansetron 4 mg tablet,disintegrating 4 mg PO Q8H PRN (Reason: nausea and vomiting) Qty: 30 3RF folic acid 1 mg tablet 1 mg PO DAILY prochlorperazine maleate 10 mg tablet 10 mg PO Q6H PRN gabapentin 100 mg capsule 200 - 300 mg PO TID Qty: 300 3RF Rx Instructions: for cancer related pain sertraline 50 mg tablet 50 mg PO DAILY Qty: 30 3RF naloxone [Narcan] 4 mg/actuation spray,non-aerosol 1 spray intranasal Q2-3M PRN Rx Instructions: spray 1 dose into ONE nostril; alternate nostrils w each dose until help arrives triamcinolone acetonide 0.1 % cream 1 applic TOPICAL BID Patient Comments: APPLY TOPICALLY TO THE AFFECTED AREA(S) TWO TIMES A DAY prednisone 10 mg tablet 30 mg PO DAILY Qty: 30 0RF Changed cetirizine [All Day Allergy (cetirizine)] 10 mg tablet 10 mg PO DAILY Qty: 0 0RF Discontinued dexamethasone 4 mg tablet See Rx Instructions PO .COMPLEX Rx Instructions: 2 tabs 2 times daily for 5 days, then 2 tabs daily for 5 days, then 1 tab daily for 10 days orally; Discharge Instructions Instructions: Acute Rash (GEN), Brain Metastasis (GEN), Weakness (GEN), Altered Mental Status (GEN) Additional Instructions: Return with any fever, worsening of rash, chest pain, or shortness of breath. Follow up with oncology as directed. Follow up with dermatology. Care Plan Goals: Home with new home health PT and nursing. Stand Alone Forms: Nursing Discharge Form Referrals: [facility] [Provider Group] - 09/11/22 1:00 pm [place]ERMATOLOGY,[facility] [place]] - (BLE rash, ?drug eruption due to keytruda) [facility] [OTHER] - 09/29/22 10:30 am Ok Garcia DO [Primary Care Provider] - 09/07/22 1:45 pm Shonna Franks MD [ [facility] STAFF PHYSICIAN] - (Cognitive impairment post brain met resection and brain radiation) Activity:: Activity as Tolerated Equipment/Supplies:: No Equipment Needed Diet:: As Tolerated Discharge Orders Discharge Orders: Discharge Order (Routine); Ordered 09/06/22 Ordered By: Chelita Palencia Discharge Data Discharge Date/Time-TO BE ENTERED AT DEPARTURE: 09/06/22 15:56 DS: Summary Time Spent with Patient providing and/or coordinating discharge services: Greater than 30 minutes Status at Discharge Functional status at discharge: uses cane/walker Overall status at discharge: patient is progressing back to baseline Mental Status: mental status grossly normal (A&Ox2 which is her baseline) Speech and Movement: speech and movement normal Mood: congruent mood Affect: normal affect Exam Narrative Exam Narrative: General: Pleasant female who looks older than her stated age, A&Ox2 (knows month and year; does not know which hospital she is in, but knows she is in the hospital). HEENT: EOMI, MMM, several crusted lesions L upper lip c/w herpes labialis, look more healed today Heart: RRR, no m/r/g Lungs: CTAB, coughing Abdomen: soft, nontender, nondistended Extremities: no edema BLEs, does have reticular bilateral frontal and medial thigh rash without any evidence of bulla, not excoriated, appears better; R hand/elbow lesions dressed. Psych Mental Status: mental status grossly normal (A&Ox2 which is her baseline) Speech and Movement: speech and movement normal Mood: congruent mood Affect: normal affect DS: Data Vitals/I&O Vitals and I&O: Vital Signs Temperature 36.5 C 09/06/22 07:31 Temperature Source Tympanic 09/06/22 07:31 Pulse 69 09/06/22 07:31 Pulse Rhythm Regular 09/06/22 08:57 Pulse 67 09/04/22 20:31 Respiratory Rate 16 09/05/22 22:49 Respiratory Effort Normal 09/06/22 08:57 Respiratory Depth Normal 09/06/22 08:57 Respiratory Pattern Normal 09/06/22 08:57 Blood Pressure 130/79 09/06/22 07:31 Blood Pressure Mean 89 09/04/22 20:31 Pulse Oximetry 95 09/06/22 07:31 Oxygen Delivery Method Room Air 09/06/22 07:31 Oxygen Flow Rate 0 09/06/22 07:31 Pain Level 0 09/05/22 22:49 Comment ivf fluids infusing NS @ 150 ml/hr 09/04/22 21:22 Intake & Output 09/05/22 09/06/22 09/06/22 23:59 11:59 23:59 Intake Total 360 / 1360 Output Total 200 / 200 Balance 360 / 1010 -200 / -200 Weight 44 kg Intake: Oral 360 / 360 Output: Urine 200 / 200 Other: Urine Color Yellow Urine Appearance Cloudy Clear Urine Odor None Comment pt voided in toliet / missed hat Voiding Methods Toilet Toilet Data Completed and Pending Completed studies during hospitalization [Text1]: CXR 09/04/22: Right inferior hilar mass.? No evidence of pneumonia. CT head w/o contrast 09/04/22: Prior post treatment changes in the left frontal lobe.? No acute abnormality. Labs on day of discharge: Labs from last 24 hours 09/06/22 09/06/22 06:22 06:22 WBC 11.64 H RBC 3.63 L Hgb 11.1 L Hct 32.8 L MCV 90 MCH 30.6 MCHC 33.8 RDW 14.8 H Plt Count 243 MPV 9.6 Immature Gran % 5.1 Neutrophils % 88.0 Lymphocytes % 4.6 Monocytes % 1.9 Eosinophils % 0.1 Basophils % 0.3 Nucleated RBC % 0.0 Absolute Neutrophils 10.24 H Absolute Lymphocytes 0.54 L Absolute Monocytes 0.22 Absolute Eosinophils 0.01 Absolute Basophils 0.03 RBC Morphology Normal Sodium 136 Potassium 3.7 Chloride 104 Carbon Dioxide 25.7 Anion Gap 6.3 BUN 18 Creatinine 0.6 Est GFR (CKD-EPI 2020) 98.93 Glucose 102 Calcium 7.5 L Magnesium 1.9 C-Reactive Protein 12.09 H Preliminary micro results at discharge 09/04/22 12:55 Blood Culture - Preliminary Blood NO GROWTH 48 HOURS 09/04/22 12:25 Blood Culture - Preliminary Blood NO GROWTH 48 HOURS 09/04/22 16:05 Wound Culture - Preliminary Hand - Right Proteus mirabilis Strep Pyogenes (Group A) PFSH All Active Problems (Updated 09/06/22 @ 15:38 by Chelita Palencia MD) Drug-induced skin rash (Acute) Keytruda History of immunotherapy (Acute) Discharge planning issues (Acute) DVT prophylaxis (Acute) Herpes labialis (Acute) Cough (Chronic) Advance care planning (Acute) Weakness (Acute) Rash and nonspecific skin eruption (Acute) Primary malignant neoplasm of right lower lobe of lung (Acute) Brain metastases (Acute 08/17/21) Bilateral lower extremity edema (Acute) Palliative care patient (Acute) Hyponatremia (Acute) Memory loss due to medical condition (Acute) Secondary malignant neoplasm of bone (Acute) Fall (Acute 10/20/20) Lung cancer, lower lobe (Acute) non-small cell,Stage IV Lytic bone lesion of hip (Acute) Right thigh pain (Acute) Surgical History S/P hip hemiarthroplasty (10/21/20) [facility] [place] Family History Mother Hypertension Heart disease Maternal Grandmother Stroke Father Myeloma Paternal Grandmother Cancer ovarian Social History Smoking/Tobacco Use Status: Current every day Tobacco Type: cigarettes and e- cigarettes Tobacco: How many years used: 30 Smoking risk assessment performed?: Yes Alcohol Intake: current Alcohol Intake frequency: 0-2 drinks per day Alcohol type: wine Drug use: Rarely Substance use type: does not use Adopted: No Caregiver/Support person: No Household members: children and other Details: Moved from [place] 2019 helps daughter on her farm Housing: house Number of Children: 3 number of grandchildren: 9 Communication Needs: None Education Level: master's degree Do you need help understanding health information?: Rarely 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 Pets and animals: Yes (1) Pets and animals: dog(s) Sexually active: No Do you think of yourself as: straight/heterosexual Current gender identity: female What is your relationship status?: How often do you talk on the phone with friends or family?: once per week Do you belong to any clubs or organized social groups?: no Panel score (0-1 are the most socially isolated patients): 0 What type of physical activity do you participate in: regular exercise Duration: 45-60 minutes/day Frequency: 5-6 times per week Lana/Anglican: Religion Special lana needs: No Seatbelt use: always Helmet use: Yes Helmet use: always Drive intox or ride w/intox chair car driver: No Do you feel safe at home: Yes Do you feel safe in your relationship?: Yes Female Reproductive History Menstrual Menopause type: natural History History 3 Para 3 Hx # Term Pregnancies Multiple births Hx # Pregnancies Ectopic pregnancies AB induced Hx Number of Living Children AB spontaneous Time Spent with Patient Time Spent with Patient: 45-69 minutes Time was spent: preparing to see the patient(eg.review tests), obtaining and/or reviewing separately otained hiistory, ordering medications,tests, procedures, referring, communicating with other health primary care physician, indepentently interpreting results, counseling the patient and care coordination
--- NOTE | 2022-09-06 16:37 | PDOC.CMDIS ---
Date of service: 09/06/22 Time of Service: 16:38 LACE Index Scoring Tool Questions: Length of Stay (in days): 2 Was the patient admitted via the E.D.?: Yes Comorbidities: Metastatic Solid Tumor (Metastatic brain and lung cancer) E.D. Visits: 1 Answers: Total Score: 11 Risk of Readmission: High Risk Care Management Discharge Plan Reason for Hospitalization: Rash and nonspecific skin eruption, Weakness Discharge Plan: Evon is discharged home with [facility]. She will transport via private vehicle with daughter. Evon will follow up with outpatient providers and her discharge plan of care as instructed. See discharge summary. Patient/Family Education Needs: Review discharge instructions, limitations and plan to follow up with outpatient providers. Discuss ask me three Services Needed at Discharge: Home Health Care Services (H PT)
--- NOTE | 2022-09-06 17:18 | PDOC.HHF2F ---
Home Health Referral Home Health Orders Clinical synopsis of why skilled professionals are needed: Ms Cortez is a 67 year old female with PMHx of metastatic NSCLC w/ h/o mets to the bone and brain, s/p excision and XRT of the brain lesion as well as whole body radiation, on keytruda, as well as h/o memory loss due to above, who presented to [facility] ED on 09/04/22 for a reticular-appearing rash on BLEs with a couple of areas of similar reticular-appearing rash on BUEs. The rash was initially described as nonpruritic. The patient was afebrile, but reportedly progressively more weak and confused. The daughter had shared pictures of blister-like lesions on the left upper lip, which by the time of presentation to the ER was scabbed over. There was reportedly a similar lesion on R hand, which had raptured by the time of presentation and was cultured, although the clinical utility of this is unclear. This culture grew Proteus mirabilis and strep pyogenes. The patient had been started on empiric vancomycin in the ER. Blood cultures were done and were negative. Antibiotics were not continued. ER did discuss the case with [facility] [place], who recommended high dose steroids as the rash could be due to keytruda. [facility] dermatology was also consulted and recommended outpatient follow up for a skin biopsy as well as steroids. The patient's antibiotics were not continued, but she did clinically improve. She was evaluated by general surgery for a skin biopsy in house, who did not feel that the patient would heal well from the skin biopsy and felt that the etiology of the rash was keytruda. The lesions on her lip, by the time of my evaluation, did look like herpes labialis, of which she admits to having a history, and she received two doses of valtrex 2000 mg in house, which should be sufficient treatment. She did eventually start to describe the rash on her legs as itchy, and so I do think that there is a role for antihistamines. Instead of taking zyrtec on as needed basis, I think she should be on it daily until her rash resolves. I do not think that the wound culture done in the ER represented a real skin infection. Given her immune-compromised status, however, antibiotics could be considered if no improvement by the time of follow up with oncology on 09/11. (Cefpodoxime would cover both organisms). I discussed the case with [facility] oncology today, who, since the patient has been getting better on prednisone 30 mg daily, feels that this dose of steroids can be continued as outpatient. Her prescription for prednisone was renewed. The patient was evaluated by palliative care. She remains full code. She would need to follow up with palliative care as outpatient. She was evaluated by PT who recommend home health PT, which is being ordered. I also think she would benefit from having a home health nurse come to assess the status of the raptured blisters, such as the one on her R hand. She is being referred to neurology as outpatient for her gradual cognitive decline. Medical diagnosis necessitation home health referral: Generalized weakness, h/o NSCLC with mets to brain and bone, healing bullous lesions that would benefit from wound care Registered Nurse: Check all that apply Instruct on new or changed medication(s)/assess compliance: Ordered Assess for exacerbation of medical condition, instruct patient/caregivers on signs and symptoms to report for early detection: Ordered Assess wound for signs and symptoms of infection, instruct on wound care and/or provide skilled wound care consisting of: healing RUE raptured bullae, R scalp rash, BLE rash Physical Therapist: Check all that apply Increase strength & endurance for safe mobility at home: Ordered To design/establish home maintenance program: Ordered Fall reduction therapy program for patient with history of frequent falls: Ordered Home safety evaluation and teaching/gait training including stair management (if applicable): Ordered Occupational Therapist: Evaluate and treat for patient unable to perform ADL/IADL/self-care: Ordered Upper extremity strengthening, range and motion: Ordered Home Bound Status Requires the aid of supportive device (check all that apply): Walker Assistance of another person (Describe assistance and medical necessity): The patient is forgetful/confused, requires assistance of another person Describe why leaving home would require a considerable and taxing effort: Requires frequent rest periods and Confusion Encounter Date and Reason: I certify that a FTF encounter for this patient was performed on September 06, 2022 and that such encounter was related to the primary reason the patient requires home health services. The encounter was conducted in the following manner: By me as the certifying physician, CENTRAL STERILE TECHNICIAN, PA or By an inpatient physician, CENTRAL STERILE TECHNICIAN or PA during an inpatient stay who communicated findings to me, Certification And Authentication I certify that I composed the above information based on my clinical judgment relating to this patient's medical condition and, if applicable, clinical findings communicated to me by the NPP or inpatient physician who performed the FTF encounter. Name of Provider that will be monitoring home health services: Ok Garcia
--- NOTE | 2022-09-08 08:54 | IN_ITS ---
Date of service: 09/06/22 PT Notes Visit Reasons: delirium,falls,wkness,metastatic lung ca,drug rash Physical Therapy Inpatient Discharge Summary Date: 09/06/2022 Dates of service: 09/05/2022 through 09/06/2022 This is a clinical summary of care provided for the duration of dates listed above. No charge was made in the completion of this documentation. Referring Doctor:? Dr. Canales PT Orders: PT CONSULT: Fall risk assessment Precautions: fall, standard Patient Profile/Admitting Diagnosis:??Patient admitted 09/04/22 after presenting to ED following a? fall at home. She is chronically ill due to metastatic lung CA, currently undergoing immunotherapy. Currently being treated for drug rash that developed approx 2 weeks ago. Has dementia at baseline. PMHx: All Active Problems? Weakness (Acute) Rash and nonspecific skin eruption (Acute) Primary malignant neoplasm of right lower lobe of lung (Acute) Brain metastases (Acute 08/17/21) Bilateral lower extremity edema (Acute) Palliative care patient (Acute) Hyponatremia (Acute) Memory loss due to medical condition (Acute) Secondary malignant neoplasm of bone (Acute) Fall (Acute 10/20/20) Lung cancer, lower lobe (Acute) non-small cell,Stage IVLytic bone lesion of hip (Acute) Right thigh pain (Acute) Surgical History? S/P hip hemiarthroplasty (10/21/20) [facility]? Right Social History/Home Situation: Lives with daughter, who is her primary caregiver. States that she normally ambulates independently, and does not manage stairs. Equipment Owned/DME: Unable to identify Subjective: NT. See most recent SENIOR BUSINESS ARCHITECT notes. Objective:? General Observation: NT. See most recent SENIOR BUSINESS ARCHITECT notes. Mental Status: NT. See most recent SENIOR BUSINESS ARCHITECT notes. Pain: NT. See most recent SENIOR BUSINESS ARCHITECT notes. ROM: Right Upper Extremity: Grossly WFL Left Upper Extremity: Grossly WFL Right Lower Extremity: AROM allows hip flexion to 110*, knee motion 0-120*. Ankle motion WFL. Left Lower Extremity:? AROM allows hip flexion to 110*, knee motion 0-120*. Ankle motion WFL. Strength: Right Upper Extremity: Grossly WFL Left Upper Extremity: Grossly WFL Right Lower Extremity: Hip flexion 4-/5. Quads 4/5. HS 4-/5. Ankle DF 4/5. Left Lower Extremity:? Hip flexion 4-/5. Quads 4/5. HS 4-/5. Ankle DF 4-/5. BED MOBILITY/TRANSFERS? Supine-sit: supervision ? Sit-stand: supervision with FWW? Stand-sit: supervision with FWW? Bed-Chair: supervision with FWW ? Chair-bed: supervision with FWW ? GAIT? Assistive Device: FWW with wheelchair follow provided ? Weight bearing: FWB Assist: stand by assist ? Distance:? 100 feet + 100 feet ? Deviation:? Increased swing time on L.? Mild SOB needing 1 seated rest.? THEREX: Chest expansion exercises with DBE x 5 Seated marches x 10 Chest expansion exercises with DBE x 5 LAQs x 10 ? Balance:? Static Sitting: good Dynamic Sitting: good Static Standing: good Dynamic Standing: fair Assessment:?? Patient is a 67 year old female referred to physical therapy services for fall risk assessment.? Patient presents with gait and balance impairments related to chronic illness, as demonstrated by the following impairment level findings: 1. decreased LE strength 2. gait impairments 3. balance impairments 4. recent history of fall ?Impairments are contributing to the following functional limitations: 1. gait impairments requiring AD for short distance ambulation 2. high risk for future falls Patient is assessed as Moderate [id number]? ? complexity based on the following: History:?Patient is a chronically ill 67 year old female, presenting with mobility impairments after fall at home. She is being treated for lung cancer w ith brain and bony mets, and has associated gait and balance impairments. She will require utilization of FWW upon discharge. Will also benefit from initiation of HH PT to maximize safety and mobility in the home, as well as assess for any equipment needs or home modifications due to patient's chronic illness. Will initiate PT in acute care setting to maximize safety and mobility, however she is safe for discharge home with FWW and assistance from family once medically stable. Examination: functional limitations as noted above Presentation: evolving Decision Making: moderate complexity Goals: Goals X1 week 1. Supine-Sit : independent NOT MET 2. Sit-Supine? : independent NOT MET 3. Sit-Stand? : independent NOT MET 4. Stand-Sit? : independent NOT MET 5. Bed-Chair? : supervision with FWW NOT MET 6. Chair-Bed : supervision with FWW NOT MET 7. Gait : supervision with FWW x 50' NOT MET DISCHARGE RECOMMENDATIONS: Home with services (HOME HEALTH PT) TREATMENT CODE/TIME: [place] Thank you for the opportunity to participate in the care of this patient. Zayra Taveras PT, DPT, CLT [facility] [place], [place]
== END 2022-09-06 15:56 | disposition home health service (06) ==
LOC: ER 18:20 → MS 20:43
PROVIDERS: Internal Medicine; Physician Assistant; Admitting Provider Internal Medicine; Emergency Provider Nurse Practitioner Family; PCP Family Medicine; Visit Provider Internal Medicine
DX: L27.0 Generalized skin eruption due to drugs and medicaments taken internally (principal); R53.1 Weakness; T45.1X5A Adverse effect of antineoplastic and immunosuppressive drugs, initial encounter; C34.31 Malignant neoplasm of lower lobe, right bronchus or lung; C79.31 Secondary malignant neoplasm of brain; B00.1 Herpesviral vesicular dermatitis; R41.3 Other amnesia; C79.51 Secondary malignant neoplasm of bone; R05.9 Cough, unspecified; R41.0 Disorientation, unspecified; G89.29 Other chronic pain; E87.1 Hypo-osmolality and hyponatremia; F17.210 Nicotine dependence, cigarettes, uncomplicated; F17.290 Nicotine dependence, other tobacco product, uncomplicated; M62.58 Muscle wasting and atrophy, not elsewhere classified, other site; W19.XXXA Unspecified fall, initial encounter
CPT/HCPCS: 36415; 80048; 80053; 82805; 84145; 85652; 87040; 87077; 93005; 96361; 96365; 96366; 96375; 97110; 97530; 99222; 99285; 70450; 71046; 81003; 81015; 83605; 83735; 84484; 85025; 85610; 85730; 86140; 87070; 87186; 87205; 93010; 99223; 99233; 99239; G0378; J1650; J2930; J7512

== ENCOUNTER → 2022-09-05 15:56 | Outpatient (BNVA) | payer MEDICARE, SELFPAY | PROVIDERS: PCP Family Medicine; Referring Provider Family Medicine; Visit Provider Psychiatry & Neurology Neurology ==

== ENCOUNTER → 2022-09-12 10:20 | Outpatient (BNVA) | payer MEDICARE, SELFPAY | PROVIDERS: PCP Family Medicine; Referring Provider Nurse Practitioner Family; Visit Provider Nurse Practitioner Adult Health | DX: R41.89 Other symptoms and signs involving cognitive functions and awareness (principal); C79.31 Secondary malignant neoplasm of brain; C79.51 Secondary malignant neoplasm of bone; Z92.3 Personal history of irradiation; Z98.890 Other specified postprocedural states | CPT/HCPCS: 99204; 99215 ==

== ENCOUNTER 2022-09-25 02:52 | Outpatient (CLI) | payer MEDICARE, SELFPAY ==
[2022-09-25 08:50] LABS: Abs Immature Grans 0.11 10^3/uL (0.0-0.06); Absolute Basophil Count 0.02 10^3/uL (0.0-0.2); Absolute Eosinophil Count 0.05 10^3/uL (0.0-0.7); Absolute Lymphocyte Count 0.27 10^3/uL (1.2-3.4); Absolute Neutrophil Count 6.56 10^3/uL (1.2-6.7); Basophils % 0.3; Eosinophils % 0.7; HCT 38.4 % (36.0-46.0); HGB 12.2 g/dL (11.2-15.7); Immature Grans % 1.5; Lymphocytes % 3.6; MCH 30.7 pg (27.0-33.0); MCHC 31.8 % (32.0-36.0); MCV 97 fL (80-95); MPV 8.8 fL (8.0-11.0); Monocytes % 6.7; Neutrophils % 87.2; Platelet Count 198 10^3/uL (130-400); RBC 3.97 10^6/uL (3.93-5.22); RDW 15.7 % (11.7-14.6); RDW-SD 55.4 fL; WBC 7.51 10^3/uL (4.4-10.8)
[2022-09-25 09:13] LABS: ALT 581 U/L (14-59); AST 199 U/L (15-37); Albumin 2.3 g/dL (3.4-5.0); Alkaline Phosphatase 157 U/L (46-116); Anion Gap 5.8 mmol/L (3-11); BUN 13 mg/dL (7-18); Bilirubin, Total 1.2 mg/dL (0.2-1.0); CO2 28.2 mmol/L (21.0-32.0); CREATININE 0.8 mg/dL (0.55-1.02); Calcium 8.7 mg/dL (8.5-10.1); Chloride 103 mmol/L (98-107); Estimated GFR 81.21 (mL/min/1.73m2); FREE T4 1.19 ng/dL (0.76-1.46); Glucose 106 mg/dL (74-106); Potassium 3.7 mmol/L (3.5-5.1); Sodium 137 mmol/L (136-145); TSH 0.26 uIU/mL (0.36-3.74); Total Protein 6.2 g/dL (6.4-8.2)
[2022-09-25 10:09] LABS: Vitamin B12 1199 pg/mL (193-986)
== END 2022-09-25 02:53 | disposition home or self-care (01) ==
LOC: LBO 02:52
PROVIDERS: Nurse Practitioner Adult Health; PCP Family Medicine; Visit Provider Internal Medicine Medical Oncology
DX: C34.31 Malignant neoplasm of lower lobe, right bronchus or lung (principal); R41.9 Unspecified symptoms and signs involving cognitive functions and awareness; Z79.899 Other long term (current) drug therapy
CPT/HCPCS: 36415; 80053; 82607; 83735; 84439; 84443; 85025

== ENCOUNTER 2022-10-03 13:21 | Outpatient (REF) | payer MEDICARE, SELFPAY ==
[2022-10-03 15:53] LABS: ALT 46 U/L (14-59); AST 12 U/L (15-37); Albumin 2.8 g/dL (3.4-5.0); Alkaline Phosphatase 84 U/L (46-116); Anion Gap 10.5 mmol/L (3-11); BUN 14 mg/dL (7-18); Bilirubin, Total 0.3 mg/dL (0.2-1.0); CO2 28.5 mmol/L (21.0-32.0); CREATININE 0.8 mg/dL (0.55-1.02); Calcium 8.2 mg/dL (8.5-10.1); Chloride 107 mmol/L (98-107); Estimated GFR 81.21 (mL/min/1.73m2); Glucose 110 mg/dL (74-106); Potassium 3.2 mmol/L (3.5-5.1); Sodium 146 mmol/L (136-145); Total Protein 6.1 g/dL (6.4-8.2)
[2022-10-04 10:00] LABS: Hepatitis B Surface Ag Negative (Negative)
[2022-10-04 10:37] LABS: Hepatitis C Ab w Rflx HCV PCR Negative (Negative)
[2022-10-04 11:02] LABS: HBs Antibody, Quant <3.1 mIU/mL (See Note); Hepatitis B Surface Ab Negative (See Note)
== END 2022-10-03 13:22 | disposition home or self-care (01) ==
LOC: LBN 13:21
PROVIDERS: PCP Family Medicine; Visit Provider Internal Medicine Medical Oncology
DX: C34.31 Malignant neoplasm of lower lobe, right bronchus or lung (principal); K75.4 Autoimmune hepatitis
CPT/HCPCS: 80053; 86706; 86803; 87340